=== PATIENT | male | born 1960 | race Caucasian/White ===

== ENCOUNTER 2019-07-12 07:42 | Outpatient (CLI) | payer OTHER, SELFPAY ==
[2019-07-12 08:29] LABS: Alanine Aminotransferase 50 U/L (4-50); Albumin Level 4.5 g/dL (3.5-5.1); Alkaline Phosphatase 71 U/L (38-126); Aspartate Amino Transferase 38 U/L (17-59); Bilirubin,Total 0.5 mg/dL (0.2-1.3); Blood Urea Nitrogen 14 mg/dL (9-20); Calcium 8.8 mg/dL (8.4-10.2); Carbon Dioxide 26 mmol/L (22-30); Chloride 107 mmol/L (98-107); Cholesterol 184 mg/dL (0-200); Estimated Glomerular Filt Rate > 60; Glucose 133 mg/dL (75-110); HDL Direct 47 mg/dL; Potassium 4.1 mmol/L (3.4-5.0); Sodium 140 mmol/L (137-145); Triglycerides 262 mg/dL (<150)
[2019-07-12 08:40] LABS: LDL Cholesterol Direct 118 mg/dL
== END 2019-07-12 07:43 | disposition home or self-care (01) ==
PROVIDERS: PCP Internal Medicine; Visit Provider Internal Medicine
DX: E78.5 Hyperlipidemia, unspecified (principal)
CPT/HCPCS: 36415; 80053; 80061

== ENCOUNTER 2019-12-02 07:19 | Outpatient (CLI) | payer OTHER, SELFPAY ==
--- NOTE | ~2019-12-02 | XR_ITS ---
EXAMINATION: XR ankle LT min 3V DATE: 12/02/2019 08:11 INDICATION: Osteoarthritis TECHNIQUE: Anteroposterior, lateral, mortise, and additional oblique view of the ankle were obtained. COMPARISON: None. FINDINGS: Bone alignment is normal. There is no fracture. There is mild osteoarthritis at the tibiota lar and talonavicular joints. Dorsal and plantar calcaneal enthesophytes are noted. The soft tissues are unremarkable. IMPRESSION: 1. Mild osteoarthritis without acute osseous abnormality. Reviewed, dictated and finalized at location B.
--- NOTE | ~2019-12-02 | XR_ITS ---
EXAMINATION: XR hand RT min 3V INDICATION: Osteoarthritis TECHNIQUE: Three views of the right hand are obtained. COMPARISON: 04/16/2018 FINDINGS: There is unchanged mild osteoarthritis of the triscaphe, first carpometacarpal, and first m etacarpophalangeal joints. Moderate osteoarthritis of the second and third metacarpophalangeal joints is also unchanged. There is no fracture. The soft tissues are unremarkable. IMPRESSION: 1. Polyarticular osteoarthritis without acute findings or significant interval change. Reviewed, dictated and finalized at location B.
--- NOTE | ~2019-12-02 | XR_ITS ---
EXAMINATION: XR lumbar spine 2-3V DATE: 12/02/2019 08:11 INDICATION: Osteoarthritis TECHNIQUE: Anteroposterior and lateral views of the lumbar spine, and cone-down lateral view of the l umbosacral junction were obtained. COMPARISON: CT, 11/16/2018 FINDINGS: No acute fracture is identified. Bone alignment is normal. There is a chronic and unchanged L2 compression fracture. Intervertebral disc spaces are normal. There is mild facet osteoarthritis o f the lower lumbar spine. The bowel gas pattern is normal. Calcified atherosclerosis is noted. Degene rative osteophytes project from the anterior endplates of multiple vertebral bodies. IMPRESSION: 1. Mild lumbar spondylosis without acute findings. 2. Unchanged chronic L2 compression fracture. Reviewed, dictated and finalized at location B.
--- NOTE | ~2019-12-02 | XR_ITS ---
EXAMINATION: XR thoracic spine 3V DATE: 12/02/2019 08:11 INDICATION: Osteoarthritis TECHNIQUE: AP, lateral and lateral swimmer's views of the thoracic spine were obtained. COMPARISON: None. FINDINGS: There is no fracture, dislocation, or subluxation. The vertebral body heights and alignment are normal. There is mild loss of intervertebral disc space height at multiple levels in the thoraci c spine. Small degenerative osteophytes project from the anterior endplates of multiple vertebral bod ies. IMPRESSION: 1. Mild thoracic spondylosis without acute findings. Reviewed, dictated and finalized at location B.
--- NOTE | ~2019-12-02 | XR_ITS ---
EXAMINATION: XR hand LT min 3V INDICATION: Osteoarthritis unspecified TECHNIQUE: Three views of the left hand are obtained. COMPARISON: 11/07/2016 FINDINGS: There is unchanged mild to moderate osteoarthritis at the first through third metacarpophal angeal joints. No fracture is identified. Bone alignment is normal. Mild osteoarthritis is seen in a few interphalangeal joints. Soft tissues are unremarkable. IMPRESSION: 1. Polyarticular osteoarthritis without acute findings or significant interval change. Reviewed, dictated and finalized at location B.
--- NOTE | ~2019-12-02 | XR_ITS ---
EXAMINATION: XR ankle RT min 3V INDICATION: Osteoarthritis TECHNIQUE: Four views of the right ankle are obtained. COMPARISON: None available FINDINGS: There is mild osteoarthritis at the tibiotalar joint. There is no fracture, dislocation, or subluxation. Bone alignment is normal. The soft tissues are unremarkable. Dorsal and plantar calcane al enthesophytes are noted. There is mild osteoarthritis of the talonavicular joint. IMPRESSION: 1. Mild osteoarthritis without acute osseous abnormality. Reviewed, dictated and finalized at location B.
[2019-12-02 08:16] LABS: Basophils Absolute Auto 0.1 K/mm3 (0.0-0.1); Basophils Percent Auto 0.8 % (0.2-1.2); Eosinophils Absolute Auto 0.2 K/mm3 (0-0.3); Eosinophils Percent Auto 1.8 % (0-4.4); Hemoglobin 14.9 g/dL (14.0-18.0); Immature Granulocyte Absolute 0.26 K/mm3 (0.00-0.031); Immature Granulocyte Percent A 2.4 % (0-0.5); Lymphocytes Absolute Auto 4.41 K/mm3 (0.9-3.2); Lymphocytes Percent Auto 40.1 % (18.3-44.2); Mean Corpuscular HGB Conc 33.1 g/dl (32-36); Mean Corpuscular Hemoglobin 30.6 pg (26-34); Mean Corpuscular Volume 92.4 fl (80-100); Mean Platelet Volume 9.9 fl (7.4-10.4); Monocytes Percent Auto 8.6 % (2.6-8.5); Neutrophils Absolute Auto 5.1 K/mm3 (1.3-6.7); Neutrophils Percent Auto 46.3 % (45.5-73.1); Platelet Count Result 286 k/mm3 (150-375); Red Blood Count 4.87 M/mm3 (4.6-6.20); Red Cell Distribution Width 13.1 % (11.5-14.5)
[2019-12-02 08:21] LABS: Alanine Aminotransferase 51 U/L (4-50); Albumin Level 4.6 g/dL (3.5-5.1); Alkaline Phosphatase 87 U/L (38-126); Anion Gap 12.9 mmol/L (7-16); Aspartate Amino Transferase 23 U/L (17-59); Bilirubin,Total 0.5 mg/dL (0.2-1.3); Blood Urea Nitrogen 19 mg/dL (9-20); CRP < 0.5 mg/dL (<1.0); Calcium 9.5 mg/dL (8.4-10.2); Carbon Dioxide 26 mmol/L (22-30); Chloride 103 mmol/L (98-107); Cholesterol 229 mg/dL (0-200); Estimated Glomerular Filt Rate > 60; Glucose 153 mg/dL (75-110); HDL Direct 54 mg/dL; Potassium 3.9 mmol/L (3.4-5.0); Sodium 138 mmol/L (137-145); Triglycerides 282 mg/dL (<150); Uric Acid 4.5 mg/dL (3.5-8.5)
[2019-12-02 08:30] LABS: LDL Cholesterol Direct 137 mg/dL
[2019-12-02 08:46] LABS: Free T4 Free Thyroxine 0.81 ng/mL (0.78-2.19)
[2019-12-02 12:23] LABS: Complement C3 170 mg/dL (88-165); Rheumatoid Factor < 8.6 IU/ML (<12)
[2019-12-05 21:24] LABS: Anti Cyclic Citrullinated Pept 155 Units (<20)
[2019-12-05 22:07] LABS: SS-A <1.0; SS-B <1.0; Scleroderma 70 Antibody <1.0
[2019-12-06 09:44] LABS: ANCA Screen Negative (Negative)
[2019-12-06 18:59] LABS: Complement Total CH50 >60 U/mL (31-60)
== END 2019-12-02 07:20 | disposition home or self-care (01) ==
PROVIDERS: PCP Internal Medicine; Visit Provider Internal Medicine
DX: E78.5 Hyperlipidemia, unspecified (principal); M25.50 Pain in unspecified joint; M19.90 Unspecified osteoarthritis, unspecified site; M19.071 Primary osteoarthritis, right ankle and foot; M19.072 Primary osteoarthritis, left ankle and foot; M47.894 Other spondylosis, thoracic region; M47.896 Other spondylosis, lumbar region; M19.041 Primary osteoarthritis, right hand; M19.042 Primary osteoarthritis, left hand
CPT/HCPCS: 36415; 72072; 72100; 73130; 73610; 80053; 80061; 84439; 84443; 84550; 85025; 86021; 86038; 86140; 86160; 86162; 86200; 86225; 86235; 86430

== ENCOUNTER 2020-01-02 09:45 | Outpatient (CLI) | payer OTHER, SELFPAY ==
--- NOTE | ~2020-01-02 | CT_ITS ---
EXAMINATION: CT chest wo con DATE: 01/02/2020 10:08 INDICATION: J84.89 Other specified interstitial pulmonary diseases. Shortness of breath. TECHNIQUE: Computed tomography (CT) of the chest was performed without intravenous contrast. Addition al 3D reconstructions utilizing coronal maximum intensity projection (MIP) were performed. Automated exposure control and iterative reconstruction technique were employed. The dose-length product was 60 8.60 mGy-cm. COMPARISON: 11/16/2018 FINDINGS: Chronic mild atelectasis/scarring at the medial lingula and right middle lobe. There is mild bronchie ctasis and small amount of mucus plugging extending towards the region of scarring in the right middl e lobe. Significant improvement in previously seen peripheral groundglass opacities in the dependent lower lobes, essentially resolved on the left and with only mild residual opacities on the right. Jesus e of the groundglass opacity on the axial images appears to correspond to linear discoid atelectasis but appreciated on the sagittal and coronal images. Several scattered tiny calcified and noncalcified pulmonary nodules likely sequela of old granulomatous disease. Chronic 9 mm flat noncalcified pleura l plaque at the apex of the left hemidiaphragm which is unchanged dating back to 05/05/2010. No pleur al effusion. Heart size is normal. Mild scattered atherosclerotic coronary artery calcification. Rail Washer cesar tiny pericardial effusion. Thoracic aorta is normal in caliber with mild scattered atheroscleroti c calcification. No pathologically enlarged thoracic lymphadenopathy. Diffuse hepatic steatosis. Mild thoracic spondylosis. Bone island at the right glenoid. IMPRESSION: 1. Improvement in prior peripheral groundglass opacities in the bilateral lower lobes essentially res olved on the left and significantly decreased on the right. Given the appearance, improvement and pre sence of more definitive mild discoid atelectasis would favor additional atelectasis over chronic int erstitial lung disease such as in a nonspecific interstitial pneumonia (NSIP). 2. Diffuse hepatic steatosis. Reviewed, dictated and finalized at location A. IMPRESSION: 1. Improvement in prior peripheral groundglass opacities in the bilateral lower lobes essentially resolved on the left and significantly decreased on the righ t. Given the appearance, improvement and presence of more definitive mild disco id atelectasis would favor additional atelectasis over chronic interstitial anabelle g disease such as in a nonspecific interstitial pneumonia (NSIP). 2. Diffuse hepatic steatosis.
== END 2020-01-02 09:46 | disposition home or self-care (01) ==
PROVIDERS: PCP Internal Medicine; Visit Provider Internal Medicine Critical Care Medicine
DX: J84.9 Interstitial pulmonary disease, unspecified (principal); K76.0 Fatty (change of) liver, not elsewhere classified
CPT/HCPCS: 71250

== ENCOUNTER 2020-02-24 07:56 | Outpatient (CLI) | payer OTHER, SELFPAY ==
[2020-02-24 08:39] VITALS: PULSE 77; O2SAT 97
[2020-02-24 08:43] VITALS: PULSE 104; O2SAT 95
[2020-02-24 08:44] VITALS: PULSE 104; O2SAT 94
[2020-02-24 08:45] VITALS: PULSE 109; O2SAT 95
[2020-02-24 08:56] VITALS: PULSE 68; O2SAT 96
--- NOTE | 2020-02-24 08:56 | HOMEO2EVAL ---
Home Oxygen Evaluation RC: Home Oxygen (O2) Evaluation Start: 02/24/20 08:53 Freq: Status: Active Protocol: RPE Activity Type Activity Date Activity User E-Sign Co-Sign Detail Recorded Client Recorded Date Recorded By Document 02/24/20 08:39 KRM [id number] 02/24/20 08:56 KRM Document 02/24/20 08:43 KRM [id number] 02/24/20 08:56 KRM Document 02/24/20 08:44 KRM [id number] 02/24/20 08:56 KRM Document 02/24/20 08:45 KRM [id number] 02/24/20 08:56 KRM Document 02/24/20 08:56 KRM [id number] 02/24/20 08:56 KRM 02/24/20 02/24/20 02/24/20 08:39 08:43 08:44 Home O2 Evaluation Test Phase Resting Exercise Exercise Oxygen Delivery Room Air Room Air Room Air Pulse Oximetry (90-100 %) 97 95 94 Pulse Rate (60-100 beats/min) 77 104 H 104 H Activity Tolerance Good Good Rating of Perceived Dyspnea (PD) +2 Mild, Some +3 Moderate Difficulty, Difficulty, But Noticeable to Can Continue the Observer Home Oxygen Evaluation Comments Treatment Charges O2 Evaluation 02/24/20 02/24/20 08:45 08:56 Home O2 Evaluation Test Phase Exercise Resting Oxygen Delivery Room Air Room Air Pulse Oximetry (90-100 %) 95 96 Pulse Rate (60-100 beats/min) 109 H 68 Activity Tolerance Good Rating of Perceived Dyspnea (PD) +3 Moderate Difficulty, But Can Continue Home Oxygen Evaluation Comments Pt. walked 400 feet and 6 flights of stairs Treatment Charges
== END 2020-02-24 07:57 | disposition home or self-care (01) ==
PROVIDERS: PCP Internal Medicine; Visit Provider Internal Medicine Critical Care Medicine
DX: J44.9 Chronic obstructive pulmonary disease, unspecified (principal)
CPT/HCPCS: 94618

== ENCOUNTER 2020-07-01 10:30 | Emergency (ER) | payer OTHER, SELFPAY ==
[2020-07-01] VITALS (18 sets, daily range): BP systolic 116–139; BP diastolic 59–82; PULSE 72–96; RESP 16–30; TEMP 36.6; O2SAT 92–100
--- NOTE | ~2020-07-01 | XR_ITS ---
XR chest 1V portable DATE: 07/01/2020 11:53 INDICATION: Shortness of breath. Covid-positive. TECHNIQUE: Portable AP chest on July 01, 2020 at 1150 hours COMPARISON: 01/02/2020 CT chest FINDINGS: Normal heart size. No hilar or mediastinal enlargement. There are patchy infiltrates in both lower lung zones. No pleural effusion or pulmonary vascular roscoe estion or pneumothorax. IMPRESSION: Patchy bilateral lower lung infiltrates Reviewed, dictated and finalized at location A. TURNER
--- NOTE | ~2020-07-01 | CT_ITS ---
EXAMINATION: CTA chest PE protocol DATE: 07/01/2020 13:24 INDICATION: Shortness of breath, cough. Elevated d-dimer. Covid-positive. TECHNIQUE: Computed tomography angiography (CTA) of the chest was performed with 100 mL Omnipaque-350 intravenous contrast timed to evaluate the pulmonary arteries. Coronal maximum intensity projection 3D-reconstructions were created by the technologist. Automated exposure control and iterative reconst ruction technique were employed. Exam dose: 997.29 mGy-cm total exam DLP. COMPARISON: 01/02/2020 CT diagnostic chest examination 07/01/2020 portable AP chest FINDINGS: There is diagnostic contrast enhancement of the pulmonary arteries and no evidence of pulmo nary embolism. No thoracic aortic aneurysm or dissection. Normal heart size. No pericardial or pleural effusion. No hilar or mediastinal mass lesion or lymphadenopathy. Normal morphology of the adrenal glands. Included upper abdominal structures are unremarkable. There are primarily peripheral patchy infiltrates in the upper lobes. There are more extensive left a nd right lower lobe infiltrates. Bilateral pneumonia and aspiration pneumonitis are considerations. Included skeletal structures are unremarkable with exception of cupping of the superior vertebral end plate of L2 consistent with probable remote compression fracture. IMPRESSION: No evidence of pulmonary embolism Patchy bilateral pulmonary rates, greater in the lower lobes Reviewed, dictated and finalized at Location A. Reviewed, dictated and finalized at location A. NESS PROPOSAL REP
[2020-07-01] MEDS: ALBUTEROL SULFATE NEB 2.5 MG/0.5 ML INH 5 MG INHALATION (11:29)
[2020-07-01] MEDS: IPRATROPIUM BR 0.02% INH SOLN 0.5 MG/2.5 ML VIAL INHALATION (11:29)
[2020-07-01 11:36] LABS: Basophils Percent Auto 0.4 % (0.2-1.2); Eosinophils Absolute Auto 0.3 K/mm3 (0-0.3); Eosinophils Percent Auto 6.1 % (0-4.4); Hematocrit 44.1 % (42.0-52.0); Hemoglobin 14.1 g/dL (14.0-18.0); Immature Granulocyte Absolute 0.07 K/mm3 (0.00-0.031); Immature Granulocyte Percent A 1.4 % (0-0.5); Lymphocytes Absolute Auto 1.31 K/mm3 (0.9-3.2); Lymphocytes Percent Auto 26.7 % (18.3-44.2); Mean Corpuscular Hemoglobin 29.6 pg (26-34); Mean Corpuscular Volume 92.6 fl (80-100); Mean Platelet Volume 9.1 fl (7.4-10.4); Monocytes Absolute Auto 0.8 K/mm3 (0.1-0.6); Monocytes Percent Auto 16.5 % (2.6-8.5); Neutrophils Absolute Auto 2.4 K/mm3 (1.3-6.7); Neutrophils Percent Auto 48.9 % (45.5-73.1); Platelet Count Result 250 k/mm3 (150-375); Red Blood Count 4.76 M/mm3 (4.6-6.20); Red Cell Distribution Width 14.1 % (11.5-14.5); White Blood Count 4.9 K/mm3 (4.5-10.0)
[2020-07-01 11:48] LABS: D Dimer 1.85 ug/mL (<0.48)
[2020-07-01 11:54] LABS: Alanine Aminotransferase 204 U/L (4-50); Albumin Level 4.3 g/dL (3.5-5.1); Alkaline Phosphatase 280 U/L (38-126); Anion Gap 9 mmol/L (8-16); Aspartate Amino Transferase 114 U/L (17-59); Bilirubin,Total 0.4 mg/dL (0.2-1.3); Blood Urea Nitrogen 18 mg/dL (9-20); Calcium 8.5 mg/dL (8.4-10.2); Carbon Dioxide 26 mmol/L (22-30); Chloride 105 mmol/L (98-107); Estimated CRCL calculation 98 ml/min; Estimated Glomerular Filt Rate > 60; Glucose 97 mg/dL (75-110); Potassium 4.2 mmol/L (3.4-5.0); Sodium 140 mmol/L (137-145)
[2020-07-01 12:01] LABS: Add Urine Microscopic? YES; Appearance Urine Clear (Clear); Bacteria Urine Trace /hpf; Bilirubin Urine Negative (Negative); Blood Urine Negative (Negative); Color Urine Amber (Yellow); Glucose Urine UA Negative (Negative); Ketones Urine Negative (Negative); Leukocyte Esterase Ur Negative LEU/UL (Negative); Mucus Urine Rare /lpf; Nitrate Urine Negative (Negative); Protein Urine 1+ mg/dL (Negative); Specific Grav Ur 1.026 (1.001-1.035); Urobilinogen Urine Negative mg/dL (<2.0)
--- NOTE | 2020-07-01 12:26 | ED.URI ---
HPI - URI/Sore Throat General Chief Complaint: Upper Respiratory Infection Stated Complaint: Lethergy, COVID Positive Time Seen by Provider: 07/01/20 10:44 Source: patient Mode of arrival: ambulatory Limitations: no limitations History of Present Illness HPI Narrative: Patient with history of COPD presents Covid positive to 3 days ago however his symptoms began 1 week ago. Patient reports he has had headache, body aches, fever, chills, cough, loose stool intermittently for 1 week. He states that he is tired of his symptoms and he has also noticed some increasing shortness of breath over the past few days. Patient states he has been taking his COPD medication regimen as instructed. Patient denies any wheezing. Patient states he is very annoyed by his body aches from laying around all week and his dry cough. Patient states that he called his primary care 3 days ago and was given a prescription for Z-Ovidio and Tessalon Perles which has not resolved his symptoms. Patient states that he is very agitated as he feels he should be better by now. Related Data Home Medications Medication Instructions Recorded Confirmed Symbicort 07/01/20 albuterol sulfate [ProAir HFA] INHALATION 07/01/20 07/01/20 brimonidine 1 drp EACH EYE BID 07/01/20 hydroxychloroquine 400 mg PO DAILY 07/01/20 latanoprost drp 07/01/20 leflunomide 10 mg PO DAILY 07/01/20 metformin 1,000 mg PO BID 07/01/20 rosuvastatin [Crestor] 20 mg PO DAILY 07/01/20 sulfasalazine 1,000 g PO BID 07/01/20 Allergies Allergy/AdvReac Type Severity Reaction Status Date / Time No Known Allergies Allergy Unknown Verified 07/01/20 13:16 Review of Systems Review of Systems: Narrative: CONSTITUTIONAL: Reports intermittent fevers and body aches, chills, or sweats. EYES: Denies visual changes, redness, or discharge. ENT: Denies rhinorrhea, congestion, sore throat, or otalgia. CARDIOVASCULAR: Denies chest pain, palpitations, or edema. RESPIRATORY: Reports cough or dyspnea. GASTROINTESTINAL: Denies abdominal pain, nausea, vomiting, or diarrhea. GENITOURINARY: Denies dysuria or hematuria. SKIN: Denies rash or itching. MUSCULOSKELETAL: Denies back pain, joint pain, or myalgia. NEUROLOGIC: Reports headache denies numbness, dizziness, or weakness. PSYCHIATRIC: Denies anxiety or depression. [facility] Family History Family History Sibling Acute myocardial infarction Father Cerebrovascular accident Family history of chronic obstructive pulmonary disease Mother Family history of congestive heart failure, Onset Age: 60 Social History Social History Smoking status: Former smoker Smoking end date: 05/08/12 Exam Narrative: Exam Narrative: GENERAL: Well-appearing, well-nourished, and in no acute distress. HEAD: Normocephalic, atraumatic. EYES: PERRLA and EOMI. ENT: Nares clear, no rhinorrhea or epistaxis. Mucous membranes moist. Oropharynx without tonsillar hypertrophy exudate or other lesions. Bilateral TMs pearly peterson nonbulging NECK: Supple. No adenopathy or masses. CHEST: Clear to auscultation. No respiratory distress. No wheezes rales or rhonchi. Speaking in clear sentences without difficulty. Tight cough heard during exam but not persistent. HEART: Regular rate and rhythm. No murmur heard. Normal peripheral pulses. ABDOMEN: Soft, nontender, nondistended, normal active bowel sounds. EXTREMITIES: Normal range of motion. No edema. SKIN: Warm, dry, no rash. NEURO: No focal deficits. Alert and oriented x3. PSYCH: Patient is very agitated. Course Vital Signs Vital signs: Vital Signs Temperature 98 F 07/01/20 10:40 Pulse Rate 90 07/01/20 10:40 Respiratory Rate 22 H 07/01/20 10:40 Blood Pressure 130/62 07/01/20 10:40 Pulse Oximetry 94 07/01/20 10:40 Temperature 97.9 F 07/01/20 13:10 Pulse Rate 73 0
== END 2020-07-01 16:30 | disposition home or self-care (01) ==
PROVIDERS: Physician Assistant; Emergency Provider Emergency Medicine; PCP Internal Medicine
DX: U07.1 COVID-19 (principal)
CPT/HCPCS: 36415; 71045; 71275; 80053; 81001; 85025; 85380; 94640; 96365; 99284; J0131; Q9967

== ENCOUNTER → 2021-06-16 11:37 | Outpatient (CLI) | payer OTHER, SELFPAY ==
--- NOTE | ~2021-06-16 | CT_ITS ---
EXAMINATION:CT diagnostic chest wo con DATE: 06/16/2021 11:56 INDICATION: Nonspecific interstitial pneumonia. TECHNIQUE: Computed tomography (CT) of the chest was performed without intravenous contrast. Automate d exposure control and iterative reconstruction technique were employed. The dose-length product (DLP ) was 667.41 mGy-cm. COMPARISON: Chest CT 07/01/2020 FINDINGS: There is mild emphysema. There are subpleural bands in the lower lobes. There is mild atele ctasis in right middle lobe and lingula. There is mild bronchiectasis in right middle lobe and lingul a. A calcified left lung nodule is consistent with old granulomatous disease. No pleural effusion. Th e heart size is normal. There are coronary artery calcifications. No pericardial effusion. There are calcifications of aortic valve. There is mild thoracic spondylosis. IMPRESSION: 1. Mild emphysema and mild chronic lung disease, improved from 07/01/2020. Reviewed, dictated and finalized at location A. R CLEANER
== END ==
PROVIDERS: Visit Provider Nurse Practitioner Family
DX: J84.89 Other specified interstitial pulmonary diseases (principal); Z87.891 Personal history of nicotine dependence; J43.9 Emphysema, unspecified
CPT/HCPCS: 71250

== ENCOUNTER → 2023-02-08 07:38 | Outpatient (CLI) | payer OTHER, SELFPAY ==
--- NOTE | ~2023-02-08 | XR_ITS ---
Right Hand Technique: PA and lateral views were obtained. Clinical History: Osteoarthritis COMPARISON: 12/02/2019 Findings: No acute fracture or dislocation is seen. Osseous alignment is anatomic. There is mild to m oderate osteoarthritis of the first, second, and third metacarpophalangeal joints. Soft tissues are u nremarkable. Impression: Mild to moderate osteoarthritis of the first, second, and third metacarpophalangeal joints, similar o verall to prior exam. Reviewed, dictated and finalized at location M. Impression: Mild to moderate osteoarthritis of the first, second, and third metacarpophalan geal joints, similar overall to prior exam.
--- NOTE | ~2023-02-08 | XR_ITS ---
Left Hand Technique: PA and lateral views were obtained. Clinical History: Osteoarthritis COMPARISON: 12/02/2019 Findings: No acute fracture or dislocation is seen. There is mild to moderate osteoarthritis of the f irst, second, and third metacarpophalangeal joints, similar to prior exam.. Soft tissues are unremark able. Impression: Degenerative change of the first, second, and third metacarpophalangeal joints, similar to prior exam . Reviewed, dictated and finalized at location M. Impression: Degenerative change of the first, second, and third metacarpophalangeal joints, similar to prior exam.
== END ==
DX: M19.90 Unspecified osteoarthritis, unspecified site (principal)
CPT/HCPCS: 73120

== ENCOUNTER 2023-02-14 07:25 | Outpatient (CLI) | payer MEDICARE, SELFPAY ==
--- NOTE | ~2023-02-14 | CT_ITS ---
EXAMINATION: CT lung screening DATE: 02/14/2023 08:55 INDICATION: Personal history of nicotine dependence TECHNIQUE: Computed tomography (CT) of the chest was performed without intravenous contrast. The dose -length product was 258.73 mGy-cm. Automated exposure control and iterative reconstruction technique were employed. COMPARISON: CT dated 06/16/2019 FINDINGS: Heart size is normal. No focal air space disease, pulmonary edema, pleural effusion or susp ected pneumothorax. No thoracic lymphadenopathy. There is a possible left renal mass posteriorly, sara ge 138. No endobronchial lesions. There is linear subsegmental atelectasis/scarring predominantly aff ecting the lower lungs. There is mild bronchial wall thickening predominantly affecting the lower lob es, suspicious for bronchitis. No suspicious pulmonary nodules or masses. Mild emphysema. No focal ly tic or blastic lesions. There is atherosclerosis of the aorta and coronary arteries. IMPRESSION: 1. Lung-RADS category 1: Negative. Continue annual screening with noncontrast low-dose chest CT in 12 months. Reviewed, dictated and finalized at location L. IMPRESSION: 1. Lung-RADS category 1: Negative. Continue annual screening with noncontrast l ow-dose chest CT in 12 months.
== END 2023-02-14 07:26 | disposition home or self-care (01) ==
PROVIDERS: Visit Provider Physician Assistant
DX: Z12.2 Encounter for screening for malignant neoplasm of respiratory organs (principal); Z87.891 Personal history of nicotine dependence
CPT/HCPCS: 71271

== ENCOUNTER 2024-10-24 01:18 | Day surgery (SDC) | payer MEDICARE, SELFPAY ==
[2024-10-09 12:22] VITALS: BMI 33.2
--- NOTE | 2024-10-23 09:41 | P.PNAN_ITS ---
Anes - Eval Pre Procedure Procedure: Operation Date: 10/24/24 09:00 Proposed Procedures p Colonoscopy - Humphrey Weston MD Date/Time: 10/23/24 09:41 Pre Op Diagnosis: personal hx colon polyps Patient Data Age: 64 Gender: M Height: 1.78 m Weight: 105 kg Allergies Allergy/AdvReac Type Severity Reaction Status Date / Time No Known Allergies Allergy Unknown Verified 10/09/24 12:18 Home Medications ?Medication ?Instructions ?Recorded ?Confirmed ?Type brimonidine 0.15 % eye drops 1 drp EACH EYE BID 07/01/20 10/09/24 History hydroxychloroquine 400 mg PO DAILY 07/01/20 10/09/24 History latanoprost 0.005 % eye drops 1 drp EACH EYE DAILY 07/01/20 10/09/24 History leflunomide 10 mg tablet 10 mg PO DAILY 07/01/20 10/09/24 History metformin 1,000 mg tablet 1,000 mg PO BID 07/01/20 10/09/24 History rosuvastatin 20 mg tablet (Crestor) 20 mg PO DAILY 07/01/20 10/09/24 History alprazolam 0.25 mg tablet (Xanax) 0.25 mg PO QHS PRN anxiety 01/23/23 10/09/24 History fluticasone propionate 50 1 spray intranasal BID #16 grams 01/23/23 10/09/24 Rx mcg/actuation nasal spray,suspension (Flonase Allergy Relief) albuterol sulfate 2.5 mg/3 mL 2.5 mg (3 mL) inhalation Q4-6H PRN 04/04/23 10/09/24 Rx (0.083 %) solution for nebulization shortness of breath or wheezing #180 mL albuterol sulfate 90 mcg/actuation 2 inh inhalation Q4-6H PRN 09/26/23 10/09/24 Rx aerosol inhaler (ProAir HFA) shortness of breath or wheezing 90 days #25.5 grams budesonide-formoterol HFA 160 2 puff inhalation Q12H #30.6 grams 01/03/24 10/09/24 Rx mcg-4.5 mcg/actuation aerosol inhaler (Symbicort) semaglutide 0.25 mg or 0.5 mg (2 mg subcut 01/03/24 01/03/24 History mg/3 mL) subcutaneous pen injector (Ozempic) valsartan 160 mg tablet 160 mg PO DAILY 01/03/24 10/09/24 History Results Review: All pre-operative results and documents have been reviewed as part of the pre- operative evaluation. [facility] Past Medical History Medical History (Updated 10/23/24 @ 09:41 by Romeo Gutierrez, DO) Rheumatoid arthritis Diabetes type 2, controlled Chronic obstructive pulmonary disease, unspecified Obstructive sleep apnea (adult) (pediatric) Family History Family History Sibling Acute myocardial infarction Father Cerebrovascular accident Family history of chronic obstructive pulmonary disease Mother Family history of congestive heart failure, Onset Age: 60 Social History Social History Smoking packs per day: 1 Smoking cigarettes per day: 20.0 Years smoked: 30 Smoking pack-years: 30.00 Smoking status: Former smoker Tobacco type: cigarettes Smoking end date: 05/08/12 Alcohol intake: never Substance use: never Substance use type: does not use Living arrangements: with family Spiritual care concerns: No Exam Day of Procedure 10/23/24 09:41
--- OUTSIDE RECORDS SUMMARY | 2024-10-24 01:23 | XMS_ITS | Encounter Summary ---
Author Organization [facility] Address [facility] [place] [address] Care Team Providers Care Nurses' Association Counselor Name Role Phone Alexandra Tang Primary Care Provider [phone] Encounter Details Date Type Department Care Team (Latest Contact Info) Description 01/18/2018 Abstract [facility] , Andrea Craig MD Social History Tobacco Use Types Packs/Day Years Used Date Smoking Tobacco: Never Assessed Sex and Gender Information Value Date Recorded Sex Assigned at Not on file Legal Sex Male 7:08 PM CDT Gender Identity Not on file Sexual Orientation Not on file documented as of this encounter Plan of Treatment Not on file documented as of this encounter Visit Diagnoses Not on filedocumented in this encounter Care Teams Nurses' Association Counselor Relationship Specialty Start Date End Date Alexandra Tang APNP [address] [place] [id number] PCP - General NURSE PRACTITIONER 04/20/18 documented as of this encounter
--- OUTSIDE RECORDS SUMMARY | 2024-10-24 01:23 | XMS_ITS | Encounter Summary ---
Author Organization [facility] Health Address [address] [place] [address] Care Team Providers Care Virtual Classroom Manager Name Role Phone Darren Zapata MD Primary Care Provider [phone] Pcp, [facility] Primary Care Provider Unavailable Encounter Details Date Type Department Care Team (Late st Contact Info) Description 01/31/2019 Lab Requisition [facility] [address] [facility] [place] [address] Fredy Sanchez MD [address] [place] [address] Social History Tobacco Use Types Packs/Day Years Used Date Smoking Tobacco: Every Day Cigarettes 0.8 35 Smokeless Tobacco: Never Alcohol Use Standard Drinks/Week Comments Yes 0 (1 standard drink = 0.6 oz pur e alcohol) 12/d during football games. 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 Not on file Not on file documented as of this encounter Plan of Treatment Not on file documented as of this encounter Procedures Procedure Name Priority Date/Time Associated Diagnosis Comments DERMATOPATHOLOGY Routine 01/31/2019 12:0 0 AM CDT documented in this encounter Results * DERMATOPATHOLOGY (01/31/2019 12:00 AM CDT) Case Report Dermatopathology Report Case: [id number] Authorizing Provider: Fredy Sanchez MD Collected: 01/31/2019 12:00 AM Ordering Location: [facility] Received: 01/31/2019 12:28 PM Pathologist: Hasmukh Martini MD Specimen: Skin, right thumb 3:04 PM CDT DERMATOPATHOLOGY LABORATORY Final Diagnosis Specimen A. SKIN, right thumb: PSORIASIFORM DERMATITIS (L44.8) (see microscopic description and comment) 3:04 PM CDT DERMATOPATHOLOGY LABORATORY at 1504 CDT Clinical History R/O psoriasis vs hand eczema. 3:04 PM CDT DERMATOPATHOLOGY LABORATORY Gross Description Specimen A: Received is one formalin filled container labeled with the patient's name and designated right thumb. The specimen consists of a shave biopsy measuring [id number]. Jar 0. 3:04 PM CDT DERMATOPATHOLOGY LABORATORY Microscopic Description Specimen A. SKIN, right thumb: There is psoriasiform hyperplasia of the epidermis with focal parakeratosis and spongiosis. There is a superficial, mainly lymphohistiocytic inflammatory infiltrate. Grocott's methenamine silver (GMS) stain fails to highlight fungal elements in the available sections. COMMENT: The histological findings are favored to represent hand eczema. Early or partially treated psoriasis is less likely because the granular layer, while focally diminished, is preserved. 3:04 PM CDT DERMATOPATHOLOGY LABORATORY Disclaimer An external and internal positive and negative controls are appropriate for the histochemical, immunohistochemical and immunofluorescence stain(s) in this case (if any), except where stated explicitly. The performance characteristics of the stain(s) cited in this report were developed and its performance characteristic determined by the Dermatopathology Laboratory at [facility], directed by Dr. Darren Martini. These tests need not be, and therefore are not, approved by the [place] Food and Drug Administration. The tests are used for clinical purposes. Billing Codes Specimen Charges Stain Charges 54670 1 29637 1 10/01/201 9 3:04 PM CDT DERMATOPATHOLOGY LABORATORY Embedded Images 9 3:04 PM CDT DERMATOPATHOLOGY LABORATORY Pathology/Cytolog y TISSUE SPECIMEN FROM SKIN / Unknown 01/31/2019 01/31/2019 12:28 PM CDT us Fredy Sanchez MD LAB - PATHOLOGY/CYTOLOGY ORDERAB LES Final Result DERMATOPATHOLOGY LABORATORY [facility] - Department of Dermatology [address] [facility] [address]th [address] Lab [address] [phone] documented in this encounter Visit Diagnoses Not on filedocumented in this encounter Care Teams Virtual Classroom Manager Relationship Specialty Start Date End Date Darren Zapata MD [address] [address] PCP - General Internal Medicine 12/27/11 12/01/22 [facility] PCP - General 12/02/22 documented as of this encounter
--- OUTSIDE RECORDS SUMMARY | 2024-10-24 01:23 | XMS_ITS | Clinical Summary ---
Author Organization [facility] Address [address] [place] [address] Care Team Providers Care Private Chef Name Role Phone Pcp, [facility] Primary Care Provider Unavailable Source Comments [facility],non-owned Affiliates and Associated Physician Practices is amultiple site organization consisting of ambulatory clinics and hospital sitesin [place], [place], [place] and [place]. This disclosure is being madepursuant to the Care Everywhere program and may not contain all information available regarding this patient. Last updated 18.[employer] [facility] Allergies No known active allergies Medications * Be aware that medications may not be up to date on this document. Alwaysverify current medications with the patient. ALPRAZolam (XANAX) 1 MG tabletIndications :Anxiety,Need for vaccine for Td (tetanus-diphther ia),Lipid screening,Screeni ng for other and unspecified endocrine, nutritional, metabolic, and immunity disorders,Tobacco abuse,History of colonic polyps,PHILIP (obstructive sleep apnea),Osteoarthr itis of hand Take 1 Tab by mouth at bedtime. 30 Tab 0 02/01/2011 Active Active Problems Problem Noted Date Diagnosed Date Hyperlipidemia with target LDL less than 130 Overview (03/15/2015): Hypertriglyceridemia TSH normal 11/16 Healthy Heart Diet handout 12/17 History of colonic polyps 02/01/2011 Tobacco abuse 02/01/2011 Alcohol use 02/01/2011 Overview (02/01/2011): Binge pattern with football viewing. Preventative health care 02/01/2011 Overview (02/01/2011): SASHA: opts to stop screening. Osteoarthritis of hand 02/01/2011 Anxiety 10/12/2010 PHILIP (obstructive sleep apnea) 02/01/2010 Plantar fasciitis 02/01/2010 Overview (02/01/2011): H/o cortisone injections. Using inserts. Immunizations Immunization Administration Dates Next Due INFLUENZA VACCINE 01/27/2011 PNEUMOCOCCAL PPSV23 12/29/2011 TDAP (7yrs+) 02/01/2011 Family History Medical History Relation Name Comments Arthritis - Rheumatoid Father Heart Failure Father Arthritis - Rheumatoid Maternal Grandfather Diabetes Maternal Grandfather Diabetes Maternal Grandmother Diabetes Mother Heart Failure Mother Arthritis - Rheumatoid Paternal Grandfather Relation Name Status Comments Father (Age 60's) Maternal Grandfather Maternal Grandmother Mother (Age 62) Paternal Grandfather Sister 1 Alive Sister 2 Alive Sister 3 Alive Sister 4 Alive Sister 5 Alive Social History Tobacco Use Types Packs/Day Years Used Date Smoking Tobacco: Every Day Cigarettes 0.8 35 Smokeless Tobacco: Never Alcohol Use Standard Drinks/Week Comments Yes 0 (1 standard drink = 0.6 oz pur e alcohol) 12/d during football games. 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 Not on file Not on file Last Filed Vital Signs Vital Sign Reading Time Taken Comments Blood Pressure 100/64 12/29/2011 3:12 PM CDT Pulse 72 12/29/2011 3:12 PM CDT Temperature 36.1 C (97 F) 12/29/2011 3:12 PM CDT Respiratory Rate 12 07/07/2010 4:06 PM ELECTRONIC TECHNICIAN Oxygen Saturation 98% 12/29/2011 3:12 PM CDT Inhaled Oxygen Concentration - - Weight 89.5 kg (197 lb 6.4 oz) 12/29/2011 3:12 P M CDT Height 176.5 cm (5' 9.5) 12/29/2011 3:12 PM CDT Body Mass Index 28.73 12/29/2011 3:12 PM CDT Plan of Treatment Health Maintenance Due Date Last Done Comments COLOGUARD (AGES 45-75) - COL ON CA SCREENING 1960 CT COLONOGRAPHY - COLON CA SCREENING 1960 FIT - COLON CA SCREENING 1960 FLEX SIG - COLON CA SCREENING 1960 HEPATITIS C SCREENING 04/30/1976 ZOSTER VACCINE (1 of 2) 2008 LIPID TESTING 11/11/2012 11/12/2011 PNEUMOCOCCAL VACCINE 50+ (2 of 2 - PCV) 12/28/2012 12/29/2011 COLON MONITORING 05/21/2020 05/21/2010 COLONOSCOPY - COLON CA SCREENING 05/21/2020 05/21/19 11 Colorectal Cancer Screening 05/21/2020 DTAP/TDAP/TD VACCINES (2 - T d or Tdap) 02/01/2021 02/01/2011 AAA SCREENING 2023 COVID-19 VACCINE (1 - 2023-2 5 season) 2024 DEPRESSION SCREENING 05/08/2024 INFLUENZA VACCINE (Season Ended) 2025 01/28/20 11 Respiratory Syncytial Virus (RSV) Vaccine Pt: or over 60 yrs (1 - 1-dose 75+ series) 2033 HEPATITIS B VACCINE Aged Out No longe r eligible based on patient's age to complete this topic HIB VACCINE Aged Out No longer eligi ble based on patient's age to complete this topic HPV VACCINE Aged Out No longer eligi ble based on patient's age to complete this topic MENINGOCOCCAL (Group B) VACC INE SHARED DECISION-MAKING Aged Out No longer eligibl e based on patient's age to complete this topic MENINGOCOCCAL GROUPS A/C/Y/W VACCINE Aged Out No longer eligible b ased on patient's age to complete this topic Procedures Procedure Name Priority Date/Time Associated Diagnosis Comments LDL CHOLESTEROL (EXTERNAL RESULT ENTRY) Routine 11/12/2011 7:10 AM CDT ENDOSCOPY, COLON, SCREENING Routine 05/21/2010 from Last 3 Months or Most Recently Relevant to Health Maintenance Results * LDL CHOLESTEROL (EXTERNAL RESULT ENTRY) (11/12/2011 7:10 AM CDT) LDL Calculated (EXTERNAL RESULT) 183 mg/dl OTHER LAB Blood specimen (specimen) BLOOD SPECIMEN / Unknown 11/12/2011 7:10 AM CDT Narrative OTHER LAB - 11/14/2011 9:15 AM CDT The accuracy and reliability of the test results are authenticated by the outside CLIA certified lab, and not by the [facility] Flag Signaler. The full result should be confirmed by review of the scanned report from the outside CLIA certified lab that performed the test before clinical decisions are rendered based on these results. Exercise caution when tracking results measured by different laboratories that have not been subject to cross validation studies. us Historical Provider LAB - CHEMISTRY ORDERABLE S Final Result OTHER LAB * ENDOSCOPY, COLON, SCREENING (05/21/2010) us Provider Unknown GI PROCEDURE ORDERABLES Final R esult from Last 3 Months or Most Recently Relevant to Health Maintenance Insurance [facility] Care Teams Private Chef Relationship Specialty Start Date End Date PcpYoko [facility] PCP - General 12/02/22
--- OUTSIDE RECORDS SUMMARY | 2024-10-24 01:23 | XMS_ITS | Continuity of Care Document ---
Author Organization [facility] Address [id number] [place] [address] [address] [place] [address] Phone Care Team Providers Care Shaper Set Up Operator Name Role Phone Raghavendrasy, Edward Unavailable Unavailable Advance Directives Directive Yes / No Effective Date File Name No Information Encounters Encounter Description Practice Location Reason(s) For Visit Diagnoses Date Provider Providers Copied on Encounter [facility], [address], [place], [place], [id number], [place] tel:[phone] [address] [facility] No Information Nov-0 6-200 0 Doisy Edward. [address] , [address], [place], [address], [place]. tel:[phone] Family History Family Member Type Diagnosis Age At Onset No Information Payers Payer name Insurance type Covered republican ID Authoriza tion(s) No Information Social History [...]
--- OUTSIDE RECORDS SUMMARY | 2024-10-24 01:23 | XMS_ITS | Data Portability ---
Author Organization [place] [employer], Main Office Address [address] [place] [address] Assessment No assessment recorded. Plan of Treatment Reminders Order Date Submit Date Provider Last Modified By Organization Details Last Modified Time Details Appointments None recorded. Lab HbA1c (hemoglobin A1c), blood 2024 025 mario Buchanan, [address], [place], [address], 5 08:20:34 lipid panel, serum 2024 025 SHIVA Buchanan, [address], [place], [address], 5 13:25:41 CMP, serum or plasma 2024 025 SHIVA Buchanan, [address], [place], [address], 5 13:26:17 CBC w/ auto diff 2024 025 SHIVA Buchanan, [address], [place], [address], 5 12:22:53 unlisted lab - T4, free 2024 025 mario Buchanan, [address], [place], [address], 5 08:20:34 TSH, ultra-sensi tive, serum 2024 025 mario Buchanan, [address], [place], [address], 08:20:34 PSA, serum or plasma 2024 025 [facility], [address], [place], [address], 5 09:03:00 HbA1c (hemoglobin A1c), blood 2024 025 [email or web address] [facility], [address], [place], [address], 5 08:52:05 lipid panel, serum 2024 025 SHIVA [facility], [address], [place], [address], 14:48:34 CMP, serum or plasma 2024 025 [facility], [address], [place], [address], 5 08:53:32 CBC w/ auto diff 2024 025 [email or web address] [facility], [address], [place], [address], 5 08:54:20 unlisted lab - T4, free 2024 025 [email or web address] [facility], [address], [place], [address], 5 08:55:04 TSH, ultra-sensi tive, serum 2024 025 [email or web address] [facility], [address], [place], [address], 5 08:55:47 HbA1c (hemoglobin A1c), blood 2023 024 [email or web address] [facility], [address], [place], [address], 4 10:15:05 BNP (B-type natriuretic peptide), serum or plasma 2023 024 [email or web address] [facility], [address], [place], [address], 4 10:15:05 lipid panel, serum 2023 024 SHIVA [facility], [address], [place], [address], 4 11:12:34 CMP, serum or plasma 2023 024 [place] [facility], [address], [place], [address], 4 11:12:56 CBC w/ auto diff 2023 024 [email or web address] [facility], [address], [place], [address], 4 10:58:03 lipoprotein a, qn, serum 2023 024 [email or web address] [facility], [address], [place], [address], 4 17:46:06 PSA, serum or plasma 2022 023 [email or web address], [address], [place], [address], 4 09:55:33 HbA1c (hemoglobin A1c), blood 2022 023 [email or web address] [facility], [address], [place], [address], 4 09:55:32 microalbumi n/creatinin e, mass ratio, urine 2022 023 [email or web address], [address], [address], [place], [address], 4 09:55:32 CMP, serum or plasma 2022 023 [email or web address], [address], [address], [place], [address], 4 09:55:32 lipid panel, serum 2022 023 [email or web address], [address], [place], [address], 4 09:55:32 CBC w/ auto diff 2022 023 [email or web address], [address], [address], [place], [address], 4 09:55:32 Referral None recorded. Procedures None recorded. Surgeries None recorded. Imaging None recorded. Medication Orders hydrocodone 7.5 mg-acetamin ophen 325 mg tablet 2024 025 [facility] #[id number], [address] [facility], [place], [address], 5 17:59:57 Patient TargetsNo targets recorded. Patient Instructions Encounter Date Encounter Id Patient Instructions Last Modified By Organization Details Last Modified Time 04/21/2023 [id number] risk assessment* [email or web address] Not availabl e 04/21/2023 11:25:42 INFLUENZA VACCIN E Next vaccination to be given fall _2023__ TD/TDAP Patient will get at local pharmacy/health department PNEUMONIA VACCINE Recommended at age 65 SHINGLES Patient will get at local pharmacy/health department PSA recommended COLORECTAL SCREENING No screening necessary patient is up to date DEPRESSION SCREENING Negative BMI Overweight try to lose 10% of your body weight NUTRITION Eat Heart Healthy Diet PHYSICAL ACTIVITY Need more exercise/physical activity ALCOHOL USE Occasional/Social Use TOBACCO USE non smoker LUNG CANCER SCREENING Non Smoker-not indicated SEXUALLY ACTIVE HEPATITIS C SCREENING Not indicated GLUCOSE SCREENING up to date LIPID SCREENING up to date [email or web address] Not available 04/21/2023 11:09:33 Adult health examination risk assessment stable. Follow-up for hyperlipidemia - type 2 diabetes -chronic obstructive lung disease -obstructive sleep apnea -rheumatoid arthritis. All clinically stable. Last blood work showed the cholesterol to be under good control. Will check a CBC, CMP, lipid, PSA, hemoglobin A1c and microalbumin. Continue on current Rx and follow-up in six months. FDA recommendations of a influenza, RSV, COVID, pneumococcal immunizations strongly advised. Portions of the record may have been created with voice recognition software. Occasional wrong-word or s ound-a-like substitutions may have occurred due to the inherent limitations of voice recognition software. Read the chart carefully and recognize, using context, where substitutions have occurred. [email or web address] Not available 04/21/2023 11:25:19 10/04/2023 [id number] Dyspnea on exertion, hyperlipidemia, type 2 diabetes, rheumatoid arthritis, chronic obstructive lung disease and obesity class two. Will set up with Cardiology. Check a CBC, CMP, lipid, thyroid, BNP and lipoprotein level. Start on aspirin 81 mg daily. EKG shows a sinus mechanism essentially within normal limits. Needs to be set up with cardiology candido for further evaluation Chest x-ray Keep Appointment: Mon 09:20 AM Maulik Portions of the record may have been created with voice recognition software. Occasional wrong-word or s ound-a-like substitutions may have occurred due to the inherent limitations of voice recognition software. Read the chart carefully and recognize, using context, where substitutions have occurred. [email or web address] Not available 10/04/2023 17:21:25 05/02/2024 [id number] Lumbar radiculopathy, hyperlipidemia, type 2 diabetes and chronic obstructive pulmonary disease all clinically stable. No interval complaints of any new problems. Will give a trial of some tramadol 50 mg t.i.d. For pain. Will set up with pain management for further evaluation try to get copies of the disc. Follow-up already in May 15 for a follow-up appointment. Additional Orders - Directives - Recommendations 1. Set up with pain management for left lumbar radiculopathy Keep Appointment: Mon 02:30 PM Kleberg Portions of the record may have been created with voice recognition software. Occasional wrong-word or s ound-a-like substitutions may have occurred due to the inherent limitations of voice recognition software. Read the chart carefully and recognize, using context, where substitutions have occurred. Created: Cruz Becerril M.D. 05.02.2024 10:54 AM [email or web address] Not available 05/02/2024 11:54:05 05/14/2024 [id number] dementia rating scale-2* [email or web address] Not available 05/14/2024 17:59:54 multi-dimensiona l health assessment questionnaire* [email or web address] Not available 05/14/2024 17:59:54 alcohol misuse* Not available 05/14/2024 17:59:53 depression screening* [email or web address] Not available 05/14/2024 17:59:54 Personalized Hea lth Plan and Screening Recommendations Advance Directives - Do you have one? Yes Advance Directives - Do we have your advance directive on file in your health record? No, please bring in a copy at your earliest convenience Primary Prevention/Interven tion (prevents or decreases the chance of common diseases from occurring) Smoking Risk: Non Smoker Alcohol Misuse Screening: Negative Weight: Overweight try to lose 10% of your body weight Physical activity: Need more exercise/physical activity Nutrition: Average Eat heart healthy diet Fall Risk (screened today): Low Vaccines Pneumococcal: Recommended today Influenza: Your next one in the fall of this year Chronic Disease Risks Stroke: Intermediate Risk Active diagnosis, Continue current treatment plan Heart Attack: Intermediate Risk Active diagnosis, Continue current treatment plan Clogging of the Arteries: Intermediate Risk Active diagnosis, Continue current treatment plan Diabetes: Intermediate Risk Active diagnosis, Continue current treatment plan Secondary Prevention/Interven tion (detects treatable diseases before they may cause symptoms, disability, or ) Prostate Cancer Screening: Your next PSA in:recommended Colon Cancer Screening: Colonoscopy Recommended Date Screening Last Performed: _2019__ Eye Disease Screening: up to date Dementia Risk: Low I have no recommendations Depression Screening: Negative [email or web address] Not available 05/14/2024 17:43:27 Medicare wellnes s evaluation risk assessment stable. Follow-up for a left testicular mass, type 2 diabetes, hyperlipidemia, left sciatica. Will continue on current Rx check blood work consisting of CBC, CMP, lipid, thyroid, PSA, and needs to be set up for colonoscopy in the near future. Continue on current Rx will need also an ultrasound of the testicle. Additional Orders - Directives - Recommendations 1. Ultrasound of the left testicle for enlargement and pain of the testicle 2. Low-dose CT scan of the chest 3. Colonoscopy follow-up of years 4. urology consult for left testicular enlargement and pain Follow Up: 4 Months Approximate Date: 09/11/2024 Portions of the record may have been created with voice recognition software. Occasional wrong-word or s ound-a-like substitutions may have occurred due to the inherent limitations of voice recognition software. Read the chart carefully and recognize, using context, where substitutions have occurred. Created: Cruz Becerril M.D. 05.14.2024 04:58 PM [email or web address] Not available 05/14/2024 17:58:21 09/17/2024 [id number] Follow-up chroni c obstructive lung disease, sleep apnea, hyperlipidemia, type two diabetes, obesity class two and essential hypertension all clinically stable. No interval complaints of any new problems. Will check blood work consisting of CBC, CMP, lipid, thyroid, hemoglobin A1c. Is due for a colonoscopy as well as low-dose CT scan of the chest. Will continue with current Rx and follow-up in four months Additional Orders - Directives - Recommendations 1. Colonoscopy apparently already scheduled 2. low-dose CT scan of the chest Follow Up: 4 Months Approximate Date: 01/15/2025 Portions of record are template driven. When necessary additional context will be provided. Additionally some portions have been created with voice recognition software. Occasional wrong-word or s ound-a-like substitutions may have occurred due to the inherent limitations of voice recognition software. Read the chart carefully and recognize, using context, where substitutions may have occurred. Created: Cruz Becerril M.D. 09.17.2024 09:35 AM [email or web address] Not available 09/17/2024 10:35:56 Reason for Referral None Reported. Results Created Date Observation Date Name Description Value Unit Range Abnormal Flag Note LastModifiedBy Organization Detail LastModifiedTime 10/05/19 24 10/05/2023 CBC/C OMPLE TE BLD COUNT W/DIF F white blood cells 6.0 x10'3 /uL 4.2-10 .8 Not Available [facility] (Lab) [address], [address], 10/05/2023 10:58:03 10/05/19 24 10/05/2023 CBC/C OMPLE TE BLD COUNT W/DIF F red blood cells 4.48 x10'6 /uL 4.10-5 .80 Not Available [facility] (Lab) [address] [place], [address], 10/05/2023 10:58:03 10/05/19 24 10/05/2023 CBC/C OMPLE TE BLD COUNT W/DIF F hemoglobin 13.7 g/dL 13.2-1 7.0 Not Available [facility] (Lab) [address] [place], [address], 10/05/2023 10:58:03 10/05/19 24 10/05/2023 CBC/C OMPLE TE BLD COUNT W/DIF F hematocrit 42.1 % 39.3-5 0.0 Not Available [facility] (Lab) [address] [place], [address], 10/05/2023 10:58:03 10/05/19 24 10/05/2023 CBC/C OMPLE TE BLD COUNT W/DIF F mean red cell volume 94.0 fL 80.0-9 7.0 Not Available [facility] (Lab) [address] [place], [address], 10/05/2023 10:58:03 10/05/19 24 10/05/2023 CBC/C OMPLE TE BLD COUNT W/DIF F mean red cell hemoglobin 30.6 pg 27.0-3 3.0 Not Available [facility] (Lab) [address] [place], [address], 10/05/2023 10:58:03 10/05/19 24 10/05/2023 CBC/C OMPLE TE BLD COUNT W/DIF F mean RBC HGB concentratio n 32.5 g/dL 31.0-3 6.0 Not Available [facility] (Lab) [address] [place], [address], 10/05/2023 10:58:03 10/05/19 24 10/05/2023 CBC/C OMPLE TE BLD COUNT W/DIF F red cell distribution width 13.6 % 11.8-1 5.5 Not Available [facility] (Lab) [address] [place], [address], 10/05/2023 10:58:03 10/05/19 24 10/05/2023 CBC/C OMPLE TE BLD COUNT W/DIF F platelets 240 x10'3 /uL 150-40 0 Not Available [facility] (Lab) [address] [place], [address], 10/05/2023 10:58:03 10/05/19 24 10/05/2023 CBC/C OMPLE TE BLD COUNT W/DIF F mean platelet volume 10.6 fL 9.0-12 .4 Not Available [facility] (Lab) [address] [place], [address], 10/05/2023 10:58:03 10/05/19 24 10/05/2023 CBC/C OMPLE TE BLD COUNT W/DIF F neutrophils 52.5 % 39.0-7 2.0 Not Available [facility] (Lab) [address] [place], [address], 10/05/2023 10:58:03 10/05/19 24 10/05/2023 CBC/C OMPLE TE BLD COUNT W/DIF F lymphocytes 27.4 % 16.0-4 7.0 Not Available [facility] (Lab) [address] [place], [address], 10/05/2023 10:58:03 10/05/19 24 10/05/2023 CBC/C OMPLE TE BLD COUNT W/DIF F monocytes 10.4 % 5.0-12 .0 Not Available [facility] (Lab) [address] [place], [address], 10/05/2023 10:58:03 10/05/19 24 10/05/2023 CBC/C OMPLE TE BLD COUNT W/DIF F eosinophils 7.7 % 1.0-7. 0 high Not Available [facility] (Lab) [address] [place], [address], 10/05/2023 10:58:03 10/05/19 24 10/05/2023 CBC/C OMPLE TE BLD COUNT W/DIF F basophils 1.5 % 0.0-2. 0 Not Available [facility] (Lab) [address] [place], [address], 10/05/2023 10:58:03 10/05/19 24 10/05/2023 CBC/C OMPLE TE BLD COUNT W/DIF F immature granulocytes 0.5 % 0.00-0 .50 Not Available [facility] (Lab) [address] [place], [address], 10/05/2023 10:58:03 10/05/19 24 10/05/2023 CBC/C OMPLE TE BLD COUNT W/DIF F neutrophils, absolute count 3.14 x10'3 /uL 1.5-8. 0 Not Available [facility] (Lab) [address] [place], [address], 10/05/2023 10:58:03 10/05/19 24 10/05/2023 CBC/C OMPLE TE BLD COUNT W/DIF F lymphocytes, absolute count 1.64 x10'3 /uL 1.07-3 .43 Not Available [facility] (Lab) [address] [place], [address], 10/05/2023 10:58:03 10/05/19 24 10/05/2023 CBC/C OMPLE TE BLD COUNT W/DIF F monocytes, absolute count 0.62 x10'3 /uL 0.29-0 .99 Not Available [facility] (Lab) [address] [place], [address], 10/05/2023 10:58:03 10/05/19 24 10/05/2023 CBC/C OMPLE TE BLD COUNT W/DIF F eosinophils, absolute count 0.46 x10'3 /uL 0.02-0 .53 Not Available [facility] (Lab) [address] [place], [address], 10/05/2023 10:58:03 10/05/19 24 10/05/2023 CBC/C OMPLE TE BLD COUNT W/DIF F basophils, absolute count 0.09 x10'3 /uL 0.01-0 .08 high Not Available [facility] (Lab) [address] [place], [address], 10/05/2023 10:58:03 10/05/19 24 10/05/2023 CBC/C OMPLE TE BLD COUNT W/DIF F immature granulocytes ,absolute 0.03 x10'3 /uL 0.00-0 .05 Not Available [facility] (Lab) [address] [place], [address], 10/05/2023 10:58:03 10/05/19 24 10/05/2023 CBC/C OMPLE TE BLD COUNT W/DIF F nucleated red blood cells 0.0 % -0 Not Available [facility] (Lab) [address] [place], [address], 10/05/2023 10:58:03 10/05/19 24 10/05/2023 CBC/C OMPLE TE BLD COUNT W/DIF F NRBC# 0.00 x10'3 /uL Not Available [facility] (Lab) [address] [place], [address], 10/05/2023 10:58:03 10/05/19 24 10/05/2023 BNP/B -NATR IURET IC PEPTI DE BNP 7 pg/mL 4-125 Not Available [facility] (Lab) [address] [place], [address], 10/05/2023 11:08:51 10/05/19 24 10/05/2023 LIPID PANEL cholesterol 126 mg/dL 140-19 9 low NIH CONNOR NSUS RECOM MENDA TION FOR ASHLY STERO L: ADULT CHILD LOW RISK: <200 <170 BORDE RLINE : <200- 239 ----- HIGH RISK: >240 >200 Not Available [facility] (Lab) [address] [place], [address], 10/05/2023 11:12:34 10/05/19 24 10/05/2023 LIPID PANEL triglyceride s 164 mg/dL 0-150 high NIH CONNOR NSUS REPOR T RECOM MENDA TION FOR TRIGL YCERI JOSIANE: ADULT CHILD LOW RISK: <150 ----- BODER LINE: 150-1 99 ----- HIGH RISK: >200 ----- Not Available [facility] (Lab) [address] [place], [address], 10/05/2023 11:12:34 10/05/19 24 10/05/2023 LIPID PANEL HDL cholesterol 43 mg/dL 40- Not Available [facility] (Lab) [address] [place], [address], 10/05/2023 11:12:34 10/05/19 24 10/05/2023 LIPID PANEL LDL cholesterol, calculated 50 mg/dL 0-130 NIH CONNOR NSUS REPOR T RECOM MENDA TIONS FOR LDL: ADULT CHILD LOW RISK <130 <110 (OPTI MAL LDL) <100 ----- BORDE RLINE : 130-1 59 ----- HIGH RISK: >160 >130 A TRIGL YCERI DE RESUL T >400 INVAL IDATE S THE CALCU LATIO N FOR LDL FRACT IONAT ION - THE LDL RESUL T WILL NOT BE REPOR NICO. Not Available [facility] (Lab) [address] [place], [address], 10/05/2023 11:12:34 10/05/19 24 10/05/2023 COMPR EHENS ROSAURA METAB OLIC PANEL sodium 143 mmol/ L 137-14 5 Not Available [facility] (Lab) [address] [place], [address], 10/05/2023 11:12:56 10/05/19 24 10/05/2023 COMPR EHENS ROSAURA METAB OLIC PANEL potassium 4.3 mmol/ L 3.5-5. 1 Not Available [facility] (Lab) [address] [place], [address], 10/05/2023 11:12:56 10/05/19 24 10/05/2023 COMPR EHENS ROSAURA METAB OLIC PANEL chloride 112 mmol/ L 98-107 high Not Available [facility] (Lab) [address] [place], [address], 10/05/2023 11:12:56 10/05/19 24 10/05/2023 COMPR EHENS ROSAURA METAB OLIC PANEL carbon dioxide 25 mmol/ L 22-30 Not Available [facility] (Lab) [address] [place], [address], 10/05/2023 11:12:56 10/05/19 24 10/05/2023 COMPR EHENS ROSAURA METAB OLIC PANEL anion gap 10.3 mmol/ L 14-22 low Not Available [facility] (Lab) [address] [place], [address], 10/05/2023 11:12:56 10/05/19 24 10/05/2023 COMPR EHENS ROSAURA METAB OLIC PANEL glucose 124 mg/dL 70-99 high Not Available [facility] (Lab) [address] [place], [address], 10/05/2023 11:12:56 10/05/19 24 10/05/2023 COMPR EHENS ROSAURA METAB OLIC PANEL BUN 16 mg/dL 8-19 Not Available [facility] (Lab) [address] [place], [address], 10/05/2023 11:12:56 10/05/19 24 10/05/2023 COMPR EHENS ROSAURA METAB OLIC PANEL creatinine 0.81 mg/dL 0.66-1 .25 Not Available [facility] (Lab) [address], [place], [address], 10/05/2023 11:12:56 10/05/19 24 10/05/2023 COMPR EHENS ROSAURA METAB OLIC PANEL GFR >60 Refer ence Range : [place] ge GFR Healt hy Adult : >60 mL/mi n/1.7 3 m2 Chron ic Kidne y Disea se: 15-60 mL/mi n/1.7 3 m2 Kidne y Failu re: <15/m L/min /1.73 m2 www.n iddk. nih.g ov The MDRD study equat ion has not been valid ated in child naz <18 years of age; pregn ant women ; the elder ly >85 years of age; or in some racia l or ethni c subgr oups, such as [facility] nics. Outsi de the valid ated francisco j eters , estim ated GFR is less accur ate, requi ring clini libby judgm ent on a case- by-ca se basis . Clini libby inter preta tion for other races and ages must be made by the clini abhilash. The MDRD study equat ion has not been valid ated for the evalu ation of serum creat inine relat ed to nutri suresh l statu s or medic ation usage . For perso ns <18 years of age, a pedia tric GFR calcu lator is avail able on the F websi te: https ://taco w.chet colin.o rg/pr ofess ional s/kdo qi/gf r_cal culat or Not Available [facility] (Lab) [address] [place], [address], 10/05/2023 11:12:56 10/05/19 24 10/05/2023 COMPR EHENS ROSAURA METAB OLIC PANEL alkaline phosphatase 70 U/L 38-126 Not Available [facility] (Lab) [address] [place], [address], 10/05/2023 11:12:56 10/05/19 24 10/05/2023 COMPR EHENS ROSAURA METAB OLIC PANEL alanine aminotransfe rase 39 U/L 0-50 Not Available [facility] (Lab) [address] [place], [address], 10/05/2023 11:12:56 10/05/19 24 10/05/2023 COMPR EHENS ROSAURA METAB OLIC PANEL aspartate aminotransfe rase 32 U/L 15-46 Not Available [facility] (Lab) [address] [place], [address], 10/05/2023 11:12:56 10/05/19 24 10/05/2023 COMPR EHENS ROSAURA METAB OLIC PANEL bilirubin, total 0.60 mg/dL 0.20-1 .30 Not Available [facility] (Lab) [address] [place], [address], 10/05/2023 11:12:56 10/05/19 24 10/05/2023 COMPR EHENS ROSAURA METAB OLIC PANEL calcium 9.6 mg/dL 8.4-10 .2 Not Available [facility] (Lab) [address] [place], [address], 10/05/2023 11:12:56 10/05/19 24 10/05/2023 COMPR EHENS ROSAURA METAB OLIC PANEL total protein 7.1 g/dL 6.3-8. 2 Not Available [facility] (Lab) [address] [place], [address], 10/05/2023 11:12:56 10/05/19 24 10/05/2023 COMPR EHENS ROSAURA METAB OLIC PANEL albumin 4.8 g/dL 3.0-4. 4 high Not Available [facility] (Lab) [address] [place], [address], 10/05/2023 11:12:56 10/05/19 24 10/05/2023 COMPR EHENS ROSAURA METAB OLIC PANEL globulin 2.3 g/dL 2.6-4. 2 low Not Available [facility] (Lab) [address] [place], [address], 10/05/2023 11:12:56 10/05/19 24 10/05/2023 COMPR EHENS ROSAURA METAB OLIC PANEL A/G ratio 2.1 ratio 1.0-2. 0 high Not Available [facility] (Lab) [address] [place], [address], 10/05/2023 11:12:56 10/05/19 24 10/05/2023 HEMOG LOBIN A1C HA1C 7.3 % 4.0-6. 0 high Diabe damon Scree emiliano Crite yen: <5.7% Consi stent with absen ce of diabe damon 5.7-6 .4% Consi stent with incre ased risk for diabe damon (pred iabet es) >OR=6 .5% Consi stent with diabe damon REFER ENCE: Diabe damon Care 2016, 39(Zamora ppl.1 ):s13 -s22 Not Available [facility] (Lab) [address] [place], [address], 10/05/2023 11:56:47 10/05/19 24 10/06/2023 LIPOP ROTEI N (A) lipoprotein (A) 193.1 nmol/ L <75.0 high Note: Value s great er than or equal to 75.0 nmol/ L may indic ate an indep enden t risk facto r for CHD, but must be evalu ated with cauti on when appli ed to non-C aucas steffi popul ation s due to the influ ence of karin ic facto rs on Lp(a) acros s ethni citie s. Perfo rmed at: [facility] - [facility] n [address] [facility], [place] [address]63 Lab Direc tor: Diogo vanegas PhD, Phone : [phone] Not Available [facility] (Lab) [address] [place], [address], 10/06/2023 17:46:06 05/15/19 25 05/15/2024 CBC/C OMPLE TE BLD COUNT W/DIF F white blood cells 6.7 x10'3 /uL 4.2-10 .8 Not Available [facility] (Lab) [address] [place], [address], 05/15/2024 13:23:29 05/15/19 25 05/15/2024 CBC/C OMPLE TE BLD COUNT W/DIF F red blood cells 4.55 x10'6 /uL 4.10-5 .80 Not Available [facility] (Lab) [address] [place], [address], 05/15/2024 13:23:29 05/15/19 25 05/15/2024 CBC/C OMPLE TE BLD COUNT W/DIF F hemoglobin 13.8 g/dL 13.2-1 7.0 Not Available [facility] (Lab) [address] [place], [address], 05/15/2024 13:23:29 05/15/19 25 05/15/2024 CBC/C OMPLE TE BLD COUNT W/DIF F hematocrit 43.1 % 39.3-5 0.0 Not Available [facility] (Lab) [address] [place], [address], 05/15/2024 13:23:29 05/15/19 25 05/15/2024 CBC/C OMPLE TE BLD COUNT W/DIF F mean red cell volume 94.7 fL 80.0-9 7.0 Not Available [facility] (Lab) [address] [place], [address], 05/15/2024 13:23:29 05/15/19 25 05/15/2024 CBC/C OMPLE TE BLD COUNT W/DIF F mean red cell hemoglobin 30.3 pg 27.0-3 3.0 Not Available [facility] (Lab) [address] [place], [address], 05/15/2024 13:23:29 05/15/19 25 05/15/2024 CBC/C OMPLE TE BLD COUNT W/DIF F mean RBC HGB concentratio n 32.0 g/dL 31.0-3 6.0 Not Available [facility] (Lab) [address] [place], [address], 05/15/2024 13:23:29 05/15/19 25 05/15/2024 CBC/C OMPLE TE BLD COUNT W/DIF F red cell distribution width 13.2 % 11.8-1 5.5 Not Available [facility] (Lab) [address] [place], [address], 05/15/2024 13:23:29 05/15/19 25 05/15/2024 CBC/C OMPLE TE BLD COUNT W/DIF F platelets 248 x10'3 /uL 150-40 0 Not Available [facility] (Lab) [address] [place], [address], 05/15/2024 13:23:29 05/15/19 25 05/15/2024 CBC/C OMPLE TE BLD COUNT W/DIF F mean platelet volume 10.2 fL 9.0-12 .4 Not Available [facility] (Lab) [address] [place], [address], 05/15/2024 13:23:29 05/15/19 25 05/15/2024 CBC/C OMPLE TE BLD COUNT W/DIF F neutrophils 53.1 % 39.0-7 2.0 Not Available [facility] (Lab) [address] [place], [address], 05/15/2024 13:23:29 05/15/19 25 05/15/2024 CBC/C OMPLE TE BLD COUNT W/DIF F lymphocytes 29.1 % 16.0-4 7.0 Not Available [facility] (Lab) [address] [place], [address], 05/15/2024 13:23:29 05/15/19 25 05/15/2024 CBC/C OMPLE TE BLD COUNT W/DIF F monocytes 11.0 % 5.0-12 .0 Not Available [facility] (Lab) [address] [place], [address], 05/15/2024 13:23:29 05/15/19 25 05/15/2024 CBC/C OMPLE TE BLD COUNT W/DIF F eosinophils 5.5 % 1.0-7. 0 Not Available [facility] (Lab) [address] [place], [address], 05/15/2024 13:23:29 05/15/19 25 05/15/2024 CBC/C OMPLE TE BLD COUNT W/DIF F basophils 1.0 % 0.0-2. 0 Not Available [facility] (Lab) [address] [place], [address], 05/15/2024 13:23:29 05/15/19 25 05/15/2024 CBC/C OMPLE TE BLD COUNT W/DIF F immature granulocytes 0.3 % 0.00-0 .50 Not Available [facility] (Lab) [address] [place], [address], 05/15/2024 13:23:29 05/15/19 25 05/15/2024 CBC/C OMPLE TE BLD COUNT W/DIF F neutrophils, absolute count 3.58 x10'3 /uL 1.5-8. 0 Not Available [facility] (Lab) [address] [place], [address], 05/15/2024 13:23:29 05/15/19 25 05/15/2024 CBC/C OMPLE TE BLD COUNT W/DIF F lymphocytes, absolute count 1.96 x10'3 /uL 1.07-3 .43 Not Available [facility] (Lab) [address] [place], [address], 05/15/2024 13:23:29 05/15/19 25 05/15/2024 CBC/C OMPLE TE BLD COUNT W/DIF F monocytes, absolute count 0.74 x10'3 /uL 0.29-0 .99 Not Available [facility] (Lab) [address] [place], [address], 05/15/2024 13:23:29 05/15/19 25 05/15/2024 CBC/C OMPLE TE BLD COUNT W/DIF F eosinophils, absolute count 0.37 x10'3 /uL 0.02-0 .53 Not Available [facility] (Lab) [address] [place], [address], 05/15/2024 13:23:29 05/15/19 25 05/15/2024 CBC/C OMPLE TE BLD COUNT W/DIF F basophils, absolute count 0.07 x10'3 /uL 0.01-0 .08 Not Available [facility] (Lab) [address] [place], [address], 05/15/2024 13:23:29 05/15/19 25 05/15/2024 CBC/C OMPLE TE BLD COUNT W/DIF F immature granulocytes ,absolute 0.02 x10'3 /uL 0.00-0 .05 Not Available [facility] (Lab) [address] [place], [address], 05/15/2024 13:23:29 05/15/19 25 05/15/2024 CBC/C OMPLE TE BLD COUNT W/DIF F nucleated red blood cells 0.0 % -0 Not Available [facility] (Lab) [address] [place], [address], 05/15/2024 13:23:29 05/15/19 25 05/15/2024 CBC/C OMPLE TE BLD COUNT W/DIF F NRBC# 0.00 x10'3 /uL Not Available [facility] (Lab) [address] [place], [address], 05/15/2024 13:23:29 05/15/19 25 05/15/2024 T4 FREE free T4 1.02 NG/dL 0.78-2 .19 Not Available [facility] (Lab) [address] [place], [address], 05/15/2024 13:42:25 05/15/1905/15/2024 TSH thyroid-stim ulating hormone <0.015 uIU/m L 0.465- 4.680 low Not Available [facility] (Lab) [address] [place], [address], 05/15/2024 17:15:56 05/15/1905/15/2024 PSA, TOTAL PSA, total 0.25 NG/mL 0.00-4 .00 Not Available [facility] (Lab) [address] [place], [address], 05/15/2024 15:23:38 05/15/1905/15/2024 LIPID PANEL cholesterol 132 mg/dL 140-19 9 low NIH CONNOR NSUS RECOM MENDA TION FOR ASHLY STERO L: ADULT CHILD LOW RISK: <200 <170 BORDE RLINE : <200- 239 ----- HIGH RISK: >240 >200 Not Available [facility] (Lab) [address] [place], [address], 05/15/2024 14:48:34 05/15/19 25 05/15/2024 LIPID PANEL triglyceride s 142 mg/dL 0-150 NIH CONNOR NSUS REPOR T RECOM MENDA TION FOR TRIGL YCERI JOSIANE: ADULT CHILD LOW RISK: <150 ----- BODER LINE: 150-1 99 ----- HIGH RISK: >200 ----- Not Available [facility] (Lab) [address] [place], [address], 05/15/2024 14:48:34 05/15/1905/15/2024 LIPID PANEL HDL cholesterol 43 mg/dL 40- Not Available [facility] (Lab) [address] [place], [address], 05/15/2024 14:48:34 05/15/19 25 05/15/2024 LIPID PANEL LDL cholesterol, calculated 61 mg/dL 0-130 NIH CONNOR NSUS REPOR T RECOM MENDA TIONS FOR LDL: ADULT CHILD LOW RISK <130 <110 (OPTI MAL LDL) <100 ----- BORDE RLINE : 130-1 59 ----- HIGH RISK: >160 >130 A TRIGL YCERI DE RESUL T >400 INVAL IDATE S THE CALCU LATIO N FOR LDL FRACT IONAT ION - THE LDL RESUL T WILL NOT BE REPOR NICO. Not Available [facility] (Lab) [address] [place], [address], 05/15/2024 14:48:34 05/15/1905/15/2024 COMPR EHENS ROSAURA METAB OLIC PANEL sodium 144 mmol/ L 137-14 5 Not Available [facility] (Lab) [address] [place], [address], 05/15/2024 14:48:39 05/15/19 25 05/15/2024 COMPR EHENS ROSAURA METAB OLIC PANEL potassium 4.3 mmol/ L 3.5-5. 1 Not Available [facility] (Lab) [address] [place], [address], 05/15/2024 14:48:39 05/15/19 25 05/15/2024 COMPR EHENS ROSAURA METAB OLIC PANEL chloride 111 mmol/ L 98-107 high Not Available [facility] (Lab) [address] [facility], [address], 05/15/2024 14:48:39 05/15/19 25 05/15/2024 COMPR EHENS ROSAURA METAB OLIC PANEL carbon dioxide 26 mmol/ L 22-30 Not Available [facility] (Lab) [address] [place], [address], 05/15/2024 14:48:39 05/15/19 25 05/15/2024 COMPR EHENS ROSAURA METAB OLIC PANEL anion gap 11.3 mmol/ L 14-22 low Not Available [facility] (Lab) [address] [place], [address], 05/15/2024 14:48:39 05/15/19 25 05/15/2024 COMPR EHENS ROSAURA METAB OLIC PANEL glucose 110 mg/dL 70-99 high Not Available [facility] (Lab) [address] [place], [address], 05/15/2024 14:48:39 05/15/19 25 05/15/2024 COMPR EHENS ROSAURA METAB OLIC PANEL BUN 15 mg/dL 8-19 Not Available [facility] (Lab) [address] [place], [address], 05/15/2024 14:48:39 05/15/19 25 05/15/2024 COMPR EHENS ROSAURA METAB OLIC PANEL creatinine 0.83 mg/dL 0.66-1 .25 Not Available [facility] (Lab) [address] [place], [address], 05/15/2024 14:48:39 05/15/19 25 05/15/2024 COMPR EHENS ROSAURA METAB OLIC PANEL GFR >60 Refer ence Range : [place] ge GFR Healt hy Adult : >60 mL/mi n/1.7 3 m2 Chron ic Kidne y Disea se: 15-60 mL/mi n/1.7 3 m2 Kidne y Failu re: <15/m L/min /1.73 m2 www.n iddk. nih.g ov The MDRD study equat ion has not been valid ated in child naz <18 years of age; pregn ant women ; the elder ly >85 years of age; or in some racia l or ethni c subgr oups, such as Hispa nics. Outsi de the valid ated francisco j eters , estim ated GFR is less accur ate, requi ring clini libby judgm ent on a case- by-ca se basis . Clini libby inter preta tion for other races and ages must be made by the clini abhilash. The MDRD study equat ion has not been valid ated for the evalu ation of serum creat inine relat ed to nutri suresh l statu s or medic ation usage . For perso ns <18 years of age, a pedia tric GFR calcu lator is avail able on the [facility] websi te: https ://taco chua.chet colin.o rg/pr ofess ional s/kdo qi/gf r_cal culat or Not Available [facility] (Lab) [address] [place], [address], 05/15/2024 14:48:39 05/15/19 25 05/15/2024 COMPR EHENS ROSAURA METAB OLIC PANEL alkaline phosphatase 69 U/L 38-126 Not Available [facility] (Lab) [address] [place], [address], 05/15/2024 14:48:39 05/15/19 25 05/15/2024 COMPR EHENS ROSAURA METAB OLIC PANEL alanine aminotransfe rase 33 U/L 0-50 Not Available [facility] (Lab) [address] [place], [address], 05/15/2024 14:48:39 05/15/19 25 05/15/2024 COMPR EHENS ROSAURA METAB OLIC PANEL aspartate aminotransfe rase 26 U/L 15-46 Not Available [facility] (Lab) [address] [place], [address], 05/15/2024 14:48:39 05/15/19 25 05/15/2024 COMPR EHENS ROSAURA METAB OLIC PANEL bilirubin, total 0.70 mg/dL 0.20-1 .30 Not Available [facility] (Lab) [address] [place], [address], 05/15/2024 14:48:39 05/15/19 25 05/15/2024 COMPR EHENS ROSAURA METAB OLIC PANEL calcium 9.7 mg/dL 8.4-10 .2 Not Available [facility] (Lab) [address] [place], [address], 05/15/2024 14:48:39 05/15/19 25 05/15/2024 COMPR EHENS ROSAURA METAB OLIC PANEL total protein 7.5 g/dL 6.3-8. 2 Not Available [facility] (Lab) [address] [place], [address], 05/15/2024 14:48:39 05/15/19 25 05/15/2024 COMPR EHENS ROSAURA METAB OLIC PANEL albumin 5.0 g/dL 3.0-4. 4 high Not Available [facility] (Lab) [address] [place], [address], 05/15/2024 14:48:39 05/15/19 25 05/15/2024 COMPR EHENS ROSAURA METAB OLIC PANEL globulin 2.5 g/dL 2.6-4. 2 low Not Available [facility] (Lab) [address] [place], [address], 05/15/2024 14:48:39 05/15/19 25 05/15/2024 COMPR EHENS ROSAURA METAB OLIC PANEL A/G ratio 2.0 ratio 1.0-2. 0 Not Available [facility] (Lab) [address] [place], [address], 05/15/2024 14:48:39 05/15/19 25 05/15/2024 HEMOG LOBIN A1C HA1C 6.4 % 4.0-6. 0 high Diabe damon Scree emiliano Crite yen: <5.7% Consi stent with absen ce of diabe damon 5.7-6 .4% Consi stent with incre ased risk for diabe damon (pred iabet es) >OR=6 .5% Consi stent with diabe damon REFER ENCE: Diabe damon Care 2016, 39(Zamora ppl.1 ):s13 -s22 Not Available [facility] (Lab) [address] [place], [address], 05/15/2024 19:42:36 09/18/19 25 09/17/2024 CBC/C OMPLE TE BLD COUNT W/DIF F white blood cells 5.7 x10'3 /uL 4.2-10 .8 Not Available [facility] (Lab) [address] [place], [address], 09/17/2024 12:22:53 09/18/19 25 09/17/2024 CBC/C OMPLE TE BLD COUNT W/DIF F red blood cells 4.55 x10'6 /uL 4.10-5 .80 Not Available [facility] (Lab) [address] [place], [address], 09/17/2024 12:22:53 09/18/19 25 09/17/2024 CBC/C OMPLE TE BLD COUNT W/DIF F hemoglobin 13.9 g/dL 13.2-1 7.0 Not Available [facility] (Lab) [address] [place], [address], 09/17/2024 12:22:53 09/18/19 25 09/17/2024 CBC/C OMPLE TE BLD COUNT W/DIF F hematocrit 43.2 % 39.3-5 0.0 Not Available [facility] (Lab) [address] [place], [address], 09/17/2024 12:22:53 09/18/19 25 09/17/2024 CBC/C OMPLE TE BLD COUNT W/DIF F mean red cell volume 94.9 fL 80.0-9 7.0 Not Available [facility] (Lab) [address] [place], [address], 09/17/2024 12:22:53 09/18/19 25 09/17/2024 CBC/C OMPLE TE BLD COUNT W/DIF F mean red cell hemoglobin 30.5 pg 27.0-3 3.0 Not Available [facility] (Lab) [address] [place], [address], 09/17/2024 12:22:53 09/18/19 25 09/17/2024 CBC/C OMPLE TE BLD COUNT W/DIF F mean RBC HGB concentratio n 32.2 g/dL 31.0-3 6.0 Not Available [facility] (Lab) [address] [place], [address], 09/17/2024 12:22:53 09/18/19 25 09/17/2024 CBC/C OMPLE TE BLD COUNT W/DIF F red cell distribution width 13.2 % 11.8-1 5.5 Not Available [facility] (Lab) [address] [place], [address], 09/17/2024 12:22:53 09/18/19 25 09/17/2024 CBC/C OMPLE TE BLD COUNT W/DIF F platelets 222 x10'3 /uL 150-40 0 Not Available [facility] (Lab) [address] [place], [address], 09/17/2024 12:22:53 09/18/19 25 09/17/2024 CBC/C OMPLE TE BLD COUNT W/DIF F mean platelet volume 10.3 fL 9.0-12 .4 Not Available [facility] (Lab) [address] [place], [address], 09/17/2024 12:22:53 09/18/19 25 09/17/2024 CBC/C OMPLE TE BLD COUNT W/DIF F neutrophils 58.7 % 39.0-7 2.0 Not Available [facility] (Lab) [address] [place], [address], 09/17/2024 12:22:53 09/18/19 25 09/17/2024 CBC/C OMPLE TE BLD COUNT W/DIF F lymphocytes 23.2 % 16.0-4 7.0 Not Available [facility] (Lab) [address] [place], [address], 09/17/2024 12:22:53 09/18/1909/17/2024 CBC/C OMPLE TE BLD COUNT W/DIF F monocytes 10.0 % 5.0-12 .0 Not Available [facility] (Lab) [address] [place], [address], 09/17/2024 12:22:53 09/18/19 25 09/17/2024 CBC/C OMPLE TE BLD COUNT W/DIF F eosinophils 5.8 % 1.0-7. 0 Not Available [facility] (Lab) [address] [place], [address], 09/17/2024 12:22:53 09/18/19 25 09/17/2024 CBC/C OMPLE TE BLD COUNT W/DIF F basophils 1.8 % 0.0-2. 0 Not Available [facility] (Lab) [address] [place], [address], 09/17/2024 12:22:53 09/18/19 25 09/17/2024 CBC/C OMPLE TE BLD COUNT W/DIF F immature granulocytes 0.5 % 0.00-0 .50 Not Available [facility] (Lab) [address] [place], [address], 09/17/2024 12:22:53 09/18/19 25 09/17/2024 CBC/C OMPLE TE BLD COUNT W/DIF F neutrophils, absolute count 3.33 x10'3 /uL 1.5-8. 0 Not Available [facility] (Lab) [address] [place], [address], 09/17/2024 12:22:53 09/18/19 25 09/17/2024 CBC/C OMPLE TE BLD COUNT W/DIF F lymphocytes, absolute count 1.32 x10'3 /uL 1.07-3 .43 Not Available [facility] (Lab) [address] [place], [address], 09/17/2024 12:22:53 09/18/19 25 09/17/2024 CBC/C OMPLE TE BLD COUNT W/DIF F monocytes, absolute count 0.57 x10'3 /uL 0.29-0 .99 Not Available [facility] (Lab) [address] [place], [address], 09/17/2024 12:22:53 09/18/19 25 09/17/2024 CBC/C OMPLE TE BLD COUNT W/DIF F eosinophils, absolute count 0.33 x10'3 /uL 0.02-0 .53 Not Available [facility] (Lab) [address] [place], [address], 09/17/2024 12:22:53 09/18/19 25 09/17/2024 CBC/C OMPLE TE BLD COUNT W/DIF F basophils, absolute count 0.10 x10'3 /uL 0.01-0 .08 high Not Available [facility] (Lab) [address] [place], [address], 09/17/2024 12:22:53 09/18/19 25 09/17/2024 CBC/C OMPLE TE BLD COUNT W/DIF F immature granulocytes ,absolute 0.03 x10'3 /uL 0.00-0 .05 Not Available [facility] (Lab) [address] [place], [address], 09/17/2024 12:22:53 09/18/19 25 09/17/2024 CBC/C OMPLE TE BLD COUNT W/DIF F nucleated red blood cells 0.0 % -0 Not Available [facility] (Lab) [address] [place], [address], 09/17/2024 12:22:53 09/18/19 25 09/17/2024 CBC/C OMPLE TE BLD COUNT W/DIF F NRBC# 0.00 x10'3 /uL Not Available [facility] (Lab) [address] [place], [address], 09/17/2024 12:22:53 09/18/19 25 09/17/2024 LIPID PANEL cholesterol 141 mg/dL 140-19 9 NIH CONNOR NSUS RECOM MENDA TION FOR ASHLY STERO L: ADULT CHILD LOW RISK: <200 <170 BORDE RLINE : <200- 239 ----- HIGH RISK: >240 >200 Not Available [facility] (Lab) [address] [place], [address], 09/17/2024 13:25:41 09/18/19 25 09/17/2024 LIPID PANEL triglyceride s 145 mg/dL 0-150 NIH CONNOR NSUS REPOR T RECOM MENDA TION FOR TRIGL YCERI JOSIANE: ADULT CHILD LOW RISK: <150 ----- BODER LINE: 150-1 99 ----- HIGH RISK: >200 ----- Not Available [facility] (Lab) [address] [place], [address], 09/17/2024 13:25:41 09/18/19 25 09/17/2024 LIPID PANEL HDL cholesterol 47 mg/dL 40- Not Available [facility] (Lab) [address] [place], [address], 09/17/2024 13:25:41 09/18/19 25 09/17/2024 LIPID PANEL LDL cholesterol, calculated 65 mg/dL 0-130 NIH CONNOR NSUS REPOR T RECOM MENDA TIONS FOR LDL: ADULT CHILD LOW RISK <130 <110 (OPTI MAL LDL) <100 ----- BORDE RLINE : 130-1 59 ----- HIGH RISK: >160 >130 A TRIGL YCERI DE RESUL T >400 INVAL IDATE S THE CALCU LATIO N FOR LDL FRACT IONAT ION - THE LDL RESUL T WILL NOT BE REPOR NICO. Not Available [facility] (Lab) [address] [place], [address], 09/17/2024 13:25:41 09/18/19 25 09/17/2024 COMPR EHENS ROSAURA METAB OLIC PANEL sodium 142 mmol/ L 137-14 5 Not Available [facility] (Lab) [address] [place], [address], 09/17/2024 13:26:17 09/18/19 25 09/17/2024 COMPR EHENS ROSAURA METAB OLIC PANEL potassium 4.8 mmol/ L 3.5-5. 1 Not Available [facility] (Lab) [address] [place], [address], 09/17/2024 13:26:17 09/18/19 25 09/17/2024 COMPR EHENS ROSAURA METAB OLIC PANEL chloride 106 mmol/ L 98-107 Not Available [facility] (Lab) [address] [place], [address], 09/17/2024 13:26:17 09/18/19 25 09/17/2024 COMPR EHENS ROSAURA METAB OLIC PANEL carbon dioxide 25 mmol/ L 22-30 Not Available [facility] (Lab) [address] [place], [address], 09/17/2024 13:26:17 09/18/19 25 09/17/2024 COMPR EHENS ROSAURA METAB OLIC PANEL anion gap 15.8 mmol/ L 14-22 Not Available [facility] (Lab) [address] [place], [address], 09/17/2024 13:26:17 09/18/19 25 09/17/2024 COMPR EHENS ROSAURA METAB OLIC PANEL glucose 100 mg/dL 70-99 high Not Available [facility] (Lab) [address] [place], [address], 09/17/2024 13:26:17 09/18/19 25 09/17/2024 COMPR EHENS ROSAURA METAB OLIC PANEL BUN 12 mg/dL 8-19 Not Available [facility] (Lab) [address] [place], [address], 09/17/2024 13:26:17 09/18/19 25 09/17/2024 COMPR EHENS ROSAURA METAB OLIC PANEL creatinine 0.74 mg/dL 0.66-1 .25 Not Available [facility] (Lab) [address] [place], [address], 09/17/2024 13:26:17 09/18/19 25 09/17/2024 COMPR EHENS ROSAURA METAB OLIC PANEL GFR >60 Refer ence Range : [place] ge GFR Healt hy Adult : >60 mL/mi n/1.7 3 m2 Chron ic Kidne y Disea se: 15-60 mL/mi n/1.7 3 m2 Kidne y Failu re: <15/m L/min /1.73 m2 www.n iddk. nih.g ov The MDRD study equat ion has not been valid ated in child naz <18 years of age; pregn ant women ; the elder ly >85 years of age; or in some racia l or ethni c subgr oups, such as Nikko nics. Outsi de the valid ated francisco j eters , estim ated GFR is less accur ate, requi ring clini libby judgm ent on a case- by-ca se basis . Clini libby inter preta tion for other races and ages must be made by the clini abhilash. The MDRD study equat ion has not been valid ated for the evalu ation of serum creat inine relat ed to nutri suresh l statu s or medic ation usage . For perso ns <18 years of age, a pedia tric GFR calcu lator is avail able on the [facility] websi te: https ://taco w.chet colin.o rg/pr ofess ional s/kdo qi/gf r_cal culat or Not Available [facility] (Lab) [address] [place], [address], 09/17/2024 13:26:17 09/18/19 25 09/17/2024 COMPR EHENS ROSAURA METAB OLIC PANEL alkaline phosphatase 86 U/L 38-126 Not Available [facility] (Lab) [address] [place], [address], 09/17/2024 13:26:17 09/18/19 25 09/17/2024 COMPR EHENS ROSAURA METAB OLIC PANEL alanine aminotransfe rase 40 U/L 0-50 Not Available [facility] (Lab) [address] [place], [address], 09/17/2024 13:26:17 09/18/19 25 09/17/2024 COMPR EHENS ROSAURA METAB OLIC PANEL aspartate aminotransfe rase 35 U/L 15-46 Not Available [facility] (Lab) [address] [place], [address], 09/17/2024 13:26:17 09/18/19 25 09/17/2024 COMPR EHENS ROSAURA METAB OLIC PANEL bilirubin, total 0.40 mg/dL 0.20-1 .30 Not Available [facility] (Lab) [address] [place], [address], 09/17/2024 13:26:17 09/18/19 25 09/17/2024 COMPR EHENS ROSAURA METAB OLIC PANEL calcium 9.6 mg/dL 8.4-10 .2 Not Available [facility] (Lab) [address] [place], [address], 09/17/2024 13:26:17 09/18/19 25 09/17/2024 COMPR EHENS ROSAURA METAB OLIC PANEL total protein 7.2 g/dL 6.3-8. 2 Not Available [facility] (Lab) [address] [place], [address], 09/17/2024 13:26:17 09/18/19 25 09/17/2024 COMPR EHENS ROSAURA METAB OLIC PANEL albumin 5.0 g/dL 3.0-4. 4 high Not Available [facility] (Lab) [address] [place], [address], 09/17/2024 13:26:17 09/18/19 25 09/17/2024 COMPR EHENS ROSAURA METAB OLIC PANEL globulin 2.2 g/dL 2.6-4. 2 low Not Available [facility] (Lab) [address] [place], [address], 09/17/2024 13:26:17 09/18/19 25 09/17/2024 COMPR EHENS ROSAURA METAB OLIC PANEL A/G ratio 2.3 ratio 1.0-2. 0 high Not Available [facility] (Lab) [address] [place], [address], 09/17/2024 13:26:17 09/18/19 25 09/17/2024 T4 FREE free T4 0.83 NG/dL 0.78-2 .19 Not Available [facility] (Lab) [address] [place], [address], 09/17/2024 13:27:17 09/18/19 25 09/17/2024 TSH thyroid-stim ulating hormone 0.054 uIU/m L 0.465- 4.680 low Not Available [facility] (Lab) [address] [place], [address], 09/17/2024 13:40:26 09/18/19 25 09/17/2024 HEMOG LOBIN A1C HA1C 6.6 % 4.0-6. 0 high Diabe damon Scree emiliano Crite yen: <5.7% Consi stent with absen ce of diabe damon 5.7-6 .4% Consi stent with incre ased risk for diabe damon (pred iabet es) >OR=6 .5% Consi stent with diabe damon REFER ENCE: Diabe damon Care 2016, 39(Zamora ppl.1 ):s13 -s22 Not Available [facility] (Lab) [address] [place], [address], 09/17/2024 15:12:00 10/05/19 24 10/05/2023 XR, chest , 2 view [facility] [address] [place] [address] Patien t Name: ROWDY AVILES Access ion #: [id number] Sex: M : 1959 8 Dictat ed By: Hernandez Ornelas ms Attend ing Physic steffi: JARVIS BECERRIL CE Orderi Physic steffi: JARVIS BECERRIL CE Exam Date: 2023 07:41 AM Exam Name: XR CHEST 2V Admitt ing Diagno sis(es ): XR CHEST 2V CLINIC AL HISTOR Y: Dyspne a COMPAR JABARI: 2020 TECHNI QUE: Fronta l and latera l view of the chest was obtain ed FINDIN GS: Lines and Tubes: None Lungs: The lung bases are exclud ed from the field of view, preclu ding adequa te evalua tion on the fronta l radiog raph. No focal consol idatio n. Pleura : No effusi on. No pneumo thorax . Cardio medias tinal contou rs: Unrema rkable , as visual ized. Bones: No acute osseou s abnorm ality. IMPRES BARB: 1. Limite d study. No acute cardio pulmon laverne diseas e. Electr onical ly Signed by: Hernandez Ornelas ms at 2023 08:34: 45 AM Page [address] ([facility]) [address] [place], [address], 10/05/2023 13:49:15 10/26/19 24 10/26/2023 US, echoc ardio gram No observ ation record ed. [address] [facility] [address], [place], [address], 10/27/2023 13:03:07 11/01/19 24 11/01/2023 pharm acolo gic nucle ar stres s test No observ ation record ed. [address] [facility] [address], [place], [address], 11/02/2023 06:31:49 11/28/19 24 10/04/2023 elect rocar diogr am No observ ation record ed. [email or web address] [id number] Not Available 2023 15:29:52 03/07/20 24 02/27/2024 CT, coron laverne calci um score No observ ation record ed. [address] [facility] [address], [place], [address], 03/07/2024 17:14:58 05/14/19 25 XR, lumba r spine No observ ation record ed. [email or web address] Not Available 2024 21:14:55 05/14/19 25 MRI, lumba r spine , w/o contr ast No observ ation record ed. [email or web address] Not Available 2024 21:16:44 05/15/19 25 MRI, lumba r plexu s, w/ contr ast No observ ation record ed. [email or web address] Not Available 2024 07:52:08 Result Notes Documentation Provider Name and Address Organization Details Recorded Time Xr, Chest, 2 View : [facility] [address] [place], [place] [id number] Patient Name: HERNANDEZ AVILES Sex: M : 1960 Dictated By: Rehana Alarcon Attending Physician: CRUZ BECERRIL Ordering Physician: CRUZ BECERRIL Exam Date: 10/05/2023 07:41 AM Exam Name: XR CHEST 2V Admitting Diagnosis(es): XR CHEST 2V CLINICAL HISTORY: Dyspnea COMPARISON: 06/24/2020 TECHNIQUE: Frontal and lateral view of the chest was obtained FINDINGS: Lines and Tubes: None Lungs: The lung bases are excluded from the field of view, precluding adequate evaluation on the frontal radiograph. No focal consolidation. Pleura: No effusion. No pneumothorax. Cardiomediastinal contours: Unremarkable, as visualized. Bones: No acute osseous abnormality. IMPRESSION: 1. Limited study. No acute cardiopulmonary disease. Page 1 Cruz Becerril MD [address], [address], [facility] [employer] [facility] 10/05/2023 13:49:15 Problems Name Problem SNOMED Code Status Onset Date Resolution Date Notes Provider Name and Address Organization Details Recorded Time Chronic obstructiv e pulmonary disease 46199487 Active 2018 Not Available [facility] 3 21:12:46 Pain of left elbow joint 9268575776527 9104 Active 2021 Not Available [facility] 3 21:12:46 Anxiety disorder 605919551 Active 2018 Not Available [facility] 3 21:12:46 Finding of body mass index 057554631 Active 2021 Not Available [facility] 3 21:12:46 Type 2 diabetes mellitus without complicati on 717352130 Active 2019 Not Available [facility] 3 21:12:46 Bursitis of olecranon of left elbow 3114880013616 01 Active 2021 Not Available [facility] 3 21:12:46 Osteoarthr itis 792767281 Active 2018 Not Available [facility] 3 21:12:46 Screening for malignant neoplasm of prostate Active 2021 Not Available [facility] 3 21:12:46 Hyperlipid emia 29826563 Active 2018 Not Available [facility] 3 21:12:46 Rheumatoid arthritis 85581767 Active 2019 Not Available [facility] 3 21:12:46 Obstructiv e sleep apnea syndrome 20920842 Active 2018 Not Available [facility] 3 21:12:46 Pilonidal abscess 569173016 Active 2022 Not Available [facility] 3 21:12:47 Acute bronchitis 41918223 Active 2022 Cruz Becerril MD [address], [place], [address] , [facility] 3 11:44:25 Disorder of prostate 33072506 Active 2022 Cruz Becerril MD [address], [place], [address] , [facility] 3 11:25:06 Dyspnea on exertion 73516237 Active 2023 Cruz Becerril MD [address], [place], [address] , [facility] 4 17:11:10 Obese class II 8116695861856 05 Active 2023 Cruz Becerril MD [address], [place], [address] , [facility] [employer] [facility] 4 17:13:38 Dyspnea 289341806 Active 2023 Liliane salazar, [facility] [employer] [facility] 4 17:27:25 Left side sciatica 1048049576295 04 Active 2023 Cruz Becerril MD [address], [place], [address] , [facility] [employer] [facility] [employer] 4 11:52:26 Lumbar radiculopa thy 935767796 Active 2023 Cruz Becerril MD [address], [place], [address] , [facility] [employer] [facility] [employer] 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 4 11:45:25 Testicular mass 61799000 Active 2024 Cruz Becerril MD [address], [place], [address] , [facility] [employer] [facility] [employer] 5 17:46:49 COVID-19 004433554 Active 2024 Cruz Becerril MD [address], [place], [address] , [facility] [employer] [facility] [employer] 5 14:25:41 Type 2 diabetes mellitus 95457937 Active 2024 Cruz Becerril MD [address], [place], [address] , [facility] [employer] [facility] [employer] 5 10:28:34 Essential hypertensi on 62083687 Active 2024 Cruz Becerril MD [address], [place], [address] , [facility] [employer] [facility] [employer] 5 10:30:14 Problem Notes None recorded. Procedures Surgical History Date Name Laterality Status Provider Name and Address Organization Details Recorded Time Medicare Wellness CPT Code, Initial completed Haven Barnett RN [facility] [employer] [facility] 05/14/2024 17:35:49 Imaging Results None recorded. Procedure Notes None recorded. Medical Equipment None Reported. Medications Name Sig Start Date Stop Date Status Note LastModified by Organization Details LastModified Time cyclobenzap rine 10 mg tablet TAKE 1 TABLET BY MOUTH TWICE A DAY NEEDED FOR MUSCLE SPASMS 05/14 completed Not Available Not Available Not Available latanoprost 0.005 % eye drops INSTILL 1 DROP INTO BOTH EYES AT BEDTIME active Not Available Not Available No t Available metformin 500 mg tablet TAKE 1 TABLET BY MOUTH TWICE DAILY active Not Available Not Available No t Available prednisone 10 mg tablet PLEASE SEE ATTACHED FOR DETAILED DIRECTION S 04/21 completed Not Available Not Available Not Available sulfasalazi ne 500 mg tablet Take 2 tablets twice a day by oral route. 2021 active Not Available Not Available Not Avai lable azithromyci n 250 mg tablet TAKE 2 TABLETS BY MOUTH TODAY, THEN TAKE 1 TABLET DAILY FOR 4 DAYS DIRECTED 04/21 completed Not Available Not Available Not Available benzonatate 200 mg capsule TAKE 1 CAPSULE BY MOUTH THREE TIMES A DAY 10/21 completed Not Available Not Available Not Available hydrocodone 5 mg-acetamin ophen 325 mg tablet TAKE 1 TABLET BY MOUTH EVERY 4 TO 6 HOURS NEEDED FOR PAIN 07/20 completed Not Available Not Available Not Available meloxicam 15 mg tablet 01/10 completed Not Available Not Available Not Available prednisone 20 mg tablet 20 MG ORALLY TWICE A DAY FOR 5 DAYS 04/21 completed Not Available Not Available Not Available prednisone 5 mg tablet 02/12 completed Not Available Not Available Not Available diphenoxyla te-atropine 2.5 mg-0.025 mg tablet TAKE 1 TABLET BY MOUTH 4 TIMES DAILY NEEDED 07/20 completed Not Available Not Available Not Available leflunomide 10 mg tablet Take 1 tablet every day by oral route. 05/14 completed Not Available Not Available Not Available prochlorper azine maleate 10 mg tablet TAKE 1 TABLET BY MOUTH THREE TIMES DAILY NEEDED FOR NAUSEA 07/20 completed Not Available Not Available Not Available sulfamethox azole 800 mg-trimetho prim 160 mg tablet TAKE 1 TABLET BY MOUTH EVERY 12 HOURS 10/21 completed Not Available Not Available Not Available leflunomide 20 mg tablet TAKE 1 TABLET DAILY active Not Available Not Available No t Available tramadol 50 mg tablet TAKE 1 TABLET BY MOUTH THREE TIMES A DAY *7 DAYS OR PRIOR AUTH* active Not Available Not Available No t Available cefadroxil 500 mg capsule 01/10 completed Not Available Not Available Not Available oxycodone-a cetaminophe n 5 mg-325 mg tablet 01/10 completed Not Available Not Available Not Available acitretin 25 mg capsule TAKE 1 CAPSULE BY MOUTH ON MONDAY, MONDAY AND 02/24 completed Not Available Not Available Not Available Kenalog 10 mg/mL suspension for injection In office injection administe red by the provider 03/17 completed [facility]: [phone] [phone] Not Available Not Available Not Available dexamethaso ne 2 mg tablet One tablet three times daily for three days then one tablet twice daily for three days then one tablet daily for three days active Not Available Not Available No t Available hydrocodone 7.5 mg-acetamin ophen 325 mg tablet TAKE 1 TABLET BY MOUTH EVERY 6 HOURS active Not Available Not Available No t Available cephalexin 500 mg capsule TAKE 1 CAPSULE BY MOUTH EVERY 8 HOURS FOR 10 DAYS FOR INFECTIOU S PROCESS 07/20 completed Not Available Not Available Not Available tacrolimus 0.1 % topical ointment 02/24 completed Not Available Not Available Not Available metformin 1,000 mg tablet TAKE 1 TABLET TWICE A DAY 2024 active Not Available Not Available Not Avai lable gabapentin 300 mg capsule PLEASE SEE ATTACHED FOR DETAILED DIRECTION S 05/14 completed Not Available Not Available Not Available diclofenac sodium 75 mg tablet,sunita yed release TAKE 1 TABLET TWICE A DAY active Not Available Not Available No t Available clobetasol 0.05 % topical ointment RUB IN WELL TWICE DAILY TOPICALLY TO INVOLVED AREA OF BODY UNTIL CLEAR 02/24 completed Not Available Not Available Not Available hydroxychlo roquine 200 mg tablet TAKE 2 TABLETS DAILY active Not Available Not Available No t Available ibuprofen 600 mg tablet TAKE 1 TABLET BY MOUTH EVERY 6 HOURS NEEDED FOR PAIN 05/14 completed Not Available Not Available Not Available methylpredn isolone 4 mg tablets in a dose pack FOLLOW PACKAGE DIRECTION S 05/14 completed Not Available Not Available Not Available albuterol sulfate HFA 90 mcg/actuati on aerosol inhaler Inhale 2 puffs every 4 hours by inhalatio n route. active Not Available Not Available No t Available indomethaci n ER 75 mg capsule,ext ended release Take 1 capsule twice a day by oral route. 02/03 completed Not Available Not Available Not Available fluticasone propionate 50 mcg/actuati on nasal spray,suspe nsion 04/21 completed Not Available Not Available Not Available Xanax 1 mg tablet Take 1 tablet twice a day by oral route. 2020 active Not Available Not Available Not Avai lable brimonidine 0.15 % eye drops 02/24 completed Not Available Not Available Not Available naproxen 500 mg tablet 01/10 completed Not Available Not Available Not Available amoxicillin 875 mg-potassiu m clavulanate 125 mg tablet TAKE 1 TABLET BY MOUTH EVERY 12 HOURS UNTIL ALL TAKEN 07/20 completed Not Available Not Available Not Available dorzolamide 2 % eye drops INSTILL 1 DROP INTO BOTH EYES TWICE DAILY active Not Available Not Available No t Available valsartan 160 mg tablet TAKE 1 TABLET ONCE DAILY active Not Available Not Available No t Available rosuvastati n 20 mg tablet TAKE 1 TABLET BY MOUTH DAILY 06/30 completed Not Available Not Available Not Available rosuvastati n 40 mg tablet TAKE 1 TABLET DAILY active Not Available Not Available No t Available ropivacaine (PF) 5 mg/mL (0.5 %) injection solution In office injection administe red by the provider 03/17 completed Not Available Not Available Not Available Vascepa 1 gram capsule TAKE 2 CAPSULES TWICE DAILY active Not Available Not Available No t Available Pennsaid 20 mg/gram/act uation (2 %) topical soln in metered-dos e pump apply 2 pumps topically to affected wrist twice a day 01/10 completed Not Available Not Available Not Available Otezla 30 mg tablet Take 1 tablet twice a day by oral route. 10/21 completed Not Available Not Available Not Available Spiriva Respimat 2.5 mcg/actuati on solution for inhalation 07/20 completed Not Available Not Available Not Available Spiriva Respimat 1.25 mcg/actuati on solution for inhalation 01/10 completed Not Available Not Available Not Available Narcan 4 mg/actuatio n nasal spray 01/10 completed Not Available Not Available Not Available Trelegy Ellipta 100 mcg-62.5 mcg-25 mcg powder for inhalation Inhale 1 puff every day by inhalatio n route. 11/25 completed Not Available Not Available Not Available roflumilast 250 mcg tablet 05/14 completed Not Available Not Available Not Available Breztri Aerosphere 160 mcg-9mcg-4. 8mcg/actuat ion HFA aerosol inhaler 05/14 completed Not Available Not Available Not Available Paxlovid 300 mg (150 mg x 2)-100 mg tablets in a dose pack TAKE 2 NIRMATREL VIR TABLETS AND 1 RITONAVIR TABLET TWICE DAILY FOR 5 DAYS active Not Available Not Available No t Available Ozempic 2 mg/dose (8 mg/3 mL) subcutaneou s pen injector INJECT 2 MG BY SUBCUTANE OUS ROUTE ONCE WEEKLY ON THE SAME DAY OF EACHWEEK 05/14 completed Not Available Not Available Not Available Ozempic 0.25 mg or 0.5 mg (2 mg/3 mL) subcutaneou s pen injector INJECT 0.25MG SUBCUTANE OUSLY ONCE WEEKLY (EVERY 7 DAYS) FOR 28 DAYS, THEN INJECT 0.5MG ONCE WEEKLY active Not Available Not Available No t Available Breyna 160 mcg-4.5 mcg/actuati on HFA aerosol inhaler Inhale 2 puffs twice a day by inhalatio n route. 05/14 completed Not Available Not Available Not Available Vitals Date Recorded Body height Body mass index (BMI) Body weight Heart rate Body temperature Oxygen saturation Oxygen saturation in Arterial blood by Pulse oximetry Systolic blood pressure Diastolic blood pressure Provider Name and Address Organization Details Last Updated DateTime 5 177.8 cm 32.6 kg/m2 728607. 47 g 77 /min 97 [degF] 93 % 93 % 128 mm[Hg] 70 mm[Hg] Steph AIKEN - Analy [place] [employer] [facility] 5 17:29:10 Date Recorded Body height Body mass index (BMI) Body weight Heart rate Body temperature Oxygen saturation Oxygen saturation in Arterial blood by Pulse oximetry Systolic blood pressure Diastolic blood pressure Provider Name and Address Organization Details Last Updated DateTime 5 177.8 cm 33.3 kg/m2 326355. 43 g 75 /min 97 [degF] 95 % 95 % 140 mm[Hg] 70 mm[Hg] Steph Ladd [employer] [facility] 5 10:24:41 Date Recorded Body height Body mass index (BMI) Body weight Heart rate Body temperature Oxygen saturation Oxygen saturation in Arterial blood by Pulse oximetry Systolic blood pressure Diastolic blood pressure Provider Name and Address Organization Details Last Updated DateTime 4 177.8 cm 35.9 kg/m2 857602. 09 g 88 /min 97.6 [degF] 93 % 93 % 142 mm[Hg] 80 mm[Hg] Nabila Watson [facility] [employer] [facility] 4 17:02:51 Date Recorded Body height Body mass index (BMI) Body weight Heart rate Body temperature Oxygen saturation Oxygen saturation in Arterial blood by Pulse oximetry Systolic blood pressure Diastolic blood pressure Provider Name and Address Organization Details Last Updated DateTime 3 177.8 cm 33.6 kg/m2 467498. 61 g 71 /min 97 [degF] 95 % 95 % 118 mm[Hg] 74 mm[Hg] Steph Ladd [employer] [facility] [employer] [facility] 3 11:04:45 Date Recorded Body height Body weight Heart rate Body temperature Oxygen saturation Oxygen saturation in Arterial blood by Pulse oximetry Systolic blood pressure Diastolic blood pressure Provider Name and Address Organization Details Last Updated DateTime 4 177.8 cm 748358. 84 g 76 /min 97 [degF] 95 % 95 % 132 mm[Hg] 70 mm[Hg] Nabila Watson [facility] [employer] [facility] 4 11:19:16 Social History Question Answer Notes LastModified by Organizat ion Details LastModified Time Tobacco Smoking Status Never Smoker Not Available [employer] 07/06/2022 21:12:14 Do You Have An Advance Directive? Yes [email or web address] Information not available 05/14/2024 Are You Blind Or Do You Have Difficulty Seeing? No [email or web address] Information not available 05/14/2024 In The 14 Days Before Symptom Onset, Have You Had Close Contact With A Laboratory-confir med COVID-19 While That Case Was Ill? No [id number] Information not available 07/06/2022 In The 14 Days Before Symptom Onset, Have You Had Close Contact With A Person Who Is Under Investigation For COVID-19 While That Person Was Ill? No [id number] Information not available 07/06/2022 Are You Deaf Or Do You Have Serious Difficulty Hearing? No [email or web address] Information not available 05/14/2024 What Type Of Diet Are You Following? REGULAR [email or web address] Information not available 05/14/2024 What Is The Fluoride Status Of Your Home? Unknown [email or web address] Information not available 05/14/2024 Do You Use Insect Repellent Routinely? No [email or web address] Information not available 05/14/2024 Where Do You Live? [facility] [email or web address] Information not available 05/14/2024 Are You Able To Care For Yourself? Yes [email or web address] Information not available 05/14/2024 Are You Blind Or Do Yo Have Difficulty Seeing? No [email or web address] Information not available 05/14/2024 Are You Deaf Or Do You Have Serious Difficulty Hearing? No [email or web address] Information not available 05/14/2024 Live Alone Of With Others? With Others [email or web address] Information not available 05/14/2024 Do You Have A Medical Power Of Ebd Special Education Teacher? Yes [email or web address] Information not available 05/14/2024 What Was The Date Of Your Most Recent Tobacco Screening? 05/14/2024 [email or web address] Information not available 05/14/2024 Do You Have Any Pets? Yes [email or web address] Information not available 05/14/2024 What Is Your Relationship Status? [email or web address] Information not available 05/14/2024 Do You Use Your Seat Belt Or Car Seat Routinely? Yes Information not available 05/14/2024 Do You Have Smoke And Carbon Monoxide Detectors In Your Home? Yes [email or web address] Information not available 05/14/2024 Do You Use Sunscreen Routinely? Yes [email or web address] Information not available 05/14/2024 Have You Recently Traveled Abroad? No [id number] Information not available 07/06/2022 Do You Have Difficulty Walking Or Climbing Stairs? No [email or web address] Information not available 05/14/2024 Sex: Unknown Functional Status Question Answer Note LastModified by Organizat ion Details LastModified Time What is your level of alcohol consumption? None [email or web address] Information not available 05/14/2024 Do you have transportation difficulties? No [email or web address] Information not available 05/14/2024 Are you able to walk? YESWOREST [email or web address] Information not available 05/14/2024 Do you have difficulty doing errands alone? No [email or web address] Information not available 05/14/2024 Are you able to care for yourself? Yes [email or web address] Information n ot available 05/14/2024 Do you have difficulty dressing or bathing? No [email or web address] Information not available 05/14/2024 What is your exercise level? Occasional has bad back [email or web address] Information not available 05/14/2024 Mental Status Question Answer Note LastModified by Organization D etails LastModified Time Do you have difficulty concentrating, remembering or making decisions? No [email or web address] Information no t available 05/14/2024 Family History Relationship Description Onset Age of this Age Resolved Age Notes LastModified by Organization Details LastModified Time Mother Heart disease [id number] Not available 07/06/2022 21:12:16 Mother Hypertensive disorder [id number] Not available 07/06/2022 21:12:16 Mother Diabetes mellitus [id number] Not available 07/06/2022 21:12:16 Father Family history of stroke [id number] Not available 07/06/2022 21:12:16 Notes:Mother 66 from [place] F - HTN - DM Father 62 from CVA and HTN No brothers 7 sisters 2 living one does have some COPD. One of CAD and the other murdered. Has one in terminal stages of congestive heart failure and one with stage IV cancer of the colon Medical History Condition Response NERVE DISEASE N BLINDNESS N RHEUMATIC FEVER N KIDNEY STONES N BLADDER PROBLEMS N OTHER # 1 N POLIO N LUNG DISEASE/DISORDER N COPD Y RADIATION / CHEMOTHERAPY N Other # 2 N BLOOD DISEASES N SURGERY N EAR OR HEARING PROBLEMS N MUMPS N BOWEL PROBLEMS N DEPRESSION (INCLUDING POST ) N STROKE/TIA N ULCERS N BENIGN PROSTATIC HYPERPLASIA N MEASLES N MYOCARDIAL INFARCTION N OBESITY N GERD/NAUSEA N ANEURYSM N URINARY/BLADDER/KIDNEY PROBLEMS N CORONARY ARTERY DISEASE (CAD) N INPATIENT PSYCH CARE N ADDICTION CONCERNS N ENDOMETRIOSIS N Impotence N USE OF BLOOD THINNERS N SKIN PROBLEMS N GASTROINTESTINAL DISORDER N PERIPHERAL VASCULAR DISEASE N MUSCLE,JOINT OR BONE PROBLEMS N GASTROINTESTINAL BLEEDING N BLOOD CLOTS N ASTHMA N CATARACTS N ERECTILE DYSFUNCTION N VARICOSITIES N GI PROBLEMS N Low Testosterone N INFERTILITY N AIDS/HIV N LIVER DISEASE N MALE HYPOGONADISM N HYPERTENSION N Deficiency N ANXIETY DISORDER Y BLOOD TRANSFUSION N ANEMIA/BLOOD DISORDER N CHRONIC EAR INFECTIONS N BRONCHITIS N TUBERCULOSIS N GLAUCOMA N FOOT PROBLEM N DIVERTICULITIS N SLEEP APNEA Y CHICKENPOX N INFECTIOUS DISEASE N HEART ARRHYTHMIA N PROSTATE N INSOMNIA N HIGH CHOLESTEROL / HYPERLIPIDEMIA Y HYPERTHYROIDISM N EYE PROBLEMS N NEUROLOGICAL PROBLEMS N EDEMA N CHRONIC PAIN SYNDROME N HYPOTHYROIDISM N CAROTID BLOCKAGE N CONSTIPATION N BACK / NECK PROBLEMS N HAVE YOU BEEN HOSPITALIZED OR SEEN IN [facility] IN THE PAST YEAR ? N ATHEROSCLEROSIS N BREAST PROBLEMS N DIALYSIS N ECZEMA N OSTEOPOROSIS N ARTHRITIS Y NO SIGNIFICANT PAST MEDICAL HISTORY N APPENDICITIS N DIABETES, TYPE Y BAD TEETH N ENT N HEARTBURN / REFLUX N AUTISM SPECTRUM DISORDER (ASD) N HEPATITIS / LIVER DISEASE N PULMONARY DISEASE N GOUT N SLEEP DISORDER N ALZHEIMER'S DISEASE N Brain Problems N HERPES N DEMENTIA N HEADACHES/MIGRAINES N SEIZURES/EPILEPSY N VASCULAR DISEASE N PACEMAKER N Blood Disorder N DIZZINESS N HEART DISEASE/HEART PROBLEMS N KIDNEY DISEASE N MULTIPLE SCLEROSIS N CARDIAC ARRHYTHMIA N CANCER: SPECIFY N ANESTHESIA COMPLICATIONS N ATRIAL FIBRILLATION N Gall Stones N PULMONARY EMBOLISM N AUTOIMMUNE DISEASE N Immunizations Vaccine Type Date Status Note Provider Nam e and Address Organization Details Recorded Time influenza, unspecified formulation 2 completed Not Available [facility] 07/06/2022 21:13:38 SARS-COV-2 (COVID-19) vaccine, UNSPECIFIED 1 completed Not Available [facility] 07/06/2022 21:13:38 SARS-COV-2 (COVID-19) vaccine, UNSPECIFIED 1 completed Not Available [facility] 07/06/2022 21:13:38 Influenza, split virus, quadrivalent, PF 1 completed Not Available [facility] 07/06/2022 21:13:38 Pneumococcal conjugate PCV 13 1 completed Not Available [facility] 07/06/2022 21:13:38 Respiratory syncytial virus (RSV) vaccine, unspecified 3 completed Steph Slecka null, [facility] 04/21/2023 11:05:47 Influenza, split virus, quadrivalent, PF 3 completed Steph Slecka null, [facility] 03/02/2023 18:11:28 Pneumococcal conjugate PCV20, polysaccharide [id number] conjugate, adjuvant, PF 5 completed Steph Slecka null, [facility] 05/24/2024 16:19:20 Past Encounters Encounter ID Performer Location Encounter Start Date Encounter Closed Date Diagnosis/Indication Diagnosis SNOMED-CT Code Diagnosis ICD10 Code Diagnosis Note [id number] Cruz Becerril MD [facility] Internal Med [facility] [address] [address] 07/20/2020 00:00:00 07/20/2020 15:07:18 [id number] Cruz Becerril MD [facility] Internal Med [facility] [address] [address] 08/17/2020 00:00:00 08/17/2020 10:46:51 [id number] Cruz Becerril MD [facility] Internal Med [place] [address] [place] [address] 10/13/2020 00:00:00 10/13/2020 10:37:18 [id number] Cruz Becerril MD [facility] Internal Med [place] [address] [place] [address] [place] [address] 02/12/2021 00:00:00 02/12/2021 11:36:59 [id number] Cruz Becerril MD [facility] Internal Med [place] [address] [place] [address] [place] [address] 06/18/2021 00:00:00 06/18/2021 11:26:14 [id number] Cruz Becerril MD [facility] Internal Med [place] [address] [place] [address] 10/22/2021 00:00:00 10/22/2021 10:49:11 [id number] Martin Otto MD [facility] [address] [place] [address] 02/24/2022 00:00:00 02/24/2022 10:56:01 [id number] Martin Otto MD [facility] [address] [place] [address] 03/17/2022 00:00:00 03/17/2022 11:25:16 [id number] Cruz Becerril MD [facility] Internal Med [place] [address] [facility] [place] [address] 04/22/2022 00:00:00 04/22/2022 11:13:13 [id number] Cruz Becerril MD [facility] Internal Med [place] [address] [facility] [address] [place] [address] 10/21/2022 11:03:45 10/21/2022 11:31:09 Chronic obstructive pulmonary disease 40714172 J44.9 Obstructiv e sleep apnea syndrome [id number] G47.33 Type 2 josette betes mellitus without complication [id number] E11.9 Rheumatoid arthritis 698 40782 M06.9 Hyperlipidemia 89282875 E78.5 [id number] Cruz Becerril MD [facility] Internal Med [place] [address] [address] 04/21/2023 10:43:46 04/21/2023 11:32:27 Adult health examination [id number] Z00.00 Depression screening 171 857476 Z13.31 Chronic ob structive pulmonary disease 50176611 J44.9 Hyperlipidemia 05250254 E78.5 Type 2 josette betes mellitus without complication 637021562 E11.9 Rheumatoid arthritis 698 62460 M06.9 Obstructiv e sleep apnea syndrome 00623098 G47.33 Disorder of prostate 302 63694 N42.9 [id number] Cruz Becerril MD [facility] Internal Med [place] [address] [address] 10/04/2023 16:53:04 10/04/2023 17:38:37 Dyspnea on exertion 75413253 R06.09 Hyperlipidemia 96483476 E78.5 Type 2 josette betes mellitus without complication 299864107 E11.9 Chronic ob structive pulmonary disease 95531304 J44.9 Rheumatoid arthritis 698 71019 M06.9 Obese class II [id number] 1 13617 E66.9 [id number] Cruz Becerril MD [facility] Internal Med [place] [address] [facility] [address] [place] [address] 05/02/2024 11:12:58 05/02/2024 11:57:13 Hyperlipidemia 98183356 E78.5 Type 2 josette betes mellitus without complication 741305018 E11.9 Chronic ob structive pulmonary disease 54220391 J44.9 Lumbar radiculopathy 128 382499 M54.16 [id number] Cruz Becerril MD [facility] Primary Care [facility] [address] [facility] [address] [place] [address] 05/14/2024 16:48:54 05/14/2024 18:03:27 Adult health examination 677453808 Z00.00 Screening for disorder 224969279 Z13.9 Testicular mass 28522341 N50.89 Type 2 josette betes mellitus without complication 833975214 E11.9 Hyperlipidemia 66606102 E78.5 Left side sciatica 66488 79745 65999 M54.32 Disorder of prostate 302 92577 N42.9 [id number] Cruz Becerril MD [facility] Internal Med [facility] [address] [facility] [address] [place] [address] 09/17/2024 10:22:47 09/17/2024 10:42:42 Chronic obstructive pulmonary disease 47035811 J44.9 Hyperlipidemia 66054241 E78.5 Obese class II 991992584 1 17385 E66.9 Obstructiv e sleep apnea syndrome 78360438 G47.33 Type 2 josette betes mellitus 82720522 E11.9 Essential hypertension 90717710 I10 Health Concerns Section Related Observation LastModified by Organization Detai ls LastModified Time None Recorded Concern Status LastModified by Organization Details LastModified Time None Recorded Advance Directives Directive Y: Payers Insurance Date Sequence Insurance Name Policy Number Policy James Covered Member ID James Member ID Guarantor Name 09/23/2024 1 [employer] (MEDICARE REPLACEMENT/ ADVANTAGE - PPO) [id number] Hernandez Aviles [id number] Hernandez Aviles Notes Date Note Type Note Provider Name and Address Organization Details Recorded Time 04/21/20 23 text/htm l Patient Name: Hernandez AvilesDate Of Service: Monday ( 04.21.2023 ): 1960 Age: 62 There has been approximately a 1 lb weight gain since 10/21/2022. This represents approximately a .4% change in weight. Weight change attributable to lifestyle changes. Vital Signs:Blood Pressure: Sitting Rt. Arm 118/74Pulse: Sitting 71 /min and RegularRespiratory Rate: 12Height 70 in or 1.8 mWeight 234 lb or 106.1 kgBMI 33.6Temperature: 97 F or 36.1 CPulse Oximetry: 95 % at rest on no oxygen Chief Complaint: Addressed in HPI Problems or conditions discussed in the HPI were the only ones reviewed during the encounter.Only social and family history addressed in the HPI were reviewed during this encounter. Attendant(s): NoneConstitutional and Systemic Symptoms:none Medication Reconciliation: from medication list. History of Present Illness In for a well patient check up. Last well patient evaluation was approximately one year. No interval complaints of any new major medical problems. No hx of any chest pain, shortness of breath, nausea, vomiting, diarrhea or constitutional symptoms.PSA orderedColonoscopy or Cologuard: not dueImmunizations Up To Date or refuses to takeNo Significant Change In Family HxFall Risk normalDepression Score: 0Hearing normalVisual normalReviewed Smoking and Drug HistoryReviewed Immunization HistoryInstructed on importance of weight on diabetes, heart and other diseases aggravated by obesity.Instructed on importance of weight on diabetes, heart and other diseases aggravated by obesity. #1. Type II Hypercholesterolaemia: Currently taking medication and tolerating well. No interval complaints of any muscle pain or arthralgia. No significant liver changes with medications. Last lipid panel: fair control. Therapy reviewed regarding treatment of cholesterol management and include diet and Crestor. #2. Type II Diabetes: Has had no polyuria polyphagia or polydipsia. Has had no hypoglycemic like responses. No new history of any numbness, tingling, weakness or visual problems. No nausea, anorexia or other constitutional symptoms. There has been no foot problems or non healing lesions. The last HAIC was DCCT HAIC: 6.2 Calculated MB mg%. Average blood sugars 116-125 mg%. Checking sugars : several times a week Medication Types Include: Metformin Secondary complications include none. Macro-vascular complications include none. Therapy reviewed regarding diabetic management and include Glucophage Compliance: good Renal Protection: not required at this stage Lipid management: statins Urinary microalbumin: A1 . Ophthalmological: has seen eye doctor within the last year #3. COPD: Hx of Emphysema currently stable. There has been no interval change in exercise tolerance an shortness of breath. No change in sputum production, color or consistency. No fever, chills, weight loss or other constitutional symptoms. Gold Scale: Moderate. MRC Scale: vigorous walking. Smoking: not currently smoking Current medications: Proair Hfa and Symbicort Using nebulizer Treatments: No. Uses does not use supplemental oxygen #4. Sleep Apnea: Type: PHILIP Current doing well. No significant daytime somnolence or problems performing daily chores. Using CPAP on nightly basis . Overall has shown considerable improvement.[place] Sleepiness ScaleSitting and ReadinWatching TV: 1Sitting Inactive in a Public Place: 1Passenger in a Car: 1Lying Down in Afternoon: 1Sitting and Talking to someone: 0Sitting quietly after lunch: 0In a car while stopped or drivinScore Interpretation: 0-7 No evidence of abnormally sleepy #5. Hx of rheumatoid arthritis. Currently stable. No additional joint swelling or deformities noted. Synovial thickening as noted below. Physical activity status unchanged. Followed by Salesperson [employer]: Yes. Tolerating medications well. Medications currently consistent of Hydroxychloroquine Sulfate, Leflunomide and Sulfasalazine.Medication List Reviewed and Reconciled 04/21/2023Symbicort 0.16 MG/INH-0.0045 MG/INH (AEROSOL, METERED - INHALATION) 2 Puffs Twice A DayCrestor 40 MG (TABLET - ORAL) Once DailyXanax 1 MG (TABLET - ORAL) One Twice A DayProair Hfa 2 Puffs Four Times A Day As NeededCpap As DirectedGlucophage 1 GM (TABLET - ORAL) BidLeflunomide 10 MG (TABLET - ORAL) One DailySulfasalazine 500 MG (TABLET - ORAL) Two BidHydroxychloroquine Sulfate 200 MG (TABLET - ORAL) Two DailyVaccination and Jbbfpgtskbxw0209-60 Aek2447-63 Vitetlnxx6204-94 Covid Atnmfg6914-42 Prevnar 13 GcSurgical HistoryBilateral CTS, Ventral Hernia secodary repair with Mesh, Ventral Hernia Repair with Mesh, VasectomyPreventative Testing Confirmed by Our Ywmmmfe0602/14/2023 LDCT / ALBUMIN 4.7 G/DL N010/25/2022 MICRO ALBUMIN 0.3 MG/DL N010/25/2022 HAIC 6.2 % OF TOTAL HGB H006/21/2021 PSA 0.24 NG/ML N006/11/2019 COLONOSCOPY (5 YEARS) 06/11/2024Social HistoryFormer smoker quit approximately 2010. 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 One of CAD and the other murdered. Has one in terminal stages of congestive heart failure and one with stage IV cancer of the colon Cruz Becerril MD [address] [facility], [facility] [address], [place], [address], [facility] 04/21/2023 11:25:46 10/04/19 24 text/htm l Patient Name: Hernandez Thompson Of Service: Monday ( 10.04.2023 ): 1960 Age: 63 There has been approximately a 16 lb weight gain since 04/21/2023. This represents approximately a 6.8% change in weight. Weight change attributable to lifestyle changes. Vital Signs:Blood Pressure: Sitting Rt. Arm 142/80Pulse: Sitting 88 /min and RegularRespiratory Rate: 12Height 70 in or 1.8 mWeight 250 lb or 113.4 kgBMI 35.9Temperature: 97.6 F or 36.4 CPulse Oximetry: 93 % at rest on no oxygen Chief Complaint: Addressed in HPI Problems or conditions discussed in the HPI were the only ones reviewed during the encounter.Only social and family history addressed in the HPI were reviewed during this encounter. Attendant(s): WifeConstitutional and Systemic Symptoms:none Medication Reconciliation: from medication list. History of Present Illness #1. Complaining of two month history of increasing dyspnea with exertion. Even has episodes at nighttime where he awakens up with some shortness of breath. Denies any actually edema of the lower extremities. Other signs suggestive of congestive heart failure. Does complain of some atypical chest discomfort associated with the shortness of breath with exertion does reach a severity level that he has to stop walking and rest for several minutes before continuing. Has had a previous low-dose CT scan of the chest for his history of smoking. No evidence any malignancy. On clinical examination the lungs are clear at this time. Concerned about the possibility this could represent some form of crescendo angina or other anginal equivalents. Will need to be set up with cardiology candido.: #2. Type II Hypercholesterolaemia: Currently taking medication and tolerating well. No interval complaints of any muscle pain or arthralgia. No significant liver changes with medications. Last lipid panel: fair control. Therapy reviewed regarding treatment of cholesterol management and include diet and Crestor. #3. Type II Diabetes: Has had no polyuria polyphagia or polydipsia. Has had no hypoglycemic like responses. No new history of any numbness, tingling, weakness or visual problems. No nausea, anorexia or other constitutional symptoms. There has been no foot problems or non healing lesions. The last HAIC was unknown. Average blood sugars unknown. Checking sugars : not at all Medication Types Include: diet and Metformin Secondary complications include none. Macro-vascular complications include none. Therapy reviewed regarding diabetic management and include Glucophage Compliance: fair Renal Protection: not required at this stage Lipid management: statins Urinary microalbumin: A1 . Ophthalmological: has seen eye doctor within the last year #4. Hx of rheumatoid arthritis. Currently stable. No additional joint swelling or deformities noted. Synovial thickening as noted below. Physical activity status unchanged. Followed by Salesperson [employer]: Yes. Tolerating medications well. Medications currently consistent of Hydroxychloroquine Sulfate, Leflunomide and Sulfasalazine. #5. COPD: Hx of Emphysema currently stable. There has been no interval change in exercise tolerance an shortness of breath. No change in sputum production, color or consistency. No fever, chills, weight loss or other constitutional symptoms. Gold Scale: Mild. MRC Scale: only strenuous activity. Smoking: not currently smoking Current medications: Symbicort Using nebulizer Treatments: No. Uses does not use supplemental oxygen #6. Hx of obesity. Currently Class 2 Obesity BMI 35-39.99. Has tried numerous dietary support and supplements with no benefit. Instructed on the health consequences of the obese status particularly cancer - diabetes and heart disease. Discussed new modalities of weight loss including GLP-1 medications that are used to treat diabetes. Potential candidate for bariatric surgery: No. Wishes to be evaluated by Dietary: No and was offered to be evaluated and instructed by food inspector on weight loss diet. Active Medication ListSymbicort 0.16 MG/INH-0.0045 MG/INH (AEROSOL, METERED - INHALATION) 2 Puffs Twice A DayCrestor 40 MG (TABLET - ORAL) Once DailyXanax 1 MG (TABLET - ORAL) One Twice A DayProair Hfa 2 Puffs Four Times A Day As NeededCpap As DirectedGlucophage 1 GM (TABLET - ORAL) BidLeflunomide 10 MG (TABLET - ORAL) One DailySulfasalazine 500 MG (TABLET - ORAL) Two BidHydroxychloroquine Sulfate 200 MG (TABLET - ORAL) Two Daily Vaccination and Gjtpxwyhwiap8869-98 Ltu3693-05 Klrkzvbmu3645-44 Covid Kryqoa2547-76 Prevnar 13 Gc Surgical Rrgsjqe3438-96 Bilateral [id number] Ventral Hernia secodary repair with [id number] Ventral Hernia Repair with [id number] Vasectomy Preventative Myydhrm2005/04/2023 ALBUMIN 5.0 G/DL 05/04/2023 PSA 0.5 NG/ML05/04/2023 MICRO ALBUMIN 15.2 UG/ML05/04/2023 HAIC 6.7 % H1 LDCT COLONOSCOPY (5 YEARS) 06/11/2024 Social HistoryFormer smoker quit approximately 2010. 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 One of CAD and the other murdered. Has one in terminal stages of congestive heart failure and one with stage IV cancer of the colon Cruz Becerril MD [address] [facility], [place], [address], [place] [facility] 10/04/2023 17:21:45 05/02/20 24 text/htm l Patient Name: Hernandez Thompson Of Service: April ( 05.02.2024 ): 1960 Age: 63 There has been approximately a 19 lb weight loss since 10/04/2023. This represents approximately a 7.6% change in weight. Weight change attributable to lifestyle changes. Vital Signs:Blood Pressure: Sitting Rt. Arm 132/70Pulse: Sitting 76 /min and RegularRespiratory Rate: 16Height 70 in or 1.8 mWeight 231 lb or 104.8 kgBMI 33.1Temperature: 97 F or 36.1 CPulse Oximetry: 95 % at rest on no oxygen Chief Complaint: Addressed in HPI Problems or conditions discussed in the HPI were the only ones reviewed during the encounter.Only social and family history addressed in the HPI were reviewed during this encounter. Attendant(s): NoneConstitutional and Systemic Symptoms:none Medication Reconciliation: from medication list. [id number]: Echocardiogram estimated ejection fraction 65%. Aortic valve leaflets appear structurally normal. Velocities as well as gradient across the aortic valve are normal. Mild aortic valve regurgitation. 11-02-2023: Pharmacological stress test performed demonstrated an ejection fraction estimated at 62%. There were no ST segment or T-wave changes of any myocardial ischemia. The rest and stress images revealed normal perfusion in all myocardial segments. There is no evidence of any myocardial ischemia or previous Myocardial infarctions. History of Present Illness #1. His history of left sacroiliac pain with radiation down the left leg. Did go to the emergency room had an MRI performed which showed disc herniations at L3-L4 consisting of some herniation into the lateral recesses. Had an MRI performed which showed these findings. Does not appear to be surgical in nature. Recommend probable pain management. Will cover with some tramadol in the meantime.: #2. Type II Hypercholesterolaemia: Currently taking medication and tolerating well. No interval complaints of any muscle pain or arthralgia. No significant liver changes with medications. Last lipid panel: fair control. Therapy reviewed regarding treatment of cholesterol management and include diet and Crestor. #3. Type II Diabetes: Has had no polyuria polyphagia or polydipsia. Has had no hypoglycemic like responses. No new history of any numbness, tingling, weakness or visual problems. No nausea, anorexia or other constitutional symptoms. There has been no foot problems or non healing lesions. The last HAIC was No. CGM: > 150 mg%. Average blood sugars not at all. Checking sugars : diet, Metformin and GLP-1. Medication Types Include: none Secondary complications include none. Macro-vascular complications include Glucophage and Ozempic. Therapy reviewed regarding diabetic management and include good Compliance: not required at this stage Renal Protection: statins Lipid management: A1 Urinary microalbumin: has seen eye doctor within the last year . Ophthalmological: Intermediate Control 7.1 - 8.0. Control: Emphysema #4. COPD: Hx of no interval change currently stable. There has been Moderate in exercise tolerance an shortness of breath. No change in sputum production, color or consistency. No fever, chills, weight loss or other constitutional symptoms. Gold Scale: normal walking. MRC Scale: not currently smoking. Smoking: Proair Hfa and Symbicort Current medications: No Using nebulizer Treatments: does not use supplemental oxygen. Uses does not use supplemental oxygen Active Medication ListAspirin 81 MG TABLET One DailySymbicort 0.16 MG/INH-0.0045 MG/INH (AEROSOL, METERED - INHALATION) 2 Puffs Twice A DayCrestor 40 MG (TABLET - ORAL) Once DailyXanax 1 MG (TABLET - ORAL) One Twice A DayProair Hfa 2 Puffs Four Times A Day As NeededCpap As DirectedGlucophage 1 GM (TABLET - ORAL) BidOzempic 2MG/3ML 0.25 Weekly For 28 Days, Then 0.5 Once WeeklyLeflunomide 10 MG (TABLET - ORAL) One DailySulfasalazine 500 MG (TABLET - ORAL) Two BidHydroxychloroquine Sulfate 200 MG (TABLET - ORAL) Two Daily Vaccination and Immunization(X) 2023-02 INFLUENZA( ) 2020-05 PREVNAR 13 GC(X) 2020-09 COVID PFIZER( ) 2023-04 RSV Surgical [id number] Bilateral [id number] Ventral Hernia secodary repair with [id number] Ventral Hernia Repair with Rnsl6906-87 Vasectomy Preventative Testing( ) 10/05/2023 Albumin 4.8 G/DL H( ) 10/05/2023 HAIC 7.3( ) 10/05/2023 Micro Albumin 12.8 MG/L( ) 05/04/2023 PSA 0.5 NG/ML 05/04/2025(X) 02/14/2023 LDCT 02/15/2024( ) 06/11/2019 Colonoscopy (5 Years) 06/11/2024 Social HistoryFormer smoker quit approximately 2010. 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 One of CAD and the other murdered. Has one in terminal stages of congestive heart failure and one with stage IV cancer of the colon Active Medication ListAspirin 81 MG TABLET One DailySymbicort 0.16 MG/INH-0.0045 MG/INH (AEROSOL, METERED - INHALATION) 2 Puffs Twice A DayCrestor 40 MG (TABLET - ORAL) Once DailyXanax 1 MG (TABLET - ORAL) One Twice A DayProair Hfa 2 Puffs Four Times A Day As NeededCpap As DirectedGlucophage 1 GM (TABLET - ORAL) BidOzempic 2MG/3ML 0.25 Weekly For 28 Days, Then 0.5 Once WeeklyLeflunomide 10 MG (TABLET - ORAL) One DailySulfasalazine 500 MG (TABLET - ORAL) Two BidHydroxychloroquine Sulfate 200 MG (TABLET - ORAL) Two Daily Vaccination and Immunization(X) 2022- INFLUENZA( ) 2020-05 PREVNAR 13 GC(X) 2020- COVID PFIZER( ) 2023-04 RSV Surgical Irriado6615-03 Bilateral [id number] Ventral Hernia secodary repair with [id number] Ventral Hernia Repair with [id number] Vasectomy Preventative Testing( ) 10/05/2023 Albumin 4.8 G/DL H( ) 10/05/2023 HAIC 7.3( ) 10/05/2023 Micro Albumin 12.8 MG/L( ) 05/04/2023 PSA 0.5 NG/ML 05/04/2025(X) 02/14/2023 LDCT 02/15/2024( ) 06/11/2019 Colonoscopy (5 Years) 06/11/2024 Social HistoryFormer smoker quit approximately 2010. 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 One of CAD and the other murdered. Has one in terminal stages of congestive heart failure and one with stage IV cancer of the colon TEST RESULT RANGE UNITSHEMOGLOBIN A1C Date: 10/05/2023HA1C 7.3 4.0-6.0 %LIPID PANEL Date: 10/05/2023HOLESTEROL 126 140-199 MG/DLTRIGLYCERIDES 164 0-150 MG/DLHDL CHOLESTEROL 43 40- MG/DLLDL CHOLESTEROL, CALCULATED 50 0-130 MG/DLLIPOPROTEIN (A) Date: 10/05/2023OMPREHENSIVE METABOLIC PANEL Date: 10/05/2023SODIUM 143 137-145 MMOL/LPOTASSIUM 4.3 3.5-5.1 MMOL/LGLUCOSE 124 70-99 MG/DLBUN 16 8-19 MG/DLCREATININE 0.81 0.66-1.25 MG/DLGFR >60ALKALINE PHOSPHATASE 70 38-126 U/LALANINE AMINOTRANSFERASE 39 0-50 U/LASPARTATE AMINOTRANSFERASE 32 15-46 U/LBILIRUBIN, TOTAL 0.60 0.20-1.30 MG/DLCBC/COMPLETE BLD COUNT W/DIFF Date: 10/05/2023WHITE BLOOD CELLS 6.0 4.2-10.8 X10'3/ULHEMOGLOBIN 13.7 13.2-17.0 G/DLHEMATOCRIT 42.1 39.3-50.0 %PLATELETS 240 150-400 X10'3/UL Cruz Becerril MD [address] [facility], [facility] [address], [place], [address], [facility] [employer] [facility] Attributor 05/02/2024 11:55:33 05/14/19 25 text/htm l Patient Name: Hernandez AvilesDirkte Of Service: Monday ( 05.14.2024 ): 1960 Age: 64 There has been approximately a 4 lb weight loss since 05/02/2024. This represents approximately a 1.7% change in weight. Weight change attributable to lifestyle changes. Vital Signs:Blood Pressure: Sitting Rt. Arm 128/70Pulse: Sitting 77 /min and RegularRespiratory Rate: 16Height 70 in or 1.8 mWeight 227 lb or 103.0 kgBMI 32.6Temperature: 97 F or 36.1 CPulse Oximetry: 93 % at rest on no oxygen Chief Complaint: Addressed in HPI Problems or conditions discussed in the HPI were the only ones reviewed during the encounter.Only social and family history addressed in the HPI were reviewed during this encounter. A significant, separate E/M service was performed to evaluate the current and new problems. Attendant(s): NoneConstitutional and Systemic Symptoms:none Medication Reconciliation: from medication list. [id number]: Echocardiogram estimated ejection fraction 65%. Aortic valve leaflets appear structurally normal. Velocities as well as gradient across the aortic valve are normal. Mild aortic valve regurgitation. 11-02-2023: Pharmacological stress test performed demonstrated an ejection fraction estimated at 62%. There were no ST segment or T-wave changes of any myocardial ischemia. The rest and stress images revealed normal perfusion in all myocardial segments. There is no evidence of any myocardial ischemia or previous Myocardial infarctions. History of Present Illness Reviewed the findings of the preventative health visit. Addressed all areas with the patient, patient's family or caregivers. Preventative examinations and testing immunizations - vaccinations, colonic neoplasm screening, PSA and LDCT thorax all reviewed and ordered where patient was amenable to the recommendations. Cognitive function was normal. Depression addressed and where necessary medications were adjusted or instituted. End of life and living will briefly discussed with patient and where these can be filled out and legally executed. Other blood and imaging studies were ordered if considered necessary. Other recommendations may be found in the encounter note. #1. History of a previous lumbar radiculopathy which now has much improved but now complaining of pain and discomfort in the testicular region. Examination of the testes does reveal an enlargement of the left testicle could represent hydrocele or possible varicocele some type. Will need an ultrasound of the testicle for further evaluation. Will also need a urological referral.: #2. Type II Diabetes: Has had no polyuria polyphagia or polydipsia. Has had no hypoglycemic like responses. No new history of any numbness, tingling, weakness or visual problems. No nausea, anorexia or other constitutional symptoms. There has been no foot problems or non healing lesions. The last HAIC was DCCT HAIC: 7.3 Calculated MB mg%. CGM: No. Average blood sugars unknown. Checking sugars : infrequently. Medication Types Include: Metformin and GLP-1 Secondary complications include none. Macro-vascular complications include none. Therapy reviewed regarding diabetic management and include Medication Compliance: good Renal Protection: not required at this stage Lipid management: statins Urinary microalbumin: A1 . Ophthalmological: has seen eye doctor within the last year. Control: Intermediate Control 7.1 - 8.0 #3. Type II Hypercholesterolaemia: Currently taking medication and tolerating well. No interval complaints of any muscle pain or arthralgia. No significant liver changes with medications. Last lipid panel: fair control. Therapy reviewed regarding treatment of cholesterol management and include diet and Crestor. #4. Left-sided sciatic pain which is subsequently resolved but having pain and discomfort in the left testicle area at this time. Was taking the tramadol which is not helping. Will switch him over to some hydrocodone 7.5 mg q.i.d. On a temporary basis until we can do further testing.: Active Medication ListValsartan 160 MG TABLET Once DailyAspirin 81 MG TABLET One DailySymbicort 0.16 MG/INH-0.0045 MG/INH (AEROSOL, METERED - INHALATION) 2 Puffs Twice A DayCrestor 40 MG (TABLET - ORAL) Once DailyXanax 1 MG (TABLET - ORAL) One Twice A DayProair Hfa 2 Puffs Four Times A Day As NeededCpap As DirectedGlucophage 1 GM (TABLET - ORAL) BidOzempic 2MG/3ML 0.25 Weekly For 28 Days, Then 0.5 Once WeeklyLeflunomide 10 MG (TABLET - ORAL) One DailySulfasalazine 500 MG (TABLET - ORAL) Two BidHydroxychloroquine Sulfate 200 MG (TABLET - ORAL) Two Daily Vaccination and Immunization(X) 2023-02 INFLUENZA( ) 2020-05 PREVNAR 13 GC(X) 2020-09 COVID PFIZER( ) 2023-04 RSV Surgical [id number] Bilateral [id number] Ventral Hernia secodary repair with [id number] Ventral Hernia Repair with [id number] Vasectomy Preventative Testing( ) 10/05/2023 Albumin 4.8 G/DL H( ) 10/05/2023 HAIC 7.3( ) 10/05/2023 Micro Albumin 12.8 MG/L( ) 05/04/2023 PSA 0.5 NG/ML 05/04/2025(X) 02/14/2023 LDCT 02/15/2024( ) 06/11/2019 Colonoscopy (5 Years) 06/11/2024 Social HistoryFormer smoker quit approximately 2010. 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 One of CAD and the other murdered. Has one in terminal stages of congestive heart failure and one with stage IV cancer of the colon TEST RESULT RANGE UNITSCBC/COMPLETE BLD COUNT W/DIFF Date: 10/05/2023WHITE BLOOD CELLS 6.0 4.2-10.8 X10'3/ULHEMOGLOBIN 13.7 13.2-17.0 G/DLHEMATOCRIT 42.1 39.3-50.0 %PLATELETS 240 150-400 X10'3/ULCOMPREHENSIVE METABOLIC PANEL Date: 10/05/2023SODIUM 143 137-145 MMOL/LPOTASSIUM 4.3 3.5-5.1 MMOL/LGLUCOSE 124 70-99 MG/DLBUN 16 8-19 MG/DLCREATININE 0.81 0.66-1.25 MG/DLGFR >60ALKALINE PHOSPHATASE 70 38-126 U/LALANINE AMINOTRANSFERASE 39 0-50 U/LASPARTATE AMINOTRANSFERASE 32 15-46 U/LBILIRUBIN, TOTAL 0.60 0.20-1.30 MG/DLHEMOGLOBIN A1C Date: 10/05/2023HA1C 7.3 4.0-6.0 %LIPID PANEL Date: 10/05/2023HOLESTEROL 126 140-199 MG/DLTRIGLYCERIDES 164 0-150 MG/DLHDL CHOLESTEROL 43 40- MG/DLLDL CHOLESTEROL, CALCULATED 50 0-130 MG/DLLIPOPROTEIN (A) Date: 10/05/2023LIPOPROTEIN (A) 193.1 <75.0 NMOL/L Cruz Becerril MD [address] [facility], [facility] [address], [place], [address], [place] - [facility] 05/14/2024 18:00:03 09/18/19 25 text/htm l Patient Name: Hernandez Thompson Of Service: Monday ( 09.17.2024 ): 1960 Age: 64 There has been approximately a 5 lb weight gain since 05/14/2024. This represents approximately a 2.2% change in weight. Weight change attributable to lifestyle changes. Vital Signs:Blood Pressure: Sitting Rt. Arm 140/70Pulse: Sitting 75 /min and RegularRespiratory Rate: 16Height 70 in or 1.8 mWeight 232 lb or 105.2 kgBMI 33.3Temperature: 97 F or 36.1 CDCCT HAIC: 7.3 Calculated MB mg%Pulse Oximetry: 95 % at rest on no oxygen Chief Complaint: Addressed in HPI Problems or conditions discussed in the HPI were the only ones reviewed during the encounter.Only social and family history addressed in the HPI were reviewed during this encounter. Attendant(s): NoneConstitutional and Systemic Symptoms:none Medication Reconciliation: from medication list. [id number]: Echocardiogram estimated ejection fraction 65%. Aortic valve leaflets appear structurally normal. Velocities as well as gradient across the aortic valve are normal. Mild aortic valve regurgitation. 11-02-2023: Pharmacological stress test performed demonstrated an ejection fraction estimated at 62%. There were no ST segment or T-wave changes of any myocardial ischemia. The rest and stress images revealed normal perfusion in all myocardial segments. There is no evidence of any myocardial ischemia or previous Myocardial infarctions. History of Present Illness #1. COPD: Hx of Emphysema currently stable. There has been no interval change in exercise tolerance an shortness of breath. No change in sputum production, color or consistency. No fever, chills, weight loss or other constitutional symptoms. Gold Scale: Moderate. MRC Scale: normal walking. Smoking: not currently smoking Current medications: Proair Hfa and Symbicort Using nebulizer Treatments: No. Uses does not use supplemental oxygen #2. Sleep Apnea: Type: PHILIP Current doing well. No significant daytime somnolence or problems performing daily chores. Using CPAP on nightly basis . Overall has shown considerable improvement.[place] Sleepiness ScaleSitting and ReadinWatching TV: 1Sitting Inactive in a Public Place: 1Passenger in a Car: 0Lying Down in Afternoon: 1Sitting and Talking to someone: 1Sitting quietly after lunch: 0In a car while stopped or drivinScore Interpretation: 0-7 No evidence of abnormally sleepy #3. Type II Hypercholesterolaemia: Currently taking medication and tolerating well. No interval complaints of any muscle pain or arthralgia. No significant liver changes with medications. Last lipid panel: fair control. Therapy reviewed regarding treatment of cholesterol management and include diet. #4. Type II Diabetes: Has had no polyuria polyphagia or polydipsia. Has had no hypoglycemic like responses. No new history of any numbness, tingling, weakness or visual problems. No nausea, anorexia or other constitutional symptoms. There has been no foot problems or non healing lesions. The last HAIC was DCCT HAIC: 7.3 Calculated MB mg%. CGM: No. Average blood sugars not taking blood sugars regularly and instructed on the importance of monitor these values. Checking sugars : several times a week. Medication Types Include: Metformin and GLP-1 Secondary complications include none. Macro-vascular complications include none. Therapy reviewed regarding diabetic management and include Glucophage and Ozempic Compliance: good Renal Protection: ARBs Lipid management: statins Urinary microalbumin: A1 . Ophthalmological: has seen eye doctor within the last year. Control: Intermediate Control 7.1 - 8.0 #5. Hx of obesity. Currently Class 2 Obesity BMI 35-39.99. Has tried numerous dietary support and supplements with no benefit. Instructed on the health consequences of the obese status particularly cancer - diabetes and heart disease. Discussed other modalities of weight loss GLP-1 medications that are used to treat diabetes and currently using GLP-1 Inhibitors with diet and doing well . Potential candidate for bariatric surgery: Yes. Wishes to be evaluated by Dietary: No and was offered to be evaluated and instructed by food inspector on weight loss diet. Active Medication ListValsartan 160 MG TABLET Once DailyAspirin 81 MG TABLET One DailySymbicort 0.16 MG/INH-0.0045 MG/INH (AEROSOL, METERED - INHALATION) 2 Puffs Twice A DayCrestor 40 MG (TABLET - ORAL) Once DailyXanax 1 MG (TABLET - ORAL) One Twice A DayProair Hfa 2 Puffs Four Times A Day As NeededCpap As DirectedGlucophage 1 GM (TABLET - ORAL) BidOzempic 2MG/3ML 0.25 Weekly For 28 Days, Then 0.5 Once WeeklyLeflunomide 10 MG (TABLET - ORAL) One DailySulfasalazine 500 MG (TABLET - ORAL) Two BidHydroxychloroquine Sulfate 200 MG (TABLET - ORAL) Two Daily Vaccination and ImmunizationImmunizations and Vaccinations Discussed and Implemented if feasible In the Office. Else referred to pharmacies. (X) 2022- INFLUENZA( ) 2020-05 PREVNAR 13 GC(X) 2020-09 COVID PFIZER( ) 2023-04 RSV( ) 2024-05 PREVNAR 20 Surgical [id number] Bilateral [id number] Ventral Hernia secodary repair with [id number] Ventral Hernia Repair with [id number] Vasectomy Preventative TestingPreventative Testing Discussed and Scheduled if Acceptable to Patient ( ) 10/05/2023 Albumin 4.8 G/DL H( ) 10/05/2023 HAIC 7.3( ) 10/05/2023 Micro Albumin 12.8 MG/L( ) 05/04/2023 PSA 0.5 NG/ML 05/04/2025(X) 02/14/2023 LDCT 02/15/2024(X) 06/11/2019 Colonoscopy (5 Years) 06/11/2024 Social HistoryFormer smoker quit approximately 2010. 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 One of CAD and the other murdered. Has one in terminal stages of congestive heart failure and one with stage IV cancer of the colon TEST RESULT RANGE UNITSCBC/COMPLETE BLD COUNT W/DIFF Date: 10/05/2023WHITE BLOOD CELLS 6.0 4.2-10.8 X10'3/ULHEMOGLOBIN 13.7 13.2-17.0 G/DLHEMATOCRIT 42.1 39.3-50.0 %PLATELETS 240 150-400 X10'3/ULCOMPREHENSIVE METABOLIC PANEL Date: 10/05/2023SODIUM 143 137-145 MMOL/LPOTASSIUM 4.3 3.5-5.1 MMOL/LGLUCOSE 124 70-99 MG/DLBUN 16 8-19 MG/DLCREATININE 0.81 0.66-1.25 MG/DLGFR >60ALKALINE PHOSPHATASE 70 38-126 U/LALANINE AMINOTRANSFERASE 39 0-50 U/LASPARTATE AMINOTRANSFERASE 32 15-46 U/LBILIRUBIN, TOTAL 0.60 0.20-1.30 MG/DLHEMOGLOBIN A1C Date: 10/05/2023HA1C 7.3 4.0-6.0 %LIPID PANEL Date: 10/05/2023HOLESTEROL 126 140-199 MG/DLTRIGLYCERIDES 164 0-150 MG/DLHDL CHOLESTEROL 43 40- MG/DLLDL CHOLESTEROL, CALCULATED 50 0-130 MG/DL Cruz Becerril MD [address] [facility], [facility] [address], [place], [address], [facility] 09/17/2024 10:36:17
--- OUTSIDE RECORDS SUMMARY | 2024-10-24 01:23 | XMS_ITS | Encounter Summary ---
Author Organization [facility] Address [address] [place] [address] Phone Care Team Providers Care Client Account Manager Name Role Phone Luis Manuel Becerril MD Primary Care Provider Encounter Details Date Type Department Care Team (Late st Contact Info) Description 03/10/2020 Orders Only [facility] Scanning, Provider Social History Tobacco Use Types Packs/Day Years Used Date Smoking Tobacco: Former Cigarettes Q uit: 2012 Smokeless Tobacco: Never Alcohol Use Standard Drinks/Week Comments Yes 0 (1 standard drink = 0.6 oz pur e alcohol) social Sex and Gender Information Value Date Recorded Sex Assigned at Not on file 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 Gender Identity Not on file Sexual Orientation Not on file documented as of this encounter Plan of Treatment Not on file documented as of this encounter Procedures Procedure Name Priority Date/Time Associated Diagnosis Comments SCAN - LABS 03/10/2020 documented in this encounter Results * SCAN - LABS (03/10/2020) us Provider Scanning Final Result documented in this encounter Visit Diagnoses Not on filedocumented in this encounter Care Teams Client Account Manager Relationship Specialty Start Date End Date Luis Manuel Becerril MD [address] [place] [address] PCP - General Internal Medicine 01/31/20 documented as of this encounter
--- OUTSIDE RECORDS SUMMARY | 2024-10-24 01:23 | XMS_ITS | Clinical Summary ---
Author Organization [facility] [address] [facility] [address] Address [address] [facility] [address] [place] [address] Care Team Providers Care Capital Campaign Fundraiser Name Role Phone Luis Manuel Becerril MD Primary Care Provider Allergies No known active allergies Medications latanoprost (XALATAN) 0.005 % ophthalmic solution 8 Active ALPRAZolam (XANAX) 1 mg tablet Take 1 tablet (1 mg total) by mouth 1 Active metFORMIN (GLUCOPHAGE) 1,000 mg tablet Take 1 tablet (1,000 mg total) by mouth 2 (two) times a day 0 Active rosuvastatin (CRESTOR) 40 mg tablet 0 Active dorzolamide (TRUSOPT) 2 % ophthalmic solution INSTILL 1 DROPS INTO EACH EYE TWICE DAILY 1 Active albuterol HFA (PROVENTIL HFA,VENTOLIN HFA,PROAIR HFA) 90 mcg/actuation inhaler 2 Active brimonidine (ALPHAGAN) 0.15 % ophthalmic solution brimonidine 0.15 % eye drops Active biotin 5,000 mcg tablet,disinteg rating 1 tablet Active roflumilast (DALIRESP) 250 mcg tablet 4 Active Ozempic 0.25 mg or 0.5 mg (2 mg/3 mL) pen injector injection 4 Active valsartan (DIOVAN) 160 mg tablet Take 1 tablet (160 mg total) by mouth 4 Active cyclobenzaprine (FLEXERIL) 10 mg tabletIndicatio ns:Muscle Spasm Take 1 tablet (10 mg total) by mouth 2 (two) times a day as needed for muscle spasms 20 tablet 4 Active ibuprofen (ADVIL,MOTRIN) 600 mg tabletIndicatio ns:Pain Take 1 tablet (600 mg total) by mouth every 6 (six) hours as needed for pain 30 tablet 4 Active gabapentin (NEURONTIN) 300 mg capsuleIndicati ons:Neuropathic Pain Take 1 capsule (300 mg total) by mouth nightly For post-herpetic neuralgia: Take 1 tablet on day 1, Then take 2 tablets on day 2, Then take 3 tablets on day 3 and every day after that as instructed by your doctor. 30 capsule 4 Active lidocaine (LIDODERM) 5 % Place 1 patch on the skin daily Remove & discard patch within 12 hours or as directed by MD. 15 patch 4 Active leflunomide (ARAVA) 20 mg tabletIndicatio ns:Rheumatoid arthritis of multiple sites with negative rheumatoid factor (HCC) Take 1 tablet (20 mg total) by mouth daily 90 tablet [address] (VOLTAREN) 75 mg EC tabletIndicatio ns:Rheumatoid arthritis of multiple sites with negative rheumatoid factor (HCC) Take 1 tablet (75 mg total) by mouth 2 (two) times a day 180 tablet 1 5 Active hydroxychloroqu ine (PLAQUENIL) 200 mg tabletIndicatio ns:Rheumatoid arthritis of multiple sites with negative rheumatoid factor (HCC) Take 2 tablets (400 mg total) by mouth daily 180 tablet 1 5 Active Active Problems Problem Noted Date Diagnosed Date Other specified glaucoma 01/03/2023 COPD (chronic obstructive pulmonary disease) DM (diabetes mellitus) 01/31/2020 Anxiety 10/12/2010 PHILIP (obstructive sleep apnea) 02/01/2010 Resolved Problems Problem Noted Date Diagnosed Date Resolved Date Shortness of breath 09/07/2017 01/31/20 20 Obesity (BMI 30-39.9) 09/07/20172021 Surgical History Surgery Date Site/Laterality Comments HERNIA REPAIR CARPAL TUNNEL RELEASE CATARACT EXTRACTION Medical History Medical History Date Comments Hyperlipemia Hepatitis Diabetes (HCC) Cataract Family History Medical History Relation Name Comments Heart failure Mother Stroke Sister Relation Name Status Comments Mother Sister Social History Tobacco Use Types Packs/Day Years Used Date Smoking Tobacco: Former Cigarettes Q uit: 2012 Smokeless Tobacco: Never Tobacco Cessation:Counseling Given: Not Answered Alcohol Use Standard Drinks/Week Comments Yes 0 (1 standard drink = 0.6 oz pur e alcohol) social AUDIT-C Answer Date Recorded Frequency of Alcohol Consumption Not on file 07/22/2024 Q2: How many drinks containi ng alcohol do you have on a typical day when you are drinking? Patient does not drink Frequency of Binge Drinking Not on file 07/06 Personal Safety Answer Date Recorded Have you ever been in or are you currently in a harmful physical or emotional relationship or is someone making you feel afraid or unsafe? 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 Gender Identity Not on file Sexual Orientation Not on file Obstetrics History Last Filed Vital Signs Vital Sign Reading Time Taken Comments Blood Pressure 125/77 07/22/2024 7:34 AM CDT Pulse 62 07/22/2024 7:34 AM CDT Temperature 36.8 C (98.3 F) 07/22/2024 7:34 AM CDT Respiratory Rate 20 04/26/2024 9:13 AM STRATEGIC PLANNING SPECIALIST Oxygen Saturation 97% 04/26/2024 2:25 PM STRATEGIC PLANNING SPECIALIST Inhaled Oxygen Concentration - - Weight 107.1 kg (236 lb 3.2 oz) 07/22/2024 7:34 AM CDT Height 177.8 cm (5' 10) 07/22/2024 7:34 AM CDT Body Mass Index 33.89 07/22/2024 7:34 AM CDT Plan of Treatment Health Maintenance Due Date Last Done Comments Albumin Creatinine Ratio, Urine 1960 Colon Cancer Screening-Colonoscopy 1960 Depression Screening 1960 Fall Risk Assessment 1960 Hemoglobin A1C 1960 Prostate Cancer Screening-PSA 1960 Dilated Eye Exam 1960 Foot Exam 1960 Lipid Panel 1960 Hepatitis B Screening 1976 Zoster Vaccine (1 of 2) 1977 Pneumococcal vaccine 65+ (3 of 3 - PPSV23, PCV20 or PCV21) 07/28/2020 06/02/2020, 12/29/2011 Abdominal Aortic Aneurysm (A AA) Screen 2023 Well Visit 65+ 2023 Influenza Vaccine (Season Ended) 2025 02/12/2022, 02/12/2021, 02/14/2019, Additional history exists eGFR 07/22/2025 07/22/2024, 01/06, 07/18/2023, Additional history exists DTaP/Tdap/Td Vaccine (3 - Td or Tdap) 10/07/2027 10/06/2017, 02/01/2011 Hepatitis C Screening Completed 01/31/2020 Procedures Procedure Name Priority Date/Time Associated Diagnosis Comments EGFR Routine 07/22/2024 8:11 AM CDT Primary osteoarthritis, unspecified site HEPATITIS PANEL, ACUTE Routine 01/31/2020 8:24 AM CDT Rheumatoid arthritis, involving unspecified site, unspecified rheumatoid factor presence (CMS/HCC) from Last 3 Months or Most Recently Relevant to Health Maintenance Results * eGFR (07/22/2024 8:11 AM CDT) eGFR >90 >=60 mL/min/1. 73 m2 Comment: Interpretive Data Reference Interval Normal >/= 90 mL/min/1.73m2 Mildly decreased* 60 - 89 mL/min/1.73m2 Mildly to moderately decreased 45 - 59 mL/min/1.73m2 Moderately to severely decreased 30 - 44 mL/min/1.73m2 Severely decreased 15 - 29 mL/min/1.73m2 Kidney Failure < 15 mL/min/1.73m2 *Relative to young adult level Estimated glomerular filtration rate is determined by the 2020 CKD-EPI equation recommended by the National Kidney Foundation (A Unifying Approach to GFR Estimation: Recommendations of the NKF-ASK Task Force on Reassessing the Inclusion of Race in Diagnosing Kidney Disease, JASN 2020). The CKD-EPI equation should not be used for patients with unstable renal function and has not been validated in children and those over 70. Current interpretive data was last reviewed 2021. Blood 07/22/2024 8:11 AM CDT 07/22/2024 8:31 AM CDT Hoda Helm NP LAB BLOOD ORDERABLES Fi nal Result [facility] [address] [facility] Department [place] [employer] [place] [address] * (ABNORMAL) Hepatitis panel, acute (01/31/2020 8:24 AM CDT) Hep A IgM Nonreactive Nonreactive [facility] Comment: Interpretive Data: If Hep A IgM Ab is reported as Equivocal, a new sample should be drawn in two weeks for testing. Current interpretive data was last revised on 19. Testing performed by: [facility], [address] [place] [address]., [id number] Hep B core IgM Nonreactive Nonreactive [facility] Comment: Interpretive Data If HepB Core IgM Ab is reported as Equivocal, a new sample should be drawn in two weeks for testing. Current interpretive data was last revised on 19. Testing performed by: [facility], [address] [place] [address]., [id number] Hep C Ab Reactive(C) Nonreactive [facility] Comment: Critical result called to and read back by Makenna Garza RN on 01/31/20 1437 to [id number] Interpretive Data Nonreactive: Antibodies to HCV not detected. Does NOT exclude the possibility of recent exposure to HCV. Equivocal: Equivocal for HCV antibodies. Supplemental molecular testing will be automatically performed to determine infection status in accordance with current CDC screening recommendations. Reactive: Positive for HCV antibodies. This may represent current or past HCV infection. Supplemental molecular testing will be automatically performed to determine current infection status in accordance with current CDC screening recommendations. Interpretive data was last revised on 2019. Testing performed by: [facility], [address] [place] [address]., [id number] HepBsAg Nonreactive Nonreactive [facility] Comment:Testing performed by : [facility], [facility], [place]., [address] Blood specimen (specimen) 01/31/2020 8:24 AM CDT 01/31/2020 11:47 AM CDT Hoda Helm NP LAB MICROBIOLOGY - GENE RAL ORDERABLES Final Result [facility] [address] [facility] Department [place] [address] from Last 3 Months or Most Recently Relevant to Health Maintenance Insurance [email or web address] [facility] [employer]ORE [employer] PPO POS [place] CHOICE PLUS [facility] MEDICARE AET MEDICARE Care Teams Capital Campaign Fundraiser Relationship Specialty Start Date End Date Luis Manuel Becerril MD [address] [facility] [place] [address] PCP - General Internal Medicine 01/31/20
--- OUTSIDE RECORDS SUMMARY | 2024-10-24 01:24 | XMS_ITS | Data Portability ---
[facility] Address [address] [place] [address] Care Team Providers Care Ppa Teacher Name Role Phone QUANTUM [employer]ISION Surgical Technician Assessment No assessment recorded. Plan of Treatment Reminders Order Date Submit Date Provider Last Modified By Organization Details Last Modified Time Details Appointments None recorded. Lab CBC w/ auto diff 2018 019 [facility], [address], [place], [address], 9 10:58:06 urinalysis, complete 2018 019 [facility], [address], [place], [address], 9 10:58:06 CMP, serum or plasma 2018 019 [facility], [address], [place], [address], 9 10:58:05 lipid panel, serum 2018 019 [facility], [address], [place], [address], 9 10:58:04 HIV 1+2 AB + HIV 1 p24 Ag, qualitative immunoassay , serum 2018 019 [facility], [address], [place], [address], 9 10:58:04 hepatitis C Ab, signal-to-c utoff, serum or plasma 2018 019 SH[facility], [address], [place], [address], 9 10:58:03 TSH, ultra-sensi tive, serum 2018 019 [facility], [address], [place], [address], 9 10:58:00 Referral None recorded. Procedures None recorded. Surgeries None recorded. Imaging None recorded. Medication Orders None recorded. Patient TargetsNo targets recorded. Patient Instructions Encounter Date Encounter Id Patient Instructions Last Modified By Organization Details Last Modified Time 06/13/2018 [id number] anxiety disorder : care instructions oajao Not available 06/13/2018 10:52:37 chronic obstructive pulmonary disease (COPD): care instructions oajao Not available 06/13/2018 10:51:46 learning about copd and how to prevent lung infections oajao Not available 06/13/2018 10:51:46 Records Labs Colonoscopy and CXR or CT scan chest report Note from his surgeon and his multifocal button inspector Follow up in 3-4 months oajao Not available 06/13/2018 11:02:42 The management o f his anxiety was discussed, he will need to try Hydralazine as I do not prescribe Xanax. oajao Not available 06/13/2018 19:55:26 Reason for Referral None Reported. Problems No Known Problems Procedures Surgical History Date Name Laterality Status Provider Name and Address Organization Details Recorded Time Hernia Repair completed Genevieve hodges MA [facility] 06/13/2018 10:34:42 Imaging Results None recorded. Procedure Notes None recorded. Medical Equipment None Reported. Allergies No known drug allergies Medications Name Sig Start Date Stop Date Status Note LastModified by Organization Details LastModified Time latanoprost 0.005 % eye drops 06/13 completed Not Available Not Available Not Available alprazolam 1 mg tablet Take 1 tablet 3 times a week by oral route as needed for 30 days. active Not Available Not Available No t Available meloxicam 15 mg tablet 06/13 completed Not Available Not Available Not Available prednisolon e acetate 1 % eye drops,suspe nsion active Not Available Not Available Not Available ciprofloxac in 0.3 % eye drops 06/13 completed Not Available Not Available Not Available cephalexin 500 mg capsule 06/13 completed Not Available Not Available Not Available naproxen 500 mg tablet 06/13 completed Not Available Not Available Not Available Crestor Once a day active Not Available Not Available No t Available ProAir HFA 90 mcg/actuati on aerosol inhaler active Not Available Not Available Not Available Symbicort 160 mcg-4.5 mcg/actuati on HFA aerosol inhaler Inhale 2 inhalatio ns twice a day by inhalatio n route for 90 days. active Not Available Not Available No t Available Ilevro 0.3 % eye drops,suspe nsion 06/13 completed Not Available Not Available Not Available Spiriva Respimat 1.25 mcg/actuati on solution for inhalation active Not Available Not Available N ot Available Vitals Date Recorded Body height Body mass index (BMI) Body weight Body temperature Heart rate Oxygen saturation Oxygen saturation in Arterial blood by Pulse oximetry Systolic blood pressure Diastolic blood pressure Provider Name and Address Organization Details Last Updated DateTime 9 175.26 cm 37.9 kg/m2 719631. 52 g 97.8 [degF] 58 /min 96 % 96 % 126 mm[Hg] 74 mm[Hg] Genevieve Rendon MA [facility] 9 10:39:13 Social History Question Answer Notes LastModified by Organizat ion Details LastModified Time Tobacco Smoking Status Former Smoker Genevieve Rendon MA null, [facility] 06/13/2018 10:33:49 What Is Your Level Of Caffeine Consumption? Heavy Information not available 06/13/2018 How Much Tobacco Do You Chew? None Information not available 06/13/2018 What Type Of Diet Are You Following? REGULAR Information not available 06/13/2018 Are There Any Guns Present In Your Home? No Information not available 06/13/2018 Hard Of Hearing Or Deaf In One Or Both Ears? No Information not available 06/13/2018 Legally Blind In One Or Both Eyes? No Information not available 06/13/2018 Marital Status Informatio n not available 06/13/2018 What Was The Date Of Your Most Recent Tobacco Screening? 06/13/2018 Information not available 11/29/2018 Seat Belts Used Routinely Yes Information not available 06/13/2018 Smoke Alarm In Home Yes Information not available 06/13/2018 How Much Tobacco Do You Smoke? No Stopped 8 Years Ago Information not available 06/13/2018 How Many Years Have You Smoked Tobacco? 20 Information not available 06/13/2018 Sex: Unknown Functional Status Question Answer Note LastModified by Organizat ion Details LastModified Time What is your level of alcohol consumption? 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 None Information not available 06/13/2018 Mental Status None recorded. Family History Relationship Description Onset Age of this Age Resolved Age Notes LastModified by Organization Details LastModified Time Mother Diabetes mellitus [email or web address] Not available 2018 10:35:47 Medical History Condition Response Coronary Artery Disease N Other N Atrial Fibrillation N High Blood Pressure N Thyroid Problems N Kidney or Bladder Problems N Depression N COPD Y Blood Clots N GI Problems N Skin Problems N Anemia N Heart Attack ([place]) N Diabetes N Anxiety Disorder Y Muscle, Joint, or Bone Problems N Seizures/Epilepsy N Acid Reflux (GERD) N Cancer N Stroke N Allergies N Asthma N High Cholesterol Y Hepatitis N Liver Disease N Headaches N Osteoporosis N Heart Failure N Immunizations Vaccine Type Date Status Note Provider Nam e and Address Organization Details Recorded Time Tdap 8 completed Yeni Wallis MD Attn: Accounting[address] [place], [address], [facility] 06/13/2018 10:49:07 Influenza, split virus, quadrivalent, preservative 8 completed Yeni Wallis MD Attn: [address]ing[address] [place], [address], [facility] 06/13/2018 10:49:22 Past Encounters Encounter ID Performer Location Encounter Start Date Encounter Closed Date Diagnosis/Indication Diagnosis SNOMED-CT Code Diagnosis ICD10 Code Diagnosis Note [id number] Yeni Wallis MD [facility] (Adult Med) [address] [place] [address] 06/13/2018 09:59:16 06/14/2018 08:46:43 General examination of patient 410078117 Z00.01 Chronic ob structive pulmonary disease 91245259 J44.9 Tobacco de pendence in remission 162304682 F17.201 Bilateral carpal tunnel syndrome 8859617186 9396504 G56.03 Generalize d anxiety disorder 00419466 F41.1 He was previously on a medication for BPAD, it never did help.He was started on Xanax by Dr Orozco, he uses it intermitte ntly, I have discussed with him that I do not prescribe Xanax, Hydroxyzin e maybe an option. Arthritis 6179152 M19.90 History of polyp of colon 191318445 Z86.010 Health Concerns Section Related Observation LastModified by Organization Detai ls LastModified Time None Recorded Concern Status LastModified by Organization Details LastModified Time None Recorded Advance Directives Directive None Recorded Payers Insurance Date Sequence Insurance Name Policy Number Policy James Covered Member ID James Member ID Guarantor Name 06/13/2018 1 [facility] ([facility]) [id number] Hernandez Gonzales [id number] Hernandez Gonzales Notes Date Note Type Note Provider Name and Address Organization Details Recorded Time 9 text/html I have the shooting pains going up my arms 58 y/o WM who presents as a new patient, he was recently diagnosed with arthritis and R. CTS and he is scheduled for surgery. PMHX. COPD, Tobacco in remission, Hypercholesterolemia and Glaucoma Yeni Wallis MD Attn: Accounting[address] [facility], [place], [address], [facility] 06/13/2018 19:56:27
--- OUTSIDE RECORDS SUMMARY | 2024-10-24 01:24 | XMS_ITS | CONTINUITY OF CARE DOCUMENT ---
Author Name jaqueline dianjamaal Address Unknown Organization [facility] Address [address] [place] [address] Phone [phone] Care Team Providers Care Child Protection Specialist Name Role Phone Nilda ROD, Walter Unavailable Frances Dhillon MD Unavailable CRUZ LOUIS MD Unavailable [phone] PROBLEMS Condition Status Date Provider Notes Screening active Walter Munguia MD CAD active Walter Munguia MD Aortic regurgitation, mild active Walter juarez MD Obesity active Walter Munguia MD FAMILY HISTORY OF HEART DISEASE active Morris Munguia MD mom and dad chf Hypercholesterolemia;neg crp and high lpa active Walter Munguia MD Glaucoma active Walter Munguia MD Diabetes mellitus, type 2 active Walter weiss MD neg egfr and uacr RA, chronic active Walter Munguia MD COPD active Walter Munguia MD has lung md covid 19;2020;HAD VACCINE active Walter weiss MD HEPATITIS C;cured active Walter Munguia MD HYPERTENSION active Walter Munguia MD Tobacco use, quit active Walter Munguia MD t oo remote to [facility] SLEEP APNEA;on rx active Walter Munguia MD SVT;brief;nml tsh active Walter Munguia MD Hypertriglyceridemia active Walter Conti ENCOUNTERS Date Type Provider Location Encounter Diag nosis - In-person encounter Office Visit Walter Munguia MD [facility] SVT;brief;nml tshHypertriglyceridemia - In-person encounter Office Visit Walter Munguia MD [place] [facility] ObesityFAMILY HISTORY OF HEART DISEASEHypercholesterolemia;n eg crp and high lpaGlaucomaDiabetes mellitus, type 2RA, chronicCOPDcovid ;HAD VACCINEHEPATITIS C;curedHYPERTENSIONTobacco use, quitSLEEP APNEA;on rx VITAL SIGNS Date Observation Value Provider Body Mass Index (Ratio) 35.15 kg/m2 Morris Munguia MD blood pressure, cuff size regular [facility] blood pressure, diastolic 90 mm[Hg] Ke rri Jenanenfelder blood pressure, systolic 152 mm[Hg] [facility], oximetry 95 % [facility] respiratory rate E&M 12 /min [facility] pulse rate 76 /min Fabiana Recio er weight E&M 245 [lb_av] Fabiana Recio er height E&M 70 [in_i] Fabiana Recio er Body Mass Index (Ratio) 35.15 kg/m2 Morris Munguia MD blood pressure, diastolic 84 mm[Hg] Li nkLogic blood pressure, systolic 153 mm[Hg] Analisa kLogic blood pressure, cuff size regular Ja rret blood pressure, diastolic 84 mm[Hg] Ja rret blood pressure, systolic 153 mm[Hg] Jar ret pulse rate 64 /min Sumanth y height E&M 70 [in_i] Sumanth y oxygen saturation, oximetry 94 % respiratory rate E&M 14 /min weight E&M 245 [lb_av] Sumanth y ALLERGIES No Known Drug Allergies RESULTS Date Observation Value Provider Reference Range Interpretation Location 1 pro brain natriuretic peptide <36 pg/mL [facility] 0-376 1 free thyroxine index 2.0 [facility] 1.2-4.9 1 triiodothyronine resin uptake 27 % [facility] 24-39 1 thyroxine, serum, total 7.3 ug/dL [facility] 4.5-12.0 1 thyroid stimulating hormone, serum 0.996 u[IU]/mL [facility] 0.450-4.500 1 microalbumin/creatin ine ratio, urine 11 MG/G CREAT [facility] 0-29 1 microalbumin, random, urine 1.69 mg/dL [facility] Units converted. See lab report for original value. 1 creatinine, random, urine 156.3 mg/dL [facility] Not Estab. HISTORY OF MEDICATION USE Medication Status Instructions Dates Provider Indications Com ments valsartan 160 mg tablet active TAKE 1 TABLET ONCE DAILY Nura Cook Ozempic 0.25 mg or 0.5 mg (2 mg/3 mL) pen injector active Inject 1/4 mg subcutaneously once a week for 28 days, then inject 1/2 mg subcutaneously once a week 11/19 Fabiana Ventura Vascepa 1 gram capsule active Take 2 capsule by mouth twice a day 11/19 Walter Munguia MD Symbicort 160-4.5 mcg/actuation HFA aerosol inhaler active Walter Munguia MD roflumilast 250 mcg tablet active Walter Munguia MD valsartan 160 mg tablet completed TAKE 1 TABLET BY MOUTH ONCE A DAY 10/04 - Elvi Sam Med PA Specialist aspirin 81 mg tablet,chewable active TAKE 1 TABLET BY MOUTH EVERY DAY 10/04 Walter Munguia MD rosuvastatin 40 mg tablet active Walter Brunertrerinn Aerosphere 160-9-4.8 mcg/actuation HFA aerosol inhaler completed - 11/19 Walter Munguia MD diclofenac sodium 75 mg tablet,delayed release (DR/EC) active Walter Munguia MD albuterol sulfate 90 mcg/actuation HFA aerosol inhaler active Walter neri MD dorzolamide 2% drops active Walter Munguia MD hydroxychloroquine 200 mg tablet active Walter Munguia MD leflunomide 20 mg tablet active Walter Munguia MD metformin 1,000 mg tablet active Walter Munguia MD latanoprost 0.005% drops active Walter Munguia MD SOCIAL HISTORY Date Observation Value Provider cigarette use yes Walter Munguia MD smoking status Former smoker Walter neri MD quit smoking, stage quit Walter orona MD cigarette use yes Sumanth lara smoking status Former smoker Sumanth Gilbert rday INSURANCE PROVIDERS Payer name Policy type / Coverage type [place] red republican ID [employer] MEDICARE [facility] [id number] ADVANCE DIRECTIVES Name Date DISCUSSED - NO DECISION MADE TREATMENT PLAN Date Name Performer :nml pron bnp Walter Munguia MD Cardiology Walter Munguia MD Cardiology Walter Munguia MD Cardiology Walter Munguia MD Cardiology Walter Munguia MD Cardiology Walter Munguia MD Cardiology Walter Munguia MD Cardiology Walter Munguia MD Cardiology Walter Munguia MD Cardiology Walter Munguia MD Cardiology: 6 .3 Walter Munguia MD Cardiology: n eg nuc 24 Walter Munguia MD :neg nuc 24 Walter Munguia MD :nml ef Walter Munguia MD Cardiology Walter Munguia MD Cardiology Walter Munguia MD Cardiology Walter Munguia MD Cardiology Walter Munguia MD Cardiology Walter Munguia MD Cardiology Walter Munguia MD Cardiology Walter Munguia MD Cardiology Walter Munguia MD Cardiology Walter Munguia MD Cardiology Walter Munguia MD Cardiology:6.3 Walter Munguia MD Date Name PROBNP, N TERMINAL Microalb/Creatinine Urine, Random Lipoprotein (a) CT, Coronary Calcium Score RPM (remote patient monitoring) TSH, free T4, total T3 Stress Exercise Card iolite Stress Regadenoson Holter Monitor 24 Hr Complete Echo Microalb/Creatinine Urine, Random HISTORY OF PROCEDURES Procedure Date Procedure Name Provider Procedure Notes S tatus CT- Coronary CA score Walter Munguia MD completed EKG Walter Munguia MD complete d
--- OUTSIDE RECORDS SUMMARY | 2024-10-24 01:24 | XMS_ITS | Referral Summary ---
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 Gender Identity Not on file Sexual Orientation Not on file Last Filed Vital Signs Vital Sign Reading Time Taken Comments Blood Pressure 125/77 07/22/2024 7:34 AM CDT Pulse 62 07/22/2024 7:34 AM CDT Temperature 36.8 C (98.3 F) 07/22/2024 7:34 AM CDT Respiratory Rate 20 04/26/2024 9:13 AM DIRECTOR OF ENTERPRISE APPLICATIONS Oxygen Saturation 97% 04/26/2024 2:25 PM DIRECTOR OF ENTERPRISE APPLICATIONS Inhaled Oxygen Concentration - - Weight 107.1 kg (236 lb 3.2 oz) 07/22/2024 7:34 AM CDT Height 177.8 cm (5' 10) 07/22/2024 7:34 AM CDT Body Mass Index 33.89 07/22/2024 7:34 AM CDT Plan of Treatment Not on file Procedures Procedure Name Priority Date/Time Associated Diagnosis [...] CDT Hoda Helm NP LAB BLOOD ORDERABLES nal Result [facility] [address] [facility] [facility]. Department [place] [address] * (ABNORMAL) Hepatitis panel, acute (01/31/2020 8:24 AM CDT) Hep A IgM Nonreactive Nonreactive [facility] Comment: Interpretive Data: If Hep A IgM Ab is reported as Equivocal, a new sample should be drawn in two weeks for testing. Current interpretive data was last revised on 19. Testing performed by: [facility], [address] [place] [address], [place]., [address] Hep B core IgM Nonreactive Nonreactive [facility] Comment: Interpretive Data If HepB Core IgM Ab is reported as Equivocal, a new sample should be drawn in two weeks for testing. Current interpretive data was last revised on 19. Testing performed by: [facility], [address] [place] [address], [place]., [address] Hep C Ab Reactive(C) Nonreactive [facility] Comment: Critical result called to and read back by Makenna Garza RN on 01/31/20 5900 to [id number] Interpretive Data Nonreactive: Antibodies to HCV not [...] last revised on 2019. Testing performed by: [facility], [address] [place] [address]., [id number] HepBsAg Nonreactive Nonreactive [facility] Comment:Testing performed by : [facility], [address] [place] [address]., [id number] Blood specimen (specimen) 01/31/2020 8:24 AM CDT 01/31/2020 11:47 AM CDT Hoda Helm NP LAB MICROBIOLOGY - [facility] ORDERABLES Final Result [facility] [address] [facility]. Department [place] [address] from Last 3 Months or Most Recently Relevant to Health Maintenance Insurance [facility] [employer] PPO POS [facility] CHOICE PLUS AET MEDICARE AET MEDICARE Care Teams Hot Pond Operator Relationship Specialty Start Date End Date Luis Manuel Becerril MD [address] [facility] [address] [place] [address] PCP - General Internal Medicine 01/31/20
--- OUTSIDE RECORDS SUMMARY | 2024-10-24 01:24 | XMS_ITS | Encounter Summary ---
Author Organization [facility] Address [address] [place] [address] Phone Care Team Providers Care Classification Inspector Name Role Phone Alexandra Tang Primary Care Provider + Luis Manuel Becerril MD Primary Care Provider Encounter Details Date Type Department Care Team (Late st Contact Info) Description 01/02/2020 Orders Only [facility] Scanning, Provider Social History Tobacco Use Types Packs/Day Years Used Date Smoking Tobacco: Former Cigarettes Q uit: 2012 Smokeless Tobacco: Never Alcohol Use Standard Drinks/Week Comments Yes 0 (1 standard drink = 0.6 oz pur e alcohol) social Sex and Gender Information Value Date Recorded Sex Assigned at Not on file 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 Gender Identity Not on file Sexual Orientation Not on file documented as of this encounter Plan of Treatment Not on file documented as of this encounter Procedures Procedure Name Priority Date/Time Associated Diagnosis Comments SCAN - RADIOLOGY/IMAGING 01/02/2020 documented in this encounter Results * SCAN - RADIOLOGY/IMAGING (01/02/2020) Anatomical Region Laterality Modality Other us Provider Scanning Edited Result - Final documented in this encounter Visit Diagnoses Not on filedocumented in this encounter Care Teams Classification Inspector Relationship Specialty Start Date End Date Alexandra Tang PA PCP - General Nurse Practitioner 08/11/17 01/30/20 Luis Manuel Becerril MD [address] [place] [address] PCP - General Internal Medicine 01/31/20 documented as of this encounter
--- OUTSIDE RECORDS SUMMARY | 2024-10-24 01:24 | XMS_ITS | Encounter Summary ---
Author Organization [facility] Address [address] [place] [address] Phone Care Team Providers Care Corporate Recycling Manager Name Role Phone Alexandra Tang Primary Care Provider + Luis Manuel Becerril MD Primary Care Provider Encounter Details Date Type Department Care Team (Late st Contact Info) Description 11/21/2019 Orders Only [facility] Scanning, Provider Social History Tobacco Use Types Packs/Day Years Used Date Smoking Tobacco: Former Cigarettes Q uit: 2012 Smokeless Tobacco: Never Alcohol Use Standard Drinks/Week Comments Yes 0 (1 standard drink = 0.6 oz pur e alcohol) social Sex and Gender Information Value Date Recorded Sex Assigned at Not on file Legal Sex Male 2:58 PM TE[employer] Gender Identity Not on file Sexual Orientation Not on file documented as of this encounter Plan of Treatment Not on file documented as of this encounter Procedures Procedure Name Priority Date/Time Associated Diagnosis Comments PULMONARY - RESULT SCAN 11/21/2019 documented in this encounter Results * PULMONARY - RESULT SCAN (11/21/2019) Anatomical Region Laterality Modality Other us Provider Scanning Final Result documented in this encounter Visit Diagnoses Not on filedocumented in this encounter Care Teams Corporate Recycling Manager Relationship Specialty Start Date End Date Alexandra Tang PA PCP - General Nurse Practitioner 08/11/17 01/30/20 Luis Manuel Becerril MD [address] [facility] [place] [address] PCP - General Internal Medicine 01/31/20 documented as of this encounter
[2024-10-24 07:49] VITALS: BP 116/64; PULSE 61; RESP 20; TEMP 36.3; O2SAT 96
[2024-10-24] MEDS: LACTATED RINGERS 1,000 ML 150 ML IV CONT (07:56)
--- NOTE | 2024-10-24 07:59 | P.PNAN_ITS ---
Anes - Initial Pre Proc Eval Procedure: Operation Date: 10/24/24 09:00 Proposed Procedures p Colonoscopy - Humphrey Weston MD Date/Time: 10/24/24 07:59 Surgeon: Humphrey Weston MD Pre Op Diagnosis: personal hx colon polyps Patient Data Age: 64 Gender: M Height: 1.78 m Weight: 101 kg Last Vital Signs Temp 36.3 C L 10/24/24 07:49 Pulse 61 10/24/24 07:49 Resp 20 10/24/24 07:49 BP 116/64 10/24/24 07:49 Pulse Ox 96 10/24/24 07:49 O2 Del Method Room Air 10/24/24 07:49 Allergies Allergy/AdvReac Type Severity Reaction Status Date / Time No Known Allergies Allergy Unknown Verified 10/24/24 07:46 Home Medications ?Medication ?Instructions ?Recorded ?Confirmed ?Type brimonidine 0.15 % eye drops 1 drp EACH EYE BID 07/01/20 10/24/24 History hydroxychloroquine 400 mg PO DAILY 07/01/20 10/24/24 History latanoprost 0.005 % eye drops 1 drp EACH EYE DAILY 07/01/20 10/24/24 History leflunomide 10 mg tablet 10 mg PO DAILY 07/01/20 10/24/24 History metformin 1,000 mg tablet 1,000 mg PO BID 07/01/20 10/24/24 History rosuvastatin 20 mg tablet (Crestor) 20 mg PO DAILY 07/01/20 10/24/24 History alprazolam 0.25 mg tablet (Xanax) 0.25 mg PO QHS PRN anxiety 01/23/23 10/09/24 History fluticasone propionate 50 1 spray intranasal BID #16 grams 01/23/23 10/24/24 Rx mcg/actuation nasal spray,suspension (Flonase Allergy Relief) albuterol sulfate 2.5 mg/3 mL 2.5 mg (3 mL) inhalation Q4-6H PRN 04/04/23 10/09/24 Rx (0.083 %) solution for nebulization shortness of breath or wheezing #180 mL albuterol sulfate 90 mcg/actuation 2 inh inhalation Q4-6H PRN 09/26/23 10/09/24 Rx aerosol inhaler (ProAir HFA) shortness of breath or wheezing 90 days #25.5 grams budesonide-formoterol HFA 160 2 puff inhalation Q12H #30.6 grams 01/03/2410/24 Rx mcg-4.5 mcg/actuation aerosol inhaler (Symbicort) semaglutide 0.25 mg or 0.5 mg (2 mg subcut 01/03/24 01/03/24 History mg/3 mL) subcutaneous pen injector (Ozempic) valsartan 160 mg tablet 160 mg PO DAILY 01/03/24 10/24/24 History Patient hx anesthesia problems: none Family hx anesthesia problems: none Results Review: All pre-operative results and documents have been reviewed as part of the pre- operative evaluation. [facility] Past Medical History Medical History (Updated 10/23/24 @ 09:41 by Romeo Gutierrez DO) Rheumatoid arthritis Diabetes type 2, controlled Chronic obstructive pulmonary disease, unspecified Obstructive sleep apnea (adult) (pediatric) Family History Family History Sibling Acute myocardial infarction Father Cerebrovascular accident Family history of chronic obstructive pulmonary disease Mother Family history of congestive heart failure, Onset Age: 60 Social History Social History Smoking packs per day: 1 Smoking cigarettes per day: 20.0 Years smoked: 30 Smoking pack-years: 30.00 Smoking status: Former smoker Tobacco type: cigarettes Smoking end date: 05/08/12 Alcohol intake: never Substance use: never Substance use type: does not use Living arrangements: with family Spiritual care concerns: No Anes - Eval Final PreProcedure Day of Procedure 10/24/24 07:59 Patient weight: obese Heart: regular rate and rhythm Lungs: clear to auscultation Airway: Mallampati scale class II Neurological: alert and oriented Last oral intake: >/= 8 hours ASA classification: III Emergent: no Anesthetic plan: proceed Anesthesia type and monitoring: general GIVS and standard monitoring Results Review: All pre-operative results and documents have been reviewed as part of the pre- operative evaluation. Informed Consent: The patient's anesthetic plan and its attendant risks and benefits were discussed with the patient/family/POA. Questions were solicited and answers provided to the satisfaction of the patient/family/POA.
[2024-10-24 08:08] LABS: Glucose Point of Care 126 mg/dl (65-105)
--- NOTE | 2024-10-24 08:24 | PM.HPGS ---
History of Present Illness History of Present Illness Consent: Risks, benefits, and alternatives have been discussed and questions answered. Patient agrees to proceed with procedure. Chief complaint: personal hx colon polyps Narrative: Hernandez Gonzales is a 64 year old male here for colonoscopy, h/o polyp Review of Systems Review of Systems: All systems reviewed & are unremarkable except as noted in HPI and below PMFSH Past Medical History Medical History (Updated 10/24/24 @ 08:37 by Humphrey Weston MD) Colon polyp Rheumatoid arthritis Diabetes type 2, controlled Chronic obstructive pulmonary disease, unspecified Obstructive sleep apnea (adult) (pediatric) Family History Family History Sibling Acute myocardial infarction Father Cerebrovascular accident Family history of chronic obstructive pulmonary disease Mother Family history of congestive heart failure, Onset Age: 60 Social History Social History Smoking packs per day: 1 Smoking cigarettes per day: 20.0 Years smoked: 30 Smoking pack-years: 30.00 Smoking status: Former smoker Tobacco type: cigarettes Smoking end date: 05/08/12 Alcohol intake: never Substance use: never Substance use type: does not use Living arrangements: with family Spiritual care concerns: No Meds Home Medications and Allergies Home Medications ?Medication ?Instructions ?Recorded ?Confirmed ?Type brimonidine 0.15 % eye drops 1 drp EACH EYE BID 07/01/20 10/24/24 History hydroxychloroquine 400 mg PO DAILY 07/01/20 10/24/24 History latanoprost 0.005 % eye drops 1 drp EACH EYE DAILY 07/01/20 10/24/24 History leflunomide 10 mg tablet 10 mg PO DAILY 07/01/20 10/24/24 History metformin 1,000 mg tablet 1,000 mg PO BID 07/01/20 10/24/24 History rosuvastatin 20 mg tablet (Crestor) 20 mg PO DAILY 07/01/20 10/24/24 History alprazolam 0.25 mg tablet (Xanax) 0.25 mg PO QHS PRN anxiety 01/23/23 10/09/24 History fluticasone propionate 50 1 spray intranasal BID #16 grams 01/23/23 10/24/24 Rx mcg/actuation nasal spray,suspension (Flonase Allergy Relief) albuterol sulfate 2.5 mg/3 mL 2.5 mg (3 mL) inhalation Q4-6H PRN 04/04/23 10/09/24 Rx (0.083 %) solution for nebulization shortness of breath or wheezing #180 mL albuterol sulfate 90 mcg/actuation 2 inh inhalation Q4-6H PRN 09/26/23 10/09/24 Rx aerosol inhaler (ProAir HFA) shortness of breath or wheezing 90 days #25.5 grams budesonide-formoterol HFA 160 2 puff inhalation Q12H #30.6 grams 01/03/24 10/24/24 Rx mcg-4.5 mcg/actuation aerosol inhaler (Symbicort) semaglutide 0.25 mg or 0.5 mg (2 mg subcut 01/03/24 01/03/24 History mg/3 mL) subcutaneous pen injector (Ozempic) valsartan 160 mg tablet 160 mg PO DAILY 01/03/24 10/24/24 History Allergies Allergy/AdvReac Type Severity Reaction Status Date / Time No Known Allergies Allergy Unknown Verified 10/24/24 07:46 Vital Signs Vital Signs - 24 hr 10/24/24 07:49 Temperature 97.3 F L Pulse Rate 61 Respiratory Rate 20 Blood Pressure 116/64 Pulse Oximetry 96 Oxygen Delivery Room Air Exam Const: General: comfortable and no acute distress HENMT: Face/Nose/Sinus: Normal nares present Eyes: General: appearance normal, both eyes and all related structures Neck: Neck: no JVD Resp: Auscultation: clear to auscultation bilaterally Cardio: Rate: regular rate Rhythm: regular rhythm GI: Inspection: non-distended GI Palp: Yes Soft to palpation Skin: General skin exam: normal color Neuro: Speech: normal speech Extrem: General: normal to inspection Psych: Mental Status: mental status grossly normal Assessment and Plan Assessment and plan (1) Colon polyp: Code(s): K63.5 - Polyp of colon Status: Acute Assessment and Plan: colonoscopy
[2024-10-24 08:40] VITALS: BP 108/69; PULSE 63; RESP 24; O2SAT 97
[2024-10-24 08:50] VITALS: BP 111/56; PULSE 61; RESP 17; O2SAT 97
[2024-10-24 09:00] VITALS: BP 131/61; PULSE 62; RESP 17; O2SAT 98
== END 2024-10-24 09:05 | disposition home or self-care (01) ==
PROVIDERS: PCP Internal Medicine; Referring Provider Internal Medicine Gastroenterology; Visit Provider Internal Medicine Gastroenterology
PROC: 0DJD8ZZ Inspection of Lower Intestinal Tract, Via Natural or Artificial Opening Endoscopic (ICD-10-PCS; CPT 45378; principal; 2024-10-24 09:00)
DX: Z12.11 Encounter for screening for malignant neoplasm of colon (principal); K57.30 Diverticulosis of large intestine without perforation or abscess without bleeding; K64.8 Other hemorrhoids; Z86.0100 Personal history of colon polyps, unspecified; E11.9 Type 2 diabetes mellitus without complications; Z87.891 Personal history of nicotine dependence; E66.9 Obesity, unspecified; Z68.31 Body mass index [BMI] 31.0-31.9, adult
CPT/HCPCS: G0105; 82948; J2003; J2704; J7120

== ENCOUNTER 2025-01-07 07:56 | Outpatient (CLI) | payer MEDICARE, SELFPAY ==
--- NOTE | ~2025-01-07 | CT_ITS ---
EXAMINATION: CT sinus wo con DATE: 01/07/2025 08:27 INDICATION: Chronic sinusitis TECHNIQUE: Computed tomography (CT) of the paranasal sinuses was performed without intravenous contrast. The dose-length product was 280.01 mGy-cm. COMPARISON: CT dated 05/22/2014 FINDINGS: There is no significant mucosal thickening of the paranasal sinuses. No significant nasal septal deviation. No air-fluid levels. No evidence for mucoperiosteal reaction. Mastoids are pneumatized. IMPRESSION: 1. No significant sinus disease. Reviewed, dictated and finalized at location O.
== END 2025-01-07 07:57 | disposition home or self-care (01) ==
LOC: MICIMG 07:57
PROVIDERS: PCP Internal Medicine; Visit Provider Otolaryngology
DX: J32.9 Chronic sinusitis, unspecified (principal)
CPT/HCPCS: 70486

== ENCOUNTER 2025-01-24 09:01 | Outpatient (CLI) | payer MEDICARE, SELFPAY ==
--- OUTSIDE RECORDS SUMMARY | 2000-03-13 04:00 | XMS_ITS | Continuity of Care Document ---
Author Organization [facility] Address [id number] [place] [address] [address] [place] [address] Phone Care Team Providers Care Power Systems Engineer Name Role Phone Raghavendrasy, Edward Unavailable Unavailable Advance Directives Directive Yes / No Effective Date File Name No Information Encounters Encounter Description Practice Location Reason(s) For Visit Diagnoses Date Provider Providers Copied on Encounter [facility], [address], [place], [place], [id number], [place] tel:[phone] [facility] No Information Nov-0 6-200 0 Doisy Edward. [address] [facility] , [address], [place], [address], [place]. tel:[phone] Family History Family Member Type Diagnosis Age At Onset No Information Payers Payer name Insurance type Covered democrat ID Authoriza tion(s) No Information Social History Type Description Quantity Date Captured Comments Sex Male Smoking Status No Information Chief Complaint And Reason For Visit No Information Reason For Referral Reason For Referral No Information History Of Present Illness Encounter Date Complaint History Of Prese nt Illness No Information Functional Status Date Functional Assessmen t No Information Instructions Date Instruction Additional Infor mation No Information Assessments Type Assessment Date No Information Patient Care Teams Name Effective Dates (start - stop) Status Members No Information
--- NOTE | ~2025-01-24 | CT_ITS ---
EXAMINATION:CT lung screening DATE: 01/24/2025 09:20 INDICATION: Personal history of nicotine dependence. TECHNIQUE: Computed tomography (CT) of the chest was performed without intravenous contrast. Automated exposure control and iterative reconstruction technique were employed. The dose-length product (DLP) was 281.78 mGy-cm. COMPARISON: Chest CT 02/14/2023 FINDINGS: There is moderate emphysema. There is mild atelectasis in the inferior lungs. No pleural effusion. The heart size is normal. There are coronary artery calcifications. There are calcifications aortic valve. No pericardial effusion. There is mild thoracic spondylosis. There is mild chronic anterior wedging of L2 vertebral body. There is severe cervical spondylosis. IMPRESSION: 1. Lung-RADS category 1: Negative. Continue annual screening with noncontrast low-dose chest CT in 12 months. Reviewed, dictated and finalized at location E. IMPRESSION: 1. Lung-RADS category 1: Negative. Continue annual screening with noncontrast l ow-dose chest CT in 12 months.
--- OUTSIDE RECORDS SUMMARY | 2025-01-24 09:06 | XMS_ITS | Encounter Summary ---
Author Organization [facility] Address [facility] [place] [address] Care Team Providers Care Record Label Intern Name Role Phone Alexandra Tang Primary Care Provider [phone] Encounter Details Date Type Department Care Team (Latest Contact Info) Description 01/18/2018 Abstract [facility] , Andrea Craig MD Social [...] on filedocumented in this encounter Care Teams Record Label Intern Relationship Specialty Start Date End Date Alexandra Tang APNP [address] [place] [id number] PCP - General NURSE PRACTITIONER 04/20/18 documented as of this encounter
--- OUTSIDE RECORDS SUMMARY | 2025-01-24 09:06 | XMS_ITS | Clinical Summary ---
Author Organization [facility] Address [address] [facility] [place] [address] Care Team Providers Care Automation And Control Engineer Name Role Phone Pcp, [facility] Primary Care Provider Unavailable Source Comments [facility],non-owned Affiliates and Associated Physician Practices is amultiple site organization consisting of ambulatory clinics and hospital sitesin [place], [place], [place] and [place]. This disclosure is being madepursuant to the Care Everywhere program and may not contain all information available regarding this patient. 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 Not on file Not on file Last Filed Vital Signs Vital Sign Reading Time Taken Comments Blood Pressure 100/64 12/29/2011 3:12 PM CDT Pulse 72 12/29/2011 3:12 PM CDT Temperature 36.1 C (97 F) 12/29/2011 3:12 PM CDT Respiratory Rate 12 07/07/2010 4:06 PM CHEESE CUTTER Oxygen Saturation 98% 12/29/2011 3:12 PM CDT [...] or Tdap) 02/01/2021 02/01/2011 AAA SCREENING 2023 DEPRESSION SCREENING 05/08/2024 COVID-19 VACCINE (1 - 2023-2 5 season) 2025 INFLUENZA VACCINE (#1) 2025 01/27/2011 Respiratory Syncytial Virus (RSV) Vaccine Pt: or [...] CLIA certified lab, and not by the [facility] Bolt Machine Operator. The full result should be confirmed by [...] Most Recently Relevant to Health Maintenance Insurance [facility] COUNT INCLUDES THE [facility] Care Teams Automation And Control Engineer Relationship Specialty Start Date End Date Pcp, [facility] Im- PCP - General 12/02/22
--- OUTSIDE RECORDS SUMMARY | 2025-01-24 09:06 | XMS_ITS | Encounter Summary ---
Author Organization [facility] Address [address] [facility] [place] [address] Care Team Providers Care Neck Skewer Name Role Phone Darren Zapata MD Primary Care Provider Pcp, [facility] Primary Care Provider Unavailable Encounter Details Date Type Department Care Team (Late st Contact Info) Description 01/31/2019 Lab Requisition [facility] Care Derm[facility] Lab [address] [facility] [address] [place] [address] Fredy Sanchez MD [address] [place] [address] Social History Tobacco Use Types Packs/Day Years Used Date Smoking Tobacco: Every Day Cigarettes 0.8 35 Smokeless Tobacco: Never Alcohol Use Standard Drinks/Week Comments Yes 0 (1 standard drink = 0.6 oz pur e alcohol) 12/d during football games. 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 file Not on file Not on file documented as of this encounter Plan of Treatment Not on file documented as of this encounter Procedures Procedure Name Priority Date/Time Associated Diagnosis Comments DERMATOPATHOLOGY Routine 01/31/2019 12:0 0 AM CDT documented in this encounter Results * DERMATOPATHOLOGY (01/31/2019 12:00 AM CDT) Case Report Dermatopathology Report Case: [id number] Authorizing Provider: Fredy Sanchez MD Collected: 01/31/2019 12:00 AM Ordering Location: [facility] DermPath Lab Received: 01/31/2019 12:28 PM Pathologist: [...] specimen consists of a shave biopsy measuring [id number]. Jar 0. 3:04 PM CDT DERMATOPATHOLOGY LABORATORY [...] characteristic determined by the Dermatopathology Laboratory at [facility], directed by Dr. Darren Martini. These tests need not be, and therefore are not, approved by the [place] Food and Drug Administration. The tests are used for clinical purposes. Billing Codes Specimen Charges Stain Charges 22223 1 14706 1 10/01/201 9 3:04 PM CDT DERMATOPATHOLOGY LABORATORY Embedded Images 9 3:04 PM CDT DERMATOPATHOLOGY LABORATORY Pathology/Cytolog y TISSUE SPECIMEN FROM SKIN / Unknown 01/31/2019 01/31/2019 12:28 PM CDT us Fredy Sanchez MD LAB - PATHOLOGY/CYTOLOGY ORDERAB LES Final Result DERMATOPATHOLOGY LABORATORY [facility] - Department of Dermatology [address] [facility] Lab [address] [phone] documented in this encounter Visit Diagnoses Not on filedocumented in this encounter Care Teams Neck Skewer Relationship Specialty Start Date End Date Darren Zapata MD [address] [address] PCP - General Internal Medicine 12/27/11 12/01/22 [facility] PCP - General 12/02/22 documented as of this encounter
--- OUTSIDE RECORDS SUMMARY | 2025-01-24 09:06 | XMS_ITS | Clinical Summary ---
Author Organization [facility] [address] [facility] [address] Address [address] [facility] 162 [place] [address] [address] Providers Care Court Collections Officer Name Role Phone Luis Manuel Becerril MD [...] for muscle spasms 20 tablet 4 Active lidocaine (LIDODERM) 5 % Place 1 patch on the skin daily Remove & discard patch within 12 hours or as directed by . 15 patch [address] (VOLTAREN) 75 mg EC [...] mouth daily 180 tablet 1 5 Active leflunomide (ARAVA) 20 mg tabletIndicatio ns:Rheumatoid arthritis of multiple sites with negative rheumatoid factor (HCC) TAKE 1 TABLET DAILY 90 tablet 1 5 Active Active Problems Problem Noted Date Diagnosed Date Other specified glaucoma 01/03/2023 COPD (chronic obstructive pulmonary disease) DM (diabetes mellitus) 01/31/2020 Anxiety 10/12/2010 PHILIP (obstructive sleep apnea) 02/01/2010 Resolved Problems Problem Noted Date Diagnosed Date Resolved Date Shortness of breath 09/07/2017 01/31/20 20 Obesity (BMI 30-39.9) 09/07/20172021 Encounters Date Type Department Care Team Description 11/19/2024 8:25 AM CDT Lab [facility] [address] [place] [address] High risk medication use 11/19/2024 7:40 AM CDT Office Visit [facility] Medicine Rheumatology [address] [place] [address] Office [address] [place] [address] Hoda Helm NP Rheumatoid arthritis of multiple sites with negative rheumatoid factor (HCC) (Primary Dx); High risk medication use; Primary osteoarthritis involving multiple joints 11/19/2024 Results Follow-Up [facility] Medicine Rheumatology [address] [place] [address] [address] [place] [address] Hoda Helm NP Erythrocyte sedimentation rate, CRP (acute phase), Comprehensive metabolic panel, Additional followed-up results: 3 from Last 3 Months Surgical History Surgery Date Site/Laterality Comments HERNIA [...] e alcohol) social AUDIT-C Answer Date Recorded Q1: How often do you have a drink containing alcohol? Never 11/19/2024 Q2: How many drinks containi ng alcohol do you have on a typical day when you are drinking? Patient does not drink Q3: How often do you have si x or more drinks on one occasion? Never 11/19/2024 Personal Safety Answer Date Recorded Have you ever been in or are you currently in a harmful physical or emotional relationship or is someone making you feel afraid or unsafe? 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 Gender Identity Not on file Sexual Orientation Not on file Obstetrics History Last Filed Vital Signs Vital Sign Reading Time Taken Comments Blood Pressure 137/77 11/19/2024 7:40 AM CDT Pulse 62 11/19/2024 7:40 AM CDT Temperature 37.1 C (98.8 F) 11/19/2024 7:40 AM CDT Respiratory Rate 18 11/19/2024 7:40 AM CDT Oxygen Saturation 97% 04/26/2024 2:25 PM SHIPPING SUPERVISOR Inhaled Oxygen Concentration - - Weight 105.1 kg (231 lb 11.2 oz) 11/19/2024 7:40 AM CDT Height 177.8 cm (5' 10) 07/22/2024 7:34 AM CDT Body Mass Index 33.25 07/22/2024 7:34 AM CDT Plan of Treatment [...] Pneumococcal vaccine 65+ (3 of 3 - PCV20 or PCV21) 07/28/2020 06/02/2020, 12/29/2011 Abdominal Aortic Aneurysm (A AA) Screen 2023 Well Visit 65+ 2023 Influenza Vaccine (#1) 2025 , 02/12/2021, 02/14/2019, Additional history exists eGFR 11/19/2025 11/19/2024, 07/06, 01/22/2024, Additional history exists DTaP/Tdap/Td Vaccine (3 - Td or Tdap) 10/07/2027 10/06/2017, 02/01/2011 Hepatitis C Screening Completed 01/31/2020 Procedures Procedure Name Priority Date/Time Associated Diagnosis Comments EGFR Routine 11/19/2024 8:31 AM CDT High risk medication use DIFFERENTIAL AUTO Routine 11/19/2024 8:3 1 AM CDT High risk medication use CBC WITH AUTO DIFFERENTIAL Routine 11/19/2024 8:31 AM CDT High risk medication use COMPREHENSIVE METABOLIC PANEL Routine 11/19/2024 8:31 AM CDT High risk medication use CRP (ACUTE PHASE) Routine 11/19/2024 8:3 1 AM CDT High risk medication use ERYTHROCYTE SEDIMENTATION RATE Routine 11/19/2024 8:31 AM CDT High risk medication use HEPATITIS PANEL, ACUTE Routine 8:24 AM CDT Rheumatoid arthritis, involving unspecified site, unspecified rheumatoid factor presence (CMS/HCC) from Last 3 Months or Most Recently Relevant to Health Maintenance Results * eGFR (11/19/2024 8:31 AM CDT) eGFR 88 >=60 mL/min/1. 73 m2 Comment: Interpretive Data [...] interpretive data was last reviewed 2021. Blood 11/19/2024 8:31 AM CDT 11/19/2024 9:05 AM CDT Hoda Helm NP LAB BLOOD ORDERABLES nal Result [facility] [address] [facility]. Department of [facility] [place] [address] * Differential, auto (11/19/2024 8:31 AM CDT) Neutrophil abs 3.30 1.50 - 6.50 K/cumm Imm gran abs 0.02 0.00 - 0.10 K/cumm [facility] Lymphocyte abs 1.53 0.80 - 3.30 K/cumm [facility] Monocyte abs 0.64 0.20 - 0.80 K/cumm [facility] Eosinophil abs 0.30 0.00 - 0.50 K/cumm [facility] Basophil abs 0.06 0.00 - 0.10 K/cumm [facility] Neutrophil pct 56.5 % [facility] Comment: Interpretive Data Percent cell count reference ranges are not reported, since discordance with absolute values may lead to misinterpretation of CBC data. Current Interpretive Data was last revised on 2017. Imm gran pct 0.3 % [facility] Comment: Interpretive Data Percent cell count reference ranges are not reported, since discordance with absolute values may lead to misinterpretation of CBC data. Current Interpretive Data was last revised on 2017. Lymphocyte pct 26.2 % [facility] Comment: Interpretive Data Percent cell count reference ranges are not reported, since discordance with absolute values may lead to misinterpretation of CBC data. Current Interpretive Data was last revised on 2017. Monocyte pct 10.9 % [facility] Comment: Interpretive Data Percent cell count reference ranges are not reported, since discordance with absolute values may lead to misinterpretation of CBC data. Current Interpretive Data was last revised on 2017. Eosinophil pct 5.1 % [facility] Comment: Interpretive Data Percent cell count reference ranges are not reported, since discordance with absolute values may lead to misinterpretation of CBC data. Current Interpretive Data was last revised on 2017. Basophil pct 1.0 % [facility] Comment: Interpretive Data Percent cell count reference ranges are not reported, since discordance with absolute values may lead to misinterpretation of CBC data. Current Interpretive Data was last revised on 2017. Blood 11/19/2024 8:31 AM CDT 11/19/2024 9:05 AM CDT us Hoda Helm NP LAB BLOOD ORDERABLES Fi nal Result [facility] [address] [facility]. Department of [employer] [place] [address] * (ABNORMAL) CBC with auto differential (11/19/2024 8:31 AM CDT) WBC 5.85 3.80 - 9.90 K/cumm Hgb 12.9(L) 13.0 - 17.5 g/dL [facility] Hct 40.6 38.9 - 50.3 % [facility] Plt 212 150 - 400 K/cumm [facility] MPV 9.9 9.1 - 12.3 fL [facility] RBC 4.35 4.30 - 5.80 M/cumm [facility] MCV 93.3 81.3 - 96.4 fL [facility] MCH 29.7 27.1 - 33.3 pg [facility] MCHC 31.8(L) 32.3 - 35.7 g/dL [facility] RDW CV 13.6 11.1 - 14.9 % [facility] RDW SD 46.5 35.7 - 48.1 fL [facility] NRBC abs 0.00 0.00 - 0.01 K/cumm [facility] Blood 11/19/2024 8:31 AM CDT 11/19/2024 9:05 AM CDT Hoda Helm CHIEF MEDIA OFFICER LAB BLOOD ORDERABLES Fi nal Result Performing Organization Address [facility] Co de Phone Number [facility] [address] [employer] [place], [place] [id number] * Erythrocyte sedimentation rate (11/19/2024 8:31 AM CDT) Erythrocyte sedimentation rate 14 1 - 20 mm/hr Blood 11/19/2024 8:31 AM CDT 11/19/2024 9:05 AM CDT Hoda Helm CHIEF MEDIA OFFICER LAB BLOOD ORDERABLES Fi nal Result Performing Organization Address [facility] Co de Phone Number [facility] [address] [employer] [place] [address] * CRP (acute phase) (11/19/2024 8:31 AM CDT) CRP <3.0 <=10.0 mg/L Blood 11/19/2024 8:31 AM CDT 11/19/2024 9:05 AM CDT Hoda Helm NP LAB BLOOD ORDERABLES nal Result [facility] [address] [facility]. [place] [address] * Comprehensive metabolic panel (11/19/2024 8:31 AM CDT) [facility] Sodium 145 135 - 145 mmol/L Potassium, pl 4.9 3.3 - 4.9 mmol/L [facility] Chloride 110 97 - 110 mmol/L [facility] CO2 26 22 - 32 mmol/L [facility] Anion gap 9 2 - 15 mmol/L [facility] BUN 13 6 - 25 mg/dL [facility] Creatinine 0.95 0.80 - 1.30 mg/dL [facility] Glucose 118 70 - 199 mg/dL [facility] Comment: Interpretive Data Fasting glucose >/= 126 mg/dl is diagnostic for diabetes. Fasting is defined as no caloric intake for at least 8 hours. Fasting glucose between 100 mg/dl to 125 mg/dl is diagnostic of prediabetes. In a patient with classic symptoms of hyperglycemia or hyperglycemic crisis, a random glucose >/= 200 mg/dl is diagnostic for diabetes. In the absence of unequivocal hyperglycemia, results should be confirmed by repeat testing. The classification and Diagnosis of Diabetes Diabetes Care 202; 46: S19-S40. Current interpretive data was last revised 2022. Calcium 9.0 8.5 - 10.3 mg/dL [facility] Bilirubin, total 0.2 0.1 - 1.2 mg/dL [facility] Protein, pl 7.0 6.5 - 8.5 g/dL [facility] Albumin 4.6 3.5 - 5.0 g/dL [facility] Alk phos 85 40 - 130 Units/L [facility] ALT 27 7 - 55 Units/L [facility] AST 20 10 - 50 Units/L [facility] Blood 11/19/2024 8:31 AM CDT 11/19/2024 9:05 AM CDT Hoda Helm NP LAB BLOOD ORDERABLES nal Result [facility] [address] [address] [facility]. [place] [address] * (ABNORMAL) Hepatitis panel, acute (01/31/2020 8:24 AM CDT) Hep A IgM Nonreactive Nonreactive [facility] Comment: Interpretive Data: If Hep A IgM Ab is reported as Equivocal, a new sample should be drawn in two weeks for testing. Current interpretive data was last revised on 19. Testing performed by: [facility], [address] [place] [address]., [id number] Hep B core IgM Nonreactive Nonreactive [facility] Comment: Interpretive Data If HepB Core IgM Ab is reported as Equivocal, a new sample should be drawn in two weeks for testing. Current interpretive data was last revised on 19. Testing performed by: [facility], [address] [place] [address]., [id number] Hep C Ab Reactive(C) Nonreactive [facility] Comment: Critical result called to and read back by Makenna Garza RN on 01/31/20 1437 to [id number] Interpretive Data Nonreactive: Antibodies to HCV not [...] last revised on 2019. Testing performed by: [facility], [address] [place] [address]., [id number] HepBsAg Nonreactive Nonreactive [facility] Comment:Testing performed by : [facility], [address] [place] [address]., [id number] Blood specimen (specimen) 01/31/2020 8:24 AM CDT 01/31/2020 11:47 AM CDT Hoda Helm NP LAB MICROBIOLOGY - GENE RAL ORDERABLES Final Result Performing Organization Address City/State/ZIP Co or Phone Number [facility] [address] [facility]. [place] [address] from Last 3 Months or Most Recently Relevant to Health Maintenance Insurance [place] [facility] [employer] PPO POS [facility] CHOICE PLUS [facility] MEDICARE AET MEDICARE Care Teams Court Collections Officer Relationship Specialty Start Date End Date Luis Manuel Becerril MD [address] [facility] [address] [place] [address] PCP - General Internal Medicine 01/31/20
--- OUTSIDE RECORDS SUMMARY | 2025-01-24 09:06 | XMS_ITS | Clinical Summary ---
Author Organization [facility] Address [address] [place] [address] Care Team Providers Care Aircraft Pneudraulic Systems Mechanic Name Role Phone Alexandra Tang Primary Care Provider [phone] Allergies No known active allergies Medications Latanoprost 0.005 % Emulsion Apply 1 drop to eye daily. One drop each eye daily 08/28/2017 Active PROAIR HFA 108 (90 Base) MCG/ACT inhaler Inhale 1 puff into the lungs daily. 05/20/2017 Active budesonide-formo terol (SYMBICORT) 160-4.5 MCG/ACT inhaler Inhale 1 puff into the lungs 2 (two) times a day. 08/28/2017 Active meloxicam 15 MG tablet Take 1 tablet by mouth daily as needed. 11/04/2016 Active naproxen 500 MG tablet Take 1 tablet by mouth as needed. 01/18/2018 Active rosuvastatin 20 MG tablet Take 1 tablet by mouth daily. 03/10/2014 Active SPIRIVA RESPIMAT 1.25 MCG/ACT inhaler (SPIRIVA RESPIMAT) Inhale 1 puff into the lungs as needed. 02/23/2018 Active ALPRAZolam 1 MG tabletIndication s:Anxiety Take 1 tablet (1 mg total) by mouth 2 (two) times daily as needed. 60 tablet 1 04/23/2018 Active Active Problems Problem Noted Date Diagnosed Date COPD (chronic obstructive pu lmonary disease) (CMS/HCC HHS/HCC) 01/25/2018 Hand pain 01/25/2018 Shortness of breath on exertion 08/09/2017 Osteoarthrosis 11/21/2016 Low back pain 11/21/2016 Osteoarthritis of ankles, bilateral 11/21/2016 Arthritis 11/04/2016 Dyspnea 01/14/2016 Hypogonadism 01/14/2016 Hyperlipidemia 11/24/2011 Overview (04/23/2018): Overview: Hypertriglyceridemia TSH normal 11/16 Healthy Heart Diet handout 12/17 Alcohol use 02/01/2011 Overview (04/23/2018): Overview: Binge pattern with football viewing. History of colonic polyps 02/01/2011 Osteoarthritis of hand 02/01/2011 Anxiety 10/12/2010 Obstructive sleep apnea, adult 02/01/2010 Immunizations Immunization Administration Dates Next Due Influenza (Generic) 01/27/2011 Influenza Adult (Generic) 02/21/2018,02/15/2017, 02/25/2016 Pneumococcal (Pneumovax 23) 12/29/2011 Tdap (Generic) 02/01/2011 Family History Medical History Relation Comments COPD Father Heart Disease Father Arthritis Maternal Grandmother Depression Maternal Grandmother Diabetes Mother Heart Disease Mother Relation Status Comments Father Maternal Grandmother Mother Social History Tobacco Use Types Packs/Day Years Used Date Smoking Tobacco: Former Cigarettes Q uit: 04/23/2001 Smokeless Tobacco: Never Alcohol Use Standard Drinks/Week Comments Yes 3.3 (1 standard drink = 0.6 oz p ure alcohol) AUDIT-C Answer Date Recorded Frequency of Alcohol Consumption 2-3 times a wee k 04/23/2018 Average Number of Drinks Not on file 018 Frequency of Binge Drinking Not on file 04/07 Sex and Gender Information Value Date Recorded Sex Assigned at Not on file Legal Sex Male 7:08 PM CDT Gender Identity Not on file Sexual Orientation Not on file Last Filed Vital Signs Vital Sign Reading Time Taken Comments Blood Pressure 112/62 04/23/2018 1:22 PM PRINCIPAL LAW CLERK Pulse 75 04/23/2018 1:22 PM PRINCIPAL LAW CLERK Temperature - - Respiratory Rate 18 04/23/2018 1:22 PM PRINCIPAL LAW CLERK Oxygen Saturation 93% 04/23/2018 1:22 PM PRINCIPAL LAW CLERK Inhaled Oxygen Concentration - - Weight 115.1 kg (253 lb 11.2 oz) 04/23/2018 1:22 PM PRINCIPAL LAW CLERK Height 177.8 cm (5' 10) 04/23/2018 1:22 PM PRINCIPAL LAW CLERK Body Mass Index 36.4 04/23/2018 1:22 PM PRINCIPAL LAW CLERK Plan of Treatment Health Maintenance Due Date Last Done Comments Colorectal Cancer Screening Colonoscopy (10 Years) 1958 Hepatitis C 1976 Zoster Vaccines (1 of 2) 2008 Pneumococcal Vaccine: 50+ Ye ars (2 of 2 - PCV) 12/28/2012 12/29/2011 RSV Immunization or 60+ Years (1 - Risk 60-74 years 1-dose series) 2018 DTaP, Tdap and Td Vaccines ( 2 - Td or Tdap) 02/01/2021 02/01/2011 COVID-19 Vaccine (1 - 2023-2 5 season) 2025 Meningococcal B Vaccine Aged Out No l onger eligible based on patient's age to complete this topic Meningococcal Vaccine Aged Out No ana maría severo eligible based on patient's age to complete this topic RSV Immunizations Under 20 Months Aged Out No longer eligible based on patient's age to complete this topic [place] [address] [place] [address] Care Teams Aircraft Pneudraulic Systems Mechanic Relationship Specialty Start Date End Date Alexandra Tang APNP [address] [place] [id number] PCP - General NURSE PRACTITIONER 04/20/18
--- OUTSIDE RECORDS SUMMARY | 2025-01-24 09:06 | XMS_ITS | Encounter Summary ---
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
--- OUTSIDE RECORDS SUMMARY | 2025-01-24 09:07 | XMS_ITS | Encounter Summary ---
Author Organization 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
--- OUTSIDE RECORDS SUMMARY | 2025-01-24 09:07 | XMS_ITS | Encounter Summary ---
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
== END 2025-01-24 09:02 | disposition home or self-care (01) ==
PROVIDERS: PCP Internal Medicine; Visit Provider Physician Assistant
DX: Z12.2 Encounter for screening for malignant neoplasm of respiratory organs (principal); Z87.891 Personal history of nicotine dependence
CPT/HCPCS: 71271